=== PATIENT | male | born 1960 | race Caucasian/White ===

== ENCOUNTER 2016-04-23 20:02 | Emergency (ER) | payer OTHER, MEDICAID ==
--- NOTE | 2016-04-23 20:04 | EDPHY ---
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, abd surg w/ "lots of colon removed", difficulty walking - Social History Smoking Status: Current every day smoker Constitutional: Initial Vital Signs Temperature (C) 37.2 C 04/23/16 20:14 Heart Rate 106 H 04/23/16 20:14 Respiratory Rate 22 H 04/23/16 20:14 Blood Pressure 150/103 H 04/23/16 20:14 O2 Sat (%) 92 04/23/16 20:14 O2 Delivery Mode Non-Rebreather Mask O2 (L/minute) 92 Allergies/Adverse Reactions: Penicillins Allergy (Verified 12/27/15 16:15) Home Medications: Medication Instructions Recorded Albuterol [Proventil Neb] 3 ml IH Q4 03/27/15 Fluticasone/Salmeter 250/50Mcg 1 puffs IH BID 03/27/15 [Advair 250/50 (*)] Furosemide [Lasix 20 MG (*)] 20 mg PO DAILY 03/27/15 Ibuprofen [Motrin (*)] 800 mg PO BID 03/27/15 Omeprazole 20 mg PO DAILY 03/27/15 Potassium Cl [Klor-Con 20 meq (*)] 20 meq PO DAILY 03/27/15 Sodium Cl Nasal Gel [[place] Saline 1 brittany NS Q2 PRN 03/27/15 Nasal Gel] Sodium Cl Nasal [[place] (*)] 1 spray NS Q2 PRN 03/27/15 Tiotropium Inhaler [Spiriva 18 mcg IH DAILY 03/27/15 Handihaler] guaiFENesin [Robitussin Oral 200 mg PO Q4 PRN 03/27/15 Liquid (*)] Albuterol [Proventil Neb] 3 ml IH Q6 PRN 11/21/15 Cholecalciferol Vit D3 [Vitamin D3 6,000 units PO DAILY 10/13/16 2000 units tab (OTC)] Ibuprofen [Motrin (*)] 800 mg PO Q6 PRN 11/21/15 Polyethylene Glycol 3350 [Miralax 17 gm PO BID PRN 11/21/15 17 gm (*)] Polyethylene Glycol 3350 [Miralax 17 gm PO DAILY 11/21/15 17 gm (*)] predniSONE 10 mg PO DAILY 11/21/15 Cefdinir [Omnicef (*)] 300 mg PO BID #10 cap 11/24/15 predniSONE 40 mg PO DAILY #0 tablet 11/24/15 Medical Decision Making ED Course/Re-evaluation: CHIEF COMPLAINT: Dyspnea, hemoptysis HISTORY OF PRESENT ILLNESS: The patient is a 56 y/o male arriving via EMS from [facility] with reported hemoptysis and dyspnea. He complains of lower abdominal pain and has a history of colon cancer with colostomy. He is otherwise noncontributory and minimally cooperative with assessment. Staff reports that he was drinking alcohol today. He has additional history of COPD with chronic respiratory failure, is wheelchair bound, and has cirrhosis. His last admission for pneumonia and hypoxemia was in November 2015. REVIEW OF SYSTEMS: A 10 point review of systems was performed and is negative with the exception of the elements mentioned in the history of present illness. PHYSICAL EXAM: HR, BP, O2 Sat, RR. Temp noted General Appearance: Alert, well hydrated, follows commands but minimally conversant, and non-toxic appearing. Smells of EtOH Head: Atraumatic without scalp tenderness or obvious injury Eyes: Pupils equal, round, reactive to light and accommodation, EOMI, no trauma , no injection. Ears: Clear bilaterally, no perforation, normal landmarks Nose: Atraumatic, no rhinorrhea, clear. Throat: There is no erythema or exudates, no lesions, normal tonsils, mucus membranes moist. Neck: Supple, nontender, no lymphadenopathy. Respiratory: No retractions, no distress, no wheezes, and no accessory muscle use. Lungs have rhonchi bilaterally. Cardiovascular: Regular rate and rhythm, no murmurs, rubs, or gallops. Good capillary refill all extremities. Gastrointestinal: Abdomen is soft, diffuse tenderness, non-distended, umbilical hernia is reducible, no rebound, no guarding, no peritoneal signs. Ostomy present with poor output. Musculoskeletal: Normal active ROM of all extremities, atraumatic. No pedal edema. Neurological: Alert, oriented x2, and minimally interactive. Exam consistent with alcohol intoxication. Skin: No rashes, good turgor, no nodules on palpation. Past medical history: COPD, colon cancer, osteoarthritis, alcoholic, wheelchair bound, chronic respiratory failure, cirrhosis Past surgical history: colostomy, craniotomy age 7 Family history: noncontributory Social history: alcohol abuse, heavy smoker, hx IV drug abuse Prior medical records reviewed including admission DIAGNOSTICS/PROCEDURES/CRITICAL CARE TIME: Study: CT of the Chest Indication: dyspnea Results: CT scan of the chest was obtained. The results of the study are two new spiculate lesions that were not present in 2016, bibasilar mucous plugging and atelectasis. The study was read by the radiologist, Dr. López. I viewed the images myself on the PACS system. Study: CT of the Abdomen Indication: pain Results: CT scan of the abdomen was obtained. The results of the study are nothing acute The study was read by the radiologist, Dr. López. I viewed the images myself on the PACS system. DIFFERENTIAL DIAGNOSIS: The differential diagnosis for the patient's shortness of breath included but was not limited to bronchitis, COPD exacerbation, pneumonia, myocardial infarction, acute mountain sickness, high altitude pulmonary edema, congestive heart failure, and pulmonary embolus. MEDICAL DECISION MAKING: This is a chronically-ill appearing 56 y/o male who presents with dyspnea and abdominal pain. He has bilateral rhonchi throughout, smells of EtOH, and has diffuse abdominal tenderness. His ostomy output is minimal. He smells of EtOH. Plan for IV, labs, EtOH serum level, and chest and abdomen CTs. EtOH serum is 348. CTs show new lung lesions but an unremarkable abdomen. He will be discharged on azithromycin for bronchitis with recommendation to have repeat PET scan with his PCP next week. He will be discharged back to his facility. - Data Points Laboratory Results: Laboratory Results 04/23/16 20:30 04/23/16 20:30 04/23/16 04/23/16 04/23/16 20:30 20:30 20:30 WBC 12.06 10^3/uL H 10^3/uL (3.80-9.50) RBC 4.30 10^6/uL L 10^6/uL (4.40-6.38) Hgb 13.0 g/dL L g/dL (13.7-17.5) Hct 39.4 % L % (40.0-51.0) MCV 91.6 fL fL (81.5-99.8) MCH 30.2 pg pg (27.9-34.1) MCHC 33.0 g/dL g/dL (32.4-36.7) RDW 12.9 % % (11.5-15.2) Plt Count 228 10^3/uL 10^3/uL (150-400) MPV 9.3 fL fL (8.7-11.7) Neut % (Auto) 80.9 % H % (39.3-74.2) Lymph % (Auto) 11.1 % L % (15.0-45.0) [place] % (Auto) 7.0 % % (4.5-13.0) Eos % (Auto) 0.4 % L % (0.6-7.6) Baso % (Auto) 0.2 % L % (0.3-1.7) Nucleat RBC Rel Count 0.0 % % (0.0-0.2) Absolute Neuts (auto) 9.75 10^3/uL H 10^3/uL (1.70-6.50) Absolute Lymphs (auto) 1.34 10^3/uL 10^3/uL (1.00-3.00) Absolute Monos (auto) 0.84 10^3/uL H 10^3/uL (0.30-0.80) Absolute Eos (auto) 0.05 10^3/uL 10^3/uL (0.03-0.40) Absolute Basos (auto) 0.03 10^3/uL 10^3/uL (0.02-0.10) Absolute Nucleated RBC 0.00 10^3/uL 10^3/uL (0-0.01) Immature Gran % 0.4 % % (0.0-1.1) Immature Gran # 0.05 10^3/uL 10^3/uL (0.00-0.10) Sodium 140 mEq/L mEq/L (134-144) Potassium 4.1 mEq/L mEq/L (3.5-5.2) Chloride 87 mEq/L L mEq/L (97-110) Carbon Dioxide 34 mEq/l H mEq/l (22-31) Anion Gap 19 mEq/L H mEq/L (8-16) BUN 14 mg/dL mg/dL (7-23) Creatinine 0.5 mg/dL L mg/dL (0.7-1.3) Estimated GFR > 60 Glucose 103 mg/dL H mg/dL (70-100) Calcium 9.3 mg/dL mg/dL (8.5-10.4) Total Bilirubin 1.1 mg/dL mg/dL (0.1-1.4) Conjugated Bilirubin 0.6 mg/dL H mg/dL (0.0-0.5) Unconjugated Bilirubin 0.5 mg/dL mg/dL (0.0-1.1) AST 39 IU/L IU/L (17-59) ALT 53 IU/L IU/L (21-72) Alkaline Phosphatase 58 IU/L IU/L (38-126) Troponin I 0.013 ng/mL ng/mL (0-0.034) NT-Pro-B Natriuret Pep 72 pg/mL pg/mL (0-125) Total Protein 8.5 g/dL H g/dL (6.3-8.2) Albumin 4.6 g/dL g/dL (3.5-5.0) Ethyl Alcohol 348 mg/dL H mg/dL (0-10) Medications Given: Discontinued Medications Albuterol/Ipratropium (Duoneb) 3 ml IH EDNOW ONE Stop: 04/23/16 20:33 Last Admin: 04/23/16 20:47 Dose: 3 ml Sodium Chloride (Ns) 500 mls @ 0 mls/hr IV ONCE ONE PRN Reason: As Directed Stop: 04/23/16 20:33 Last Admin: 04/23/16 20:47 Dose: 500 mls Departure - Departure Disposition: Home, Routine, Self-Care Clinical Impression: Bronchitis, Lesion of lung Alcohol intoxication Qualifiers: Complication of substance-induced condition: uncomplicated Qualified Code(s): F10.120 - Alcohol abuse with intoxication, uncomplicated Condition: Fair Instructions: Alcohol Intoxication (ED), Acute Bronchitis (ED) Additional Instructions: 1. Take azithromycin as prescribed. Be sure to complete the entire prescription. 2. Follow up with your primary care provider on Wednesday to evaluate new abnormal findings of your lungs on your chest CT. The radiologist recommends getting a PET scan for further evaluation. Referrals: Win Wade MD [Medical Doctor] - As per Instructions Report Scribed for: Beau Aguillon Report Scribed by: Radha Malin Date of Report: 04/23/16 Time of Report: 21:48
[2016-04-23 20:18] VITALS: O2SAT 92
[2016-04-23] MEDS ORDERED: IPRATROPIUM/ALBUTEROL 3 ML DEYVIAL IH ONE (20:32)
[2016-04-23] MEDS ORDERED: NS 500 ML IV ONE (20:32)
[2016-04-23] MEDS ORDERED: IOPAMIDOL (ISOVUE 370) 100 ML BTL IV ONE (20:35)
[2016-04-23 20:36] LABS: % IMMATURE GRANULYOCYTES 0.4 % (0.0-1.1); ABSOLUTE IMMATURE GRANULOCYTES 0.05 10^3/uL (0.00-0.10); ADD DIFF? NO; ADD MORPH? NO; ADD SCAN? NO; ATYPICAL LYMPHOCYTE FLAG 10 (0-99); FRAGMENT RBC FLAG 0 (0-99); HEMATOCRIT 39.4 % (40.0-51.0); LEFT SHIFT FLG 0 (0-99); LIPEMIA HEMOLYSIS FLAG 80 (0-99); MEAN CELL HEMOGLOBIN 30.2 pg (27.9-34.1); MEAN CELL VOLUME 91.6 fL (81.5-99.8); MEAN PLATELET VOLUME 9.3 fL (8.7-11.7); PLATELET CLUMPS FLAG 0 (0-99); PLATELET COUNT 228 10^3/uL (150-400); RED CELL DISTRIBUTION WIDTH 12.9 % (11.5-15.2)
[2016-04-23 20:59] LABS: ALBUMIN 4.6 g/dL (3.5-5.0); BILIRUBIN,TOTAL 1.1 mg/dL (0.1-1.4); BILIRUBIN-CONJUGATED 0.6 mg/dL (0.0-0.5); BILIRUBIN-UNCONJUGATED 0.5 mg/dL (0.0-1.1); TOTAL PROTEIN 8.5 g/dL (6.3-8.2)
[2016-04-23 21:00] LABS: ANION GAP 19 mEq/L (8-16); CALCIUM 9.3 mg/dL (8.5-10.4); CARBON DIOXIDE 34 mEq/l (22-31); CHLORIDE 87 mEq/L (97-110); CREATININE 0.5 mg/dL (0.7-1.3); GLOMERULAR FILTRATION RATE > 60; GLUCOSE 103 mg/dL (70-100); POTASSIUM 4.1 mEq/L (3.5-5.2); SODIUM 140 mEq/L (134-144)
[2016-04-23 21:11] LABS: TROPONIN I 0.013 ng/mL (0-0.034)
[2016-04-23 21:19] LABS: ETHANOL SERUM 348 mg/dL (0-10)
[2016-04-23] MEDS ORDERED: AZITHROMYCIN 250 MG TAB PO ONE (21:44)
[2016-04-23 22:22] VITALS: BP 127/63; PULSE 98; RESP 20; TEMP 98.6
== END 2016-04-23 22:21 | disposition home or self-care (01) ==
LOC: EDUNIT#
DX: R91.1 Solitary pulmonary nodule (principal); J40 Bronchitis, not specified as acute or chronic; F10.120 Alcohol abuse with intoxication, uncomplicated; J44.9 Chronic obstructive pulmonary disease, unspecified; F17.200 Nicotine dependence, unspecified, uncomplicated; Z85.038 Personal history of other malignant neoplasm of large intestine
CPT/HCPCS: 71275; 74177; 99285; Q9967; G0480

== ENCOUNTER 2016-10-10 16:56 | Emergency (ER) | payer OTHER, MEDICAID ==
--- NOTE | 2016-10-10 16:57 | EDPHY ---
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, abd surg w/ "lots of colon removed", difficulty walking - Social History Smoking Status: Current every day smoker Constitutional: Initial Vital Signs Temperature (C) 36.7 C 10/10/16 16:56 Heart Rate 106 H 10/10/16 16:56 Respiratory Rate 20 10/10/16 16:56 Blood Pressure 147/90 H 10/10/16 16:56 O2 Sat (%) 94 10/10/16 16:56 O2 Delivery Mode Nasal Cannula O2 (L/minute) 6 Allergies/Adverse Reactions: Penicillins Allergy (Verified 10/10/16 17:01) Home Medications: Medication Instructions Recorded Albuterol [Proventil Neb] 3 ml IH Q4 03/27/15 Fluticasone/Salmeter 250/50Mcg 1 puffs IH BID 03/27/15 [Advair 250/50 (*)] Furosemide [Lasix 20 MG (*)] 20 mg PO DAILY 03/27/15 Ibuprofen [Motrin (*)] 800 mg PO BID 03/27/15 Omeprazole 20 mg PO DAILY 03/27/15 Potassium Cl [Klor-Con 20 meq (*)] 20 meq PO DAILY 03/27/15 Sodium Cl Nasal Gel [[place] Saline 1 brittany NS Q2 PRN 03/27/15 Nasal Gel] Sodium Cl Nasal [[place] (*)] 1 spray NS Q2 PRN 03/27/15 Tiotropium Inhaler [Spiriva 18 mcg IH DAILY 03/27/15 Handihaler] guaiFENesin [Robitussin Oral 200 mg PO Q4 PRN 03/27/15 Liquid (*)] Albuterol [Proventil Neb] 3 ml IH Q6 PRN 11/21/15 Cholecalciferol Vit D3 [Vitamin D3 6,000 units PO DAILY 11/21/15 2000 units tab (OTC)] Ibuprofen [Motrin (*)] 800 mg PO Q6 PRN 11/21/15 Polyethylene Glycol 3350 [Miralax 17 gm PO BID PRN 11/21/15 17 gm (*)] Polyethylene Glycol 3350 [Miralax 17 gm PO DAILY 11/21/15 17 gm (*)] predniSONE 10 mg PO DAILY 11/21/15 Cefdinir [Omnicef (*)] 300 mg PO BID #10 cap 11/24/15 predniSONE 40 mg PO DAILY #0 tablet 11/24/15 AZITHROMYCIN [Z-PACK] 250 mg PO DAILY #1 packet 04/23/16 Medical Decision Making - Diagnostics Imaging Results: Imaging Impressions Abdomen CT 10/10/16 17:08 Impression: 1. Moderate stool in the proximal colon, with no acute findings. 2. Stable appearance of Harjit's pouch. 3. Cholelithiasis, without evidence of cholecystitis. 4. Stable minimal nodular thickening of the gallbladder fundus, of doubtful clinical significance given the interval stability. 5. Additional findings, as above. Findings discussed with Beau Aguillon M.D., on October 10, 2016 at 1832. Imaging: Discussed imaging studies w/ brake drum molder Radiologist, I viewed and interpreted images myself ED Course/Re-evaluation: CHIEF COMPLAINT: Stoma complications HISTORY OF PRESENT ILLNESS: The patient is a 56 y/o male who presents with abdominal pain secondary to stoma complications. He had pancreatic cancer, which led to a Whipple. Ten years ago he had a blockage of his stoma. He has had no output from is stoma for 1.5 days. Denies chest pain, fever, chills, or other systemic illness. REVIEW OF SYSTEMS: A 10 point review of systems was performed and is negative with the exception of the elements mentioned in the history of present illness. PHYSICAL EXAM: HR, BP, O2 Sat, RR. Temp noted General Appearance: Alert, well hydrated, appropriate, and non-toxic appearing. Head: Atraumatic without scalp tenderness or obvious injury Eyes: Pupils equal, round, reactive to light and accommodation, EOMI, no trauma , no injection. Ears: Clear bilaterally, no perforation, normal landmarks Nose: Atraumatic, no rhinorrhea, clear. Throat: There is no erythema or exudates, no lesions, normal tonsils, mucus membranes moist. Neck: Supple, 2+ carotid upstroke, nontender, no lymphadenopathy. Respiratory: No retractions, no distress, no wheezes, and no accessory muscle use. Lungs are clear to auscultation bilaterally. Cardiovascular: Regular rate and rhythm, no murmurs, rubs, or gallops. Bilateral carotid, radial, dorsalis pedis, and posterior tibial pulses intact. Good capillary refill all extremities. Gastrointestinal: No obstruction of stoma, without parastomal hernia. Abdomen is soft, nontender, non-distended, no masses, no rebound, no guarding, no peritoneal signs. Musculoskeletal: Normal active ROM of all extremities, atraumatic. Neurological: Alert, appropriate, and interactive. The patient has normal DTRs and non-focal cranial nerves, motor, sensory, and cerebellar exam. Skin: No rashes, good turgor, no nodules on palpation. Past medical history: Pancreatic cancer, Past surgical history: Whipple, ostomy Family history: Noncontributory Social history: Resides in [place], originally from [place], DIAGNOSTICS/PROCEDURES/CRITICAL CARE TIME: Study: CT of the abdomen and pelvis with IV contrast Indication: rule out obstruction Results: CT scan of the abdomen and pelvis was obtained. The results of the study are constipation but no evidence of obstruction or other cause for abdominal distention. The study was read by the radiologist, Dr. Bubba Clifford. I viewed the images myself on the PACS system. DIFFERENTIAL DIAGNOSIS: The differential diagnosis for the patient's abdominal pain included but was not limited to appendicitis, cholecystitis, hernias, testicular torsion, gastritis, and urinary tract infection. MEDICAL DECISION MAKING: The patient is 56 y/o male who presents with abdominal pain . He is worried that he has an obstruction he has had 1 about 10 years ago. On exam there is no parastomal hernia, but the patient is at risk for bowel obstruction due to his extensive abdominal surgeries related to his pancreatic cancer and ostomy. 1742: Lab results show an slightly elevated white count. CT is unremarkable except for constipation. We will discharge this patient home taking some MiraLax. - Data Points Laboratory Results: Laboratory Results 10/10/16 16:55 10/10/16 16:55 10/10/16 10/10/16 16:55 16:55 WBC 12.74 10^3/uL H 10^3/uL (3.80-9.50) RBC 4.68 10^6/uL 10^6/uL (4.40-6.38) Hgb 13.8 g/dL g/dL (13.7-17.5) Hct 43.2 % % (40.0-51.0) MCV 92.3 fL fL (81.5-99.8) MCH 29.5 pg pg (27.9-34.1) MCHC 31.9 g/dL L g/dL (32.4-36.7) RDW 13.2 % % (11.5-15.2) Plt Count 239 10^3/uL 10^3/uL (150-400) MPV 9.8 fL fL (8.7-11.7) Neut % (Auto) 84.7 % H % (39.3-74.2) Lymph % (Auto) 8.9 % L % (15.0-45.0) [place] % (Auto) 4.9 % % (4.5-13.0) Eos % (Auto) 0.6 % % (0.6-7.6) Baso % (Auto) 0.4 % % (0.3-1.7) Nucleat RBC Rel Count 0.0 % % (0.0-0.2) Absolute Neuts (auto) 10.80 10^3/uL H 10^3/uL (1.70-6.50) Absolute Lymphs (auto) 1.13 10^3/uL 10^3/uL (1.00-3.00) Absolute Monos (auto) 0.62 10^3/uL 10^3/uL (0.30-0.80) Absolute Eos (auto) 0.08 10^3/uL 10^3/uL (0.03-0.40) Absolute Basos (auto) 0.05 10^3/uL 10^3/uL (0.02-0.10) Absolute Nucleated RBC 0.00 10^3/uL 10^3/uL (0-0.01) Immature Gran % 0.5 % % (0.0-1.1) Immature Gran # 0.06 10^3/uL 10^3/uL (0.00-0.10) Sodium 139 mEq/L mEq/L (134-144) Potassium 3.8 mEq/L mEq/L (3.5-5.2) Chloride 92 mEq/L L mEq/L (97-110) Carbon Dioxide 29 mEq/l mEq/l (22-31) Anion Gap 18 mEq/L H mEq/L (8-16) BUN 14 mg/dL mg/dL (7-23) Creatinine 0.6 mg/dL L mg/dL (0.7-1.3) Estimated GFR > 60 Glucose 162 mg/dL H mg/dL (70-100) Calcium 10.1 mg/dL mg/dL (8.5-10.4) Total Bilirubin 0.8 mg/dL mg/dL (0.1-1.4) Conjugated Bilirubin 0.3 mg/dL mg/dL (0.0-0.5) Unconjugated Bilirubin 0.5 mg/dL mg/dL (0.0-1.1) AST 26 IU/L IU/L (17-59) ALT 35 IU/L IU/L (21-72) Alkaline Phosphatase 51 IU/L IU/L (38-126) Total Protein 8.4 g/dL H g/dL (6.3-8.2) Albumin 4.6 g/dL g/dL (3.5-5.0) Lipase 56 IU/L IU/L (23-300) Departure - Departure Disposition: Home, Routine, Self-Care Clinical Impression: Constipation Qualifiers: Constipation type: chronic idiopathic constipation Qualified Code(s): K59.04 - Chronic idiopathic constipation Condition: Good Instructions: Constipation (ED), High Fiber Diet (ED) Additional Instructions: 1. Take Miralax as prescribed on the bottle. 2. Take 1 pint of magnesium citrate in addition to Miralax. 3. Follow up with your primary care provider for unimproved symptoms. Dr. Braden Alicia is the event specialist food demonstrator physician if you do not have a primary care physician. 4. Return to the ED if you experience, fever, worsening abdominal pain, nausea, vomiting, or other severe worsening of your symptoms. Referrals: Patient,NotPresent [Primary Care Provider] - As per Instructions Report Scribed for: Beau Aguillon Report Scribed by: Andie Whitlock Date of Report: 10/10/16 Time of Report: 18:51
[2016-10-10 17:13] LABS: % IMMATURE GRANULYOCYTES 0.5 % (0.0-1.1); ABSOLUTE IMMATURE GRANULOCYTES 0.06 10^3/uL (0.00-0.10); ADD DIFF? NO; ADD MORPH? NO; ADD SCAN? NO; ATYPICAL LYMPHOCYTE FLAG 0 (0-99); FRAGMENT RBC FLAG 0 (0-99); HEMATOCRIT 43.2 % (40.0-51.0); HEMOGLOBIN 13.8 g/dL (13.7-17.5); LEFT SHIFT FLG 0 (0-99); LIPEMIA HEMOLYSIS FLAG 80 (0-99); MEAN CELL HEMOGLOBIN 29.5 pg (27.9-34.1); MEAN CELL HEMOGLOBIN CONCENTR. 31.9 g/dL (32.4-36.7); MEAN CELL VOLUME 92.3 fL (81.5-99.8); MEAN PLATELET VOLUME 9.8 fL (8.7-11.7); PLATELET CLUMPS FLAG 0 (0-99); PLATELET COUNT 239 10^3/uL (150-400); RED BLOOD CELL COUNT 4.68 10^6/uL (4.40-6.38); RED CELL DISTRIBUTION WIDTH 13.2 % (11.5-15.2)
[2016-10-10 17:29] LABS: ALANINE AMINOTRANSFERASE 35 IU/L (21-72); ALBUMIN 4.6 g/dL (3.5-5.0); ALKALINE PHOSPHATASE 51 IU/L (38-126); ANION GAP 18 mEq/L (8-16); ASPARTATE AMINOTRANSFERASE 26 IU/L (17-59); BILIRUBIN,TOTAL 0.8 mg/dL (0.1-1.4); BILIRUBIN-CONJUGATED 0.3 mg/dL (0.0-0.5); BILIRUBIN-UNCONJUGATED 0.5 mg/dL (0.0-1.1); CALCIUM 10.1 mg/dL (8.5-10.4); CARBON DIOXIDE 29 mEq/l (22-31); CHLORIDE 92 mEq/L (97-110); CREATININE 0.6 mg/dL (0.7-1.3); GLOMERULAR FILTRATION RATE > 60; GLUCOSE 162 mg/dL (70-100); POTASSIUM 3.8 mEq/L (3.5-5.2); SODIUM 139 mEq/L (134-144); TOTAL PROTEIN 8.4 g/dL (6.3-8.2)
[2016-10-10] MEDS ORDERED: IOPAMIDOL (ISOVUE-300) 100 ML BTL ONE (17:36)
[2016-10-10 18:55] VITALS: PULSE 92; TEMP 98.2
[2016-10-10 19:23] VITALS: BP 116/83; RESP 16; O2SAT 97
== END 2016-10-10 19:56 | disposition home or self-care (01) ==
LOC: EDUNIT#
DX: K59.04 Chronic idiopathic constipation (principal); F17.200 Nicotine dependence, unspecified, uncomplicated; J44.9 Chronic obstructive pulmonary disease, unspecified; Z85.038 Personal history of other malignant neoplasm of large intestine
CPT/HCPCS: 74177; 99285; Q9967

== ENCOUNTER 2017-01-02 07:37 | Inpatient (IN) | payer OTHER, MEDICAID ==
--- NOTE | 2017-01-02 07:37 | EDPHY ---
HPI/HX/ROS/PE/MDM Narrative: CHIEF COMPLAINT: Shortness of breath HPI: The patient is a 56 y/o male arriving emergently via EMS from [place] complaining of severe shortness of breath that began last night, although staff reported it began acutely at shift change this morning. The patient has a history that includes COPD and is chronically on 6L and a daily cigarette smoker. He initially was barely able to speak and EMS found him with an initial HR of 170 and RR of 40. EMS administered a duo neb en route as patient was unable to tolerate CPAP. After morphine administration in the ED, he is able to tell me he's had chest pain and a fever for a few days. He was admitted last year with similar symptoms and diagnosed with pneumonia. Did get a flu vaccination this year. REVIEW OF SYSTEMS: Aside from elements discussed in the HPI, a comprehensive 10-point review of systems was reviewed and is negative. PMH: 1. COPD, chronic bronchitis 2. Anemia 3. Depression 4. GERD with esophagitis 5. Hepatitis C 6. Colon cancer 7. History of alcohol abuse 8. TBI at age 14 requiring surgery 9. Wheelchair-bound PSH: 1. Appendectomy 2. Colon resection with colostomy SOCIAL HISTORY: Lives at [place]. DNR transferred with patient PHYSICAL EXAM: General:Patient is alert, in respiratory distress, tachypneic, grunting, diaphoretic. Febrile 38.6C. ENT:Eyes are normal to inspection. ENT inspection normal. Neck: Normal inspection. Full range of motion. Respiratory: Acute respiratory distress. Pursed lip breathing. Expiratory grunting. Breath sounds diminished bilaterally. Tachypneic. Cardiovascular: Rapid regular rate and rhythm. Strong peripheral pulses. Normal cap refill. Abdomen:The abdomen is nontender to palpation. There are no peritoneal signs. Ostomy. Back: Normal to inspection. No tenderness to palpation. Skin: Normal color. No rash. Warm and diaphoretic. Extremities: Legs have atrophied appearance. Normal passive range of motion. Neuro: Oriented x3. Normal motor function. Normal sensory function. ED Course: 735: Met EMS upon arrival and took report. This is a 56 y/o male with COPD and several comorbidities who presents with a several hour history of respiratory distress. He was unable to tolerate CPAP en route. EMS administered a duo neb and high flow O2 for symptoms. He is diaphoretic, tachypneic, tachycardic, febrile, and has pursed lip breathing on exam. He is currently unable to tolerate BiPAP here. His SpO2 is wavering between 88-90% with 15LPM O2 after the duo neb. Plan for IV, labs, chest x-ray, EKG, and respiratory management in conjunction with RT. The patient has a DNR and though he could be a candidate for intubation, we will focus on non-invasive respiratory care in line with his wishes. 0744: 4mg IV morphine administered for chest pain. 0747: Patient is currently on 15LPM via Oxy mask, and 5LPM via NC, which is maintaining his SpO2 around 91-92%. I have been unable to convince him to try BiPap though I believe this will help his symptoms significantly. The 12 lead EKG was interpreted by myself. Narrow complex, sinus tachycardia rate 168. See hard copy and/or "tracemaster" electronic copy for interpretation. Chest x-ray shows LLL pneumonia. 750mg IV Levaquin ordered. Patient meets criteria for sepsis. Sepsis labs drawn. Patient will still not tolerate BiPap. 1mg IV Ativan and 4mg IV morphine administered for pain and anxiety. Patient meets severe sepsis with WBC 29, fever, tachycardia, and source of infection. 2L IV NS ordered. 0816: Spoke with Dr. Martinez, hospitalist. He accepts admission for pneumonia and respiratory failure. RT has attempted 6 times to get an ABG and has not been successful. Critical care time spent by me, Dr. Zavala, exclusively with this patient was 45 minutes, exclusive of PA time and exclusive of procedures. The organ system at risk was respiratory and I urgently treated for respiratory failure, severe sepsis, and pneumonia to prevent worsening of the patient's condition. MDM: This patient presents with acute severe respiratory failure, and would certainly be a case for immediate intubation, but patient arrives with a signed MOST form indicating he is DNR/DNI and he agrees verbally with this as well. We attempted BiPAP but the patient would not tolerate it. I also considered central venous access, but patient indicates he does not want aggressive measures performed. He clearly is very ill with pneumonia among other medical issues. He requires admission to the ICU. - Data Points Imaging Results: Imaging Impressions Chest X-Ray 01/02/17 07:39 Impression: New left perihilar airspace consolidation. Pneumonia versus aspiration, versus less likely, mass with central obstruction (no associated volume loss). Imaging: I viewed and interpreted images myself Laboratory Results: Laboratory Results 01/02/17 07:45 01/02/17 07:45 01/02/17 01/02/17 01/02/17 08:08 08:05 07:45 WBC RBC Hgb POC Hgb Hct POC Hct MCV MCH MCHC RDW Plt Count MPV Neut % (Auto) Lymph % (Auto) [place] % (Auto) Eos % (Auto) Baso % (Auto) Nucleat RBC Rel Count Absolute Neuts (auto) Absolute Lymphs (auto) Absolute Monos (auto) Absolute Eos (auto) Absolute Basos (auto) Absolute Nucleated RBC Immature Gran % Seg Neutrophils % Band Neutrophils % Lymphocytes % Monocytes % Immature Gran # Absolute Seg Neuts Absolute Band Neuts Absolute Lymphocytes Absolute Monocytes RBC/WBC/PLT Morphology Platelet Estimate Smear Review By PT 14.9 SEC SEC (12.0-15.0) INR 1.17 H (0.83-1.16) APTT 28.5 SEC SEC (23.0-38.0) VBG Lactic Acid 2.1 mmol/L mmol/L (0.7-2.1) POC Sodium Sodium POC Potassium Potassium POC Chloride Chloride Carbon Dioxide Anion Gap POC BUN BUN Creatinine POC Creatinine Estimated GFR Glucose POC Glucose Calcium Magnesium Pending Troponin I Procalcitonin Pending 01/02/17 01/02/17 01/02/17 07:45 07:45 07:38 WBC 29.06 10^3/uL H 10^3/uL (3.80-9.50) RBC 4.06 10^6/uL L 10^6/uL (4.40-6.38) Hgb 12.5 g/dL L g/dL (13.7-17.5) POC Hgb 14.6 gm/dL gm/dL (13.7-17.5) Hct 37.9 % L % (40.0-51.0) POC Hct 43 % % (40-51) MCV 93.3 fL fL (81.5-99.8) MCH 30.8 pg pg (27.9-34.1) MCHC 33.0 g/dL g/dL (32.4-36.7) RDW 13.2 % % (11.5-15.2) Plt Count 300 10^3/uL 10^3/uL (150-400) MPV 9.3 fL fL (8.7-11.7) Neut % (Auto) Not Reported Lymph % (Auto) Not Reported [place] % (Auto) Not Reported Eos % (Auto) Not Reported Baso % (Auto) Not Reported Nucleat RBC Rel Count 0.0 % % (0.0-0.2) Absolute Neuts (auto) Not Reported Absolute Lymphs (auto) Not Reported Absolute Monos (auto) Not Reported Absolute Eos (auto) Not Reported Absolute Basos (auto) Not Reported Absolute Nucleated RBC 0.00 10^3/uL 10^3/uL (0-0.01) Immature Gran % Not Reported Seg Neutrophils % 65 % % Band Neutrophils % 15 % % Lymphocytes % 9 % % Monocytes % 11 % % Immature Gran # Not Reported Absolute Seg Neuts 18.89 10^/uL H 10^/uL (1.70-6.50) Absolute Band Neuts 4.36 10^3/uL H 10^3/uL (0.00-0.70) Absolute Lymphocytes 2.62 10^3/uL 10^3/uL (1.00-3.00) Absolute Monocytes 3.20 10^3/uL H 10^3/uL (0.30-0.80) RBC/WBC/PLT Morphology NORMAL (NORMAL) Platelet Estimate ADEQUATE (ADEQ) Smear Review By Pending PT INR APTT VBG Lactic Acid POC Sodium 138 mEq/L mEq/L (134-144) Sodium 140 mEq/L mEq/L (134-144) POC Potassium 3.7 mEq/L mEq/L (3.3-5.0) Potassium 3.9 mEq/L mEq/L (3.5-5.2) POC Chloride 91 mEq/L L mEq/L (97-110) Chloride 89 mEq/L L mEq/L (97-110) Carbon Dioxide 34 mEq/l H mEq/l (22-31) Anion Gap 17 mEq/L H mEq/L (8-16) POC BUN 16 mg/dL mg/dL (7-23) BUN 16 mg/dL mg/dL (7-23) Creatinine 0.8 mg/dL mg/dL (0.7-1.3) POC Creatinine 0.9 mg/dL mg/dL (0.7-1.3) Estimated GFR > 60 Glucose 166 mg/dL H mg/dL (70-100) POC Glucose 172 mg/dL H mg/dL (70-100) Calcium 9.4 mg/dL mg/dL (8.5-10.4) Magnesium Troponin I 0.115 ng/mL H ng/mL (0.000-0.034) Procalcitonin Medications Given: Levofloxacin/Dextrose (Levaquin 750 Mg (Premix)) 150 mls @ 100 mls/hr IV EDNOW ONE PRN Reason: Protocol Stop: 01/02/17 09:27 Last Admin: 01/02/17 08:08 Dose: 150 mls Discontinued Medications Sodium Chloride (Ns) 2,200 mls @ 4,400 mls/hr 30 ml/kg infuse over 30 min ( 2200 ml) IV EDNOW ONE PRN Reason: Protocol Stop: 01/02/17 08:54 Last Admin: 01/02/17 07:40 Dose: 2,200 mls Lorazepam (Ativan Injection) 1 mg IVP EDNOW ONE Stop: 01/02/17 08:09 Last Admin: 01/02/17 08:11 Dose: 1 mg Morphine Sulfate (Morphine) 4 mg IVP EDNOW ONE Stop: 01/02/17 08:04 Last Admin: 01/02/17 08:09 Dose: 4 mg Morphine Sulfate (Morphine) 4 mg IVP EDNOW ONE Stop: 01/02/17 08:15 Last Admin: 01/02/17 08:20 Dose: 4 mg Point of Care Test Results: 01/02/17 07:38 POC Sodium 138 POC Potassium 3.7 POC Chloride 91 L POC BUN 16 POC Creatinine 0.9 POC Glucose 172 H General Initial Vital Signs: Initial Vital Signs Temperature (C) 38.6 C H 01/02/17 07:36 Heart Rate 168 H 01/02/17 07:36 Respiratory Rate 44 H 01/02/17 07:36 Blood Pressure 163/108 H 01/02/17 07:36 O2 Sat (%) 92 01/02/17 07:36 O2 Delivery Mode Nasal Cannula O2 (L/minute) 15 Allergies/Adverse Reactions: Penicillins Allergy (Verified 10/10/16 17:01) Home Medications: Medication Instructions Recorded Fluticasone/Salmeter 250/50Mcg 1 puffs IH BID 03/27/15 [Advair 250/50 (*)] Furosemide [Lasix 20 MG (*)] 20 mg PO DAILY 03/27/15 Omeprazole 20 mg PO DAILY 03/27/15 Potassium Cl [Klor-Con 20 meq (*)] 20 meq PO DAILY 03/27/15 Sodium Cl Nasal [[place] (*)] 1 spray NS Q2 PRN 03/27/15 Tiotropium Inhaler [Spiriva 18 mcg IH DAILY 03/27/15 Handihaler] Albuterol [Proventil Neb] 3 ml IH Q4 PRN 11/21/15 Cholecalciferol Vit D3 [Vitamin D3 6,000 units PO DAILY 11/21/15 2000 units tab (OTC)] Polyethylene Glycol 3350 [Miralax 17 gm PO HS 11/21/15 17 gm (*)] Ibuprofen [Motrin (*)] 600 mg PO BID 01/02/17 Departure - Departure Disposition: [facility] Inpatient Acute Clinical Impression: Severe sepsis Pneumonia Qualifiers: Pneumonia type: due to unspecified organism Laterality: left Lung location: lower lobe of lung Qualified Code(s): J18.1 - Lobar pneumonia, unspecified organism Respiratory failure Qualifiers: Chronicity: acute Respiratory failure complication: hypoxia Qualified Code(s): J96.01 - Acute respiratory failure with hypoxia Condition: Fair Report Scribed for: Immanuel Zavala Report Scribed by: Radha Malin Date of Report: 01/02/17 Time of Report: 07:30 Physician Review and Approval Statement: Portions of this note were transcribed by an ED scribe. I personally performed the history, physical exam, and medical decision making; and confirm the accuracy of the information in the transcribed note.
[2017-01-02] MEDS: NS 2,200 ML IV ONE ×2 (07:40→09:15)
--- NOTE | 2017-01-02 07:50 | CPEKG ---
Heart Rate: 168 RR Interval: 357 P-R Interval: 110 QRSD Interval: 244 QT Interval: 376 QTC Interval: 629 P Arthur: -60 QRS Arthur: 41 T Wave Arthur: -79 EKG Severity - ABNORMAL ECG - EKG Impression: Sinus tachycardia vs SVT, cannot differentiate due to artifact Electronically Signed By: Ant Rosales 04-Jan-2017 11:04:08
[2017-01-02 07:55] LABS: ADD DIFF? YES; ADD MORPH? NO; ATYPICAL LYMPHOCYTE FLAG 0 (0-99); FRAGMENT RBC FLAG 0 (0-99); HEMATOCRIT 37.9 % (40.0-51.0); HEMOGLOBIN 12.5 g/dL (13.7-17.5); LEFT SHIFT FLG 130 (0-99); LIPEMIA HEMOLYSIS FLAG 80 (0-99); MEAN CELL HEMOGLOBIN 30.8 pg (27.9-34.1); MEAN CELL VOLUME 93.3 fL (81.5-99.8); MEAN PLATELET VOLUME 9.3 fL (8.7-11.7); PLATELET CLUMPS FLAG 0 (0-99); PLATELET COUNT 300 10^3/uL (150-400); RED BLOOD CELL COUNT 4.06 10^6/uL (4.40-6.38); RED CELL DISTRIBUTION WIDTH 13.2 % (11.5-15.2)
[2017-01-02 07:56] LABS: ADD SCAN? NO
[2017-01-02 08:05] LABS: ANION GAP 17 mEq/L (8-16); CALCIUM 9.4 mg/dL (8.5-10.4); CARBON DIOXIDE 34 mEq/l (22-31); CHLORIDE 89 mEq/L (97-110); CREATININE 0.8 mg/dL (0.7-1.3); GLOMERULAR FILTRATION RATE > 60; GLUCOSE 166 mg/dL (70-100); POTASSIUM 3.9 mEq/L (3.5-5.2); SODIUM 140 mEq/L (134-144)
[2017-01-02] MEDS ORDERED: LORazepam 2 MG/ML INJ IVP ONE (08:08)
[2017-01-02 08:12] LABS: INR 1.17 (0.83-1.16); PROTIME(PATIENT) 14.9 SEC (12.0-15.0)
[2017-01-02 08:13] LABS: APTT 28.5 SEC (23.0-38.0)
[2017-01-02 08:14] LABS: PLATELET ESTIMATE ADEQUATE (ADEQ)
[2017-01-02 08:17] LABS: TROPONIN I 0.115 ng/mL (0.000-0.034)
[2017-01-02] MEDS ORDERED: methylPREDNISolone SOD SUCC 125 MG/2 ML VIAL ONE (08:55)
[2017-01-02] MEDS: methylPREDNISolone SOD SUCC 125 MG/2 ML VIAL IVP ONE ×2 (09:00)
[2017-01-02 09:05] LABS: PROCALCITONIN 0.43 ng/mL (0.02-0.10)
[2017-01-02 09:08] LABS: LACGHOST ORDER
[2017-01-02] MEDS ORDERED: ONDANSETRON DISINTEGRATING 4 MG TAB PO PRN (09:08)
[2017-01-02] MEDS ORDERED: ALBUTEROL 3 ML DEYVIAL IH PRN (09:08)
[2017-01-02] MEDS ORDERED: oxyCODONE IR 5 MG TAB PO PRN (09:08)
[2017-01-02] MEDS ORDERED: ACETAMINOPHEN 325 MG TAB PO PRN (09:08)
[2017-01-02] MEDS ORDERED: LORazepam 2 MG/ML INJ IVP PRN (09:08)
[2017-01-02 09:12] LABS: MAGNESIUM 1.3 mg/dL (1.6-2.3)
[2017-01-02] MEDS ORDERED: SODIUM CL NASAL 45 ML BTL NS PRN (09:19)
--- NOTE | 2017-01-02 09:27 | PDGENHP ---
History and Physical - Chief Complaint SOB - History of Present Illness 56 yo senior care patient with hx of COPD and chronic resp failure p/w acute on chronic resp failure x 2 days. He is typically on 6 L O2. Now requiring 15 L , increased WOB. Has not tolerated BiPAP in the ED CXR shows left sided pneumonia. He has been started on Levaquin. Sepsis alert was triggered and he has been started on high amounts of IVF. He has pedal edema and is on Lasix at home. His main complain is SOB and cant breath. He reports that he is a full code including intubation which is different than his MOST form Studies: -CXR personally reviewed: Left perihilar consolidation, no overt fluid overload -WBC: 29 -EKG: narrow complex tachycardia Denies fever, worsened pedal edema, palpitations, focal weakness, N/V/D. PMHx: COPD, Chronic resp failure 6L 24/7, Tobacco abuse disorder, Anemia, Depression, GERD, Hep C, Colon Ca, Hx of ETOH abuse (none currently), TBI, wheelchair bound PSHx: Colon resection, craniectomy at age 7 FmHx: cirrhosis Soc: lives in SNF, +daily cigarette use, prior ETOH History Information - Allergies/Home Medication List Allergies/Adverse Reactions: Penicillins Allergy (Verified 10/10/16 17:01) Home Medications: Fluticasone/Salmeter 250/50Mcg [Advair 250/50 (*)] 1 puffs IH BID 03/27/15 [ Last Taken 01/01/17] Furosemide [Lasix 20 MG (*)] 20 mg PO DAILY 03/27/15 [Last Taken 01/01/17] Omeprazole 20 mg PO DAILY 03/27/15 [Last Taken 01/01/17] Potassium Cl [Klor-Con 20 meq (*)] 20 meq PO DAILY 03/27/15 [Last Taken 01/01/17 ] Sodium Cl Nasal [[place] (*)] 1 spray NS Q2 PRN 03/27/15 [Last Taken Unknown ] Tiotropium Inhaler [Spiriva Handihaler] 18 mcg IH DAILY 03/27/15 [Last Taken ] Albuterol [Proventil Neb] 3 ml IH Q4 PRN 11/21/15 [Last Taken Unknown] Cholecalciferol Vit D3 [Vitamin D3 2000 units tab (OTC)] 6,000 units PO DAILY [Last Taken 01/01/17] Polyethylene Glycol 3350 [Miralax 17 gm (*)] 17 gm PO HS 11/21/15 [Last Taken ] Ibuprofen [Motrin (*)] 600 mg PO BID 01/02/17 [Last Taken 01/01/17] I have personally reviewed and updated: family history, medical history, social history, surgical history - Social History Smoking Status: Light smoker Review of Systems Review of Systems: ROS: 10pt was reviewed & negative except for what was stated in HPI & below Physical Exam Physical Exam: Temp Pulse Resp BP Pulse Ox 38.6 C H 132 H 28 H 111/77 92 01/02/17 07:36 01/02/17 09:09 01/02/17 09:09 01/02/17 09:09 01/02/17 09:09 O2 (L/minute) 92 Constitutional: uncomfortable Eyes: PERRL, EOMI Ears, Nose, Mouth, Throat: moist mucous membranes, hearing normal Cardiovascular: tachycardia, edema (trace LE), No irregularly irregular, No JVD Respiratory: reduced air movement, expiratory wheeze, other (increase work of breathing), No no respiratory distress Gastrointestinal: normoactive bowel sounds, soft, non-tender abdomen Skin: warm Neurologic: AAOx3 Psychiatric: interacting appropriately, not anxious, not encephalopathic Lab Data & Imaging Review 01/02/17 07:45 01/02/17 07:45 WBC 29.06 10^3/uL (3.80-9.50) H 01/02/17 07:45 RBC 4.06 10^6/uL (4.40-6.38) L 01/02/17 07:45 Hgb 12.5 g/dL (13.7-17.5) L 01/02/17 07:45 POC Hgb 14.6 gm/dL (13.7-17.5) 01/02/17 07:38 Hct 37.9 % (40.0-51.0) L 01/02/17 07:45 POC Hct 43 % (40-51) 01/02/17 07:38 MCV 93.3 fL (81.5-99.8) 01/02/17 07:45 MCH 30.8 pg (27.9-34.1) 01/02/17 07:45 MCHC 33.0 g/dL (32.4-36.7) 01/02/17 07:45 RDW 13.2 % (11.5-15.2) 01/02/17 07:45 Plt Count 300 10^3/uL (150-400) 01/02/17 07:45 MPV 9.3 fL (8.7-11.7) 01/02/17 07:45 Neut % (Auto) Not Reported 01/02/17 07:45 Lymph % (Auto) Not Reported 01/02/17 07:45 [place] % (Auto) Not Reported 01/02/17 07:45 Eos % (Auto) Not Reported 01/02/17 07:45 Baso % (Auto) Not Reported 01/02/17 07:45 Nucleat RBC Rel Count 0.0 % (0.0-0.2) 01/02/17 07:45 Absolute Neuts (auto) Not Reported 01/02/17 07:45 Absolute Lymphs (auto) Not Reported 01/02/17 07:45 Absolute Monos (auto) Not Reported 01/02/17 07:45 Absolute Eos (auto) Not Reported 01/02/17 07:45 Absolute Basos (auto) Not Reported 01/02/17 07:45 Absolute Nucleated RBC 0.00 10^3/uL (0-0.01) 01/02/17 07:45 Immature Gran % Not Reported 01/02/17 07:45 Seg Neutrophils % 65 % 01/02/17 07:45 Band Neutrophils % 15 % 01/02/17 07:45 Lymphocytes % 9 % 01/02/17 07:45 Monocytes % 11 % 01/02/17 07:45 Immature Gran # Not Reported 01/02/17 07:45 Absolute Seg Neuts 18.89 10^/uL (1.70-6.50) H 01/02/17 07:45 Absolute Band Neuts 4.36 10^3/uL (0.00-0.70) H 01/02/17 07:45 Absolute Lymphocytes 2.62 10^3/uL (1.00-3.00) 01/02/17 07:45 Absolute Monocytes 3.20 10^3/uL (0.30-0.80) H 01/02/17 07:45 RBC/WBC/PLT Morphology NORMAL (NORMAL) 01/02/17 07:45 Platelet Estimate ADEQUATE (ADEQ) 01/02/17 07:45 PT 14.9 SEC (12.0-15.0) 01/02/17 07:45 INR 1.17 (0.83-1.16) H 01/02/17 07:45 APTT 28.5 SEC (23.0-38.0) 01/02/17 07:45 VBG Lactic Acid 2.1 mmol/L (0.7-2.1) 01/02/17 08:08 POC Sodium 138 mEq/L (134-144) 01/02/17 07:38 Sodium 140 mEq/L (134-144) 01/02/17 07:45 POC Potassium 3.7 mEq/L (3.3-5.0) 01/02/17 07:38 Potassium 3.9 mEq/L (3.5-5.2) 01/02/17 07:45 POC Chloride 91 mEq/L (97-110) L 01/02/17 07:38 Chloride 89 mEq/L (97-110) L 01/02/17 07:45 Carbon Dioxide 34 mEq/l (22-31) H 01/02/17 07:45 Anion Gap 17 mEq/L (8-16) H 01/02/17 07:45 POC BUN 16 mg/dL (7-23) 01/02/17 07:38 BUN 16 mg/dL (7-23) 01/02/17 07:45 Creatinine 0.8 mg/dL (0.7-1.3) 01/02/17 07:45 POC Creatinine 0.9 mg/dL (0.7-1.3) 01/02/17 07:38 Estimated GFR > 60 01/02/17 07:45 Glucose 166 mg/dL (70-100) H 01/02/17 07:45 POC Glucose 172 mg/dL (70-100) H 01/02/17 07:38 Calcium 9.4 mg/dL (8.5-10.4) 01/02/17 07:45 Magnesium 1.3 mg/dL (1.6-2.3) L 01/02/17 08:05 Troponin I 0.115 ng/mL (0.000-0.034) H 01/02/17 07:45 Procalcitonin 0.43 ng/mL (0.02-0.10) H 01/02/17 08:05 Assessment & Plan Assessment: 56 yo male with hx of COPD and chronic resp failure on 6 L daily at baseline admitted for acute on chronic respiratory failure #Acute on chronic Respiratory failure #COPD exacerbation #Left sided pneumonia #?Sepsis by protocol, appropriate BP, afebrile #Indeterminate troponin, possibly demand ischemia #Tachycardia #Tobacco Abuse disorder Plan: -Admit to Step Down unit, may need ICU if worsens -BiPAP if he can tolerate, have d/w team -Stat Solumedrol -scheduled nebs -Cont Levaquin -Await cultures, BCx, viral Cx's -check sputum culture -Slow down IVF, he has signs of overload, BP is ok. He is tachy due to lung etiology -TTE, serial trops, repeat EKG, telemetry -He is a full code. If needed he wants intubation. -Lovenox for DVT proph total critical care time spent on care of this patient is 80 minutes
[2017-01-02] MEDS ORDERED: PROTOCOL MAGNESIUM 1 DOSE IV PRN (09:35)
[2017-01-02] MEDS ORDERED: MAGNESIUM SULF 2 GM/WATER 50 ML IV ONE (09:35)
[2017-01-02] MEDS ORDERED: PROTOCOL POTASSIUM 1 DOSE MISC PRN ×2 (09:35)
--- NOTE | 2017-01-02 09:54 | PDMN ---
Medical Necessity Medical necessity: C/M review: est. > 2 MN for eval and TX of acute on chronic respiratory failure, COPD exacerbation, left sided pneumonia, questionable sepsis, indeterminate troponin, tachycardia requiring planned echocardiogram, ongoing IV Levaquin, IV steroids, IV fluids, cardiac monitoring, pulse oximetry , increased O2 requirement to 15L/min, Duonebs, acute inpt PT in SDU, comorbid tobacco use disorder, COPD, chronic respiratory failure with O2 6L/min at baseline, anemia, depression, patient is wheelchair bound, hx colon cancer, hepatitis C, traumatic brain injury, hx alcohol abuse (none currently) per H/P.
[2017-01-02] MEDS: IPRATROPIUM/ALBUTEROL 3 ML DEYVIAL IH SCH ×3 (11:45→20:13)
[2017-01-02] MEDS: methylPREDNISolone SOD SUCC 125 MG/2 ML VIAL IVP SCH ×2 (11:55→17:41)
[2017-01-02] MEDS: NICOTINE 14 MG/24 HR PATCH TD SCH (11:56)
[2017-01-02 12:31] LABS: CALCULATED OXYGEN SATURATION 94 % (92-95); O2 CONCENTRATIION 60 % (0-100)
--- NOTE | 2017-01-02 12:40 | ASMTCMCOM ---
CM Note CM Note Notes: Pt is a resident of [place], per RN he is "up and about in wheelchair" , "can take care of self" History of etoh dependence, get 6oz alcohol 2 times a day. DC needs unclear, LUISA w/f Date Signed: 01/02/2017 12:40 PM Electronically Signed By:Laura Colon RN
--- NOTE | 2017-01-02 12:42 | ECHO ---
[email or web address] [address] [address] Main: [phone] Fax: Transthoracic Echocardiogram Name: PAULETTE HERRON MR#: [id number] Study Date: 01/02/2017 Study Time: 11:06 AM Date of : 1960 Age: 56 year(s) Height: 172.7 cm (68 in.) Weight: 73.03 kg (161 lb.) BSA: 1.86 m2 Gender: Male Examination: Echo Indication: hx of CHF Image Quality: Technically Difficult Contrast: Requested by: Henrik Martinez BP: 95 mmHg/73 mmHg Heart Rate: Rhythm: Tachycardia Indication: hx of CHF Procedure Staff Freight Manager: Marlin Lorenzo Reading Physician: Jeison Larson Requesting Provider: Conclusions: Concentric LV hypertrophy. Grossly normal LV size with mild to moderately reduced systolic function. Abnormal septal motion etiology unclear, could be underlying CAD or due to RV pressure overload. LVEF 35-40%. Moderately dilated right ventricle. Moderately reduced RV function. Mild mitral valve regurgitation is present. Trivial tricuspid valve regurgitation. Pulmonary artery pressure is not obtained due to inadequate TR jet. No pericardial effusion. Measurements: Chambers Valvular Assessment AV/MV Valvular Assessment TV/PV Normal Normal Normal Name Value Range Name Value Range Name Value Range Ao Jayshree (MM): 3.9 cm (2.2 cm-3.7 PV Vmax: 0.54 m/s (0.6 m/s-0.9 cm) m/s) IVSd (2D): 1.2 cm (0.6 cm-1.1 PV PGmax: 1 mmHg ( - ) cm) LVDd (2D): 4.5 cm (4.2 cm-5.9 cm) LVDs (2D): 3.6 cm (2.1 cm-4 cm) LVPWd (2D): 1.1 cm (0.6 cm-1 cm) LVEF (2D): 39 (>=54 %) RVDd(2D): 4.8 cm (1.9 cm-3.8 cmmm) Continued Measurements: Patient: PAULETTE HERRON Study Date: 01/02/2017 Page 1 of 2 11:06 AM Findings: Left Ventricle: Concentric LV hypertrophy. Grossly normal LV size with mild to moderately reduced systolic function. Abnormal septal motion etiology unclear, could be underlying CAD or due to RV pressure overload. Right Ventricle: Moderately dilated right ventricle. Moderately reduced RV function. Left Atrium: Grossly normal LA size. Right Atrium: Grossly normal RA size. Mitral Valve: Mitral valve not well visualized. Mild mitral valve regurgitation is present. Aortic Valve: The aortic valve is normal in appearance. There is no aortic valve regurgitation. Tricuspid Valve: The tricuspid valve appears normal. Trivial tricuspid valve regurgitation. Pulmonary artery pressure is not obtained due to inadequate TR jet. Pulmonic Valve: Pulmonary valve not well visualized. Aorta: Normal size aortic root measuring 3.9 cm. IVC: The IVC is normal sized. Pericardium: No pericardial effusion. There is pericardial fat. (No Signature Object) Patient: PAULETTE HERRON Study Date: 01/02/2017 Page 2 of 2 11:06 AM [id number]
[2017-01-02 14:23] LABS: GLUCOSE 185 mg/dL (70-100)
[2017-01-02 18:19] LABS: MAGNESIUM 2.4 mg/dL (1.6-2.3)
[2017-01-02 18:20] LABS: GLUCOSE 178 mg/dL (70-100)
[2017-01-02 18:31] LABS: TROPONIN I 0.184 ng/mL (0.000-0.034)
--- NOTE | 2017-01-02 19:33 | GCON ---
[f rep st] CONSULTATION PULMONARY/CRITICAL CARE CONSULTATION DATE OF CONSULTATION: 01/02/2017 REASON FOR CONSULTATION: Pneumonia, COPD. HISTORY: The patient is a 56-year-old resident of [place]. He has severe chronic obstructive pul monary disease requiring 6 L of oxygen. Prior to this admission, he was do not intubate, do not resu scitate, per his previous wishes. He presented to the emergency department with increasing shortness of breath for 2 days. He was found to be hypoxemic and placed on BiPAP in the emergency department. Chest x-ray showed a relatively extensive left-sided pneumonia. He was started on Levaquin, given bronchodilator treatment, and started on Solu-Medrol. He was admitted to the intensive care unit on BiPAP. PAST MEDICAL HISTORY: Remarkable for COPD as outlined above. He continues to smoke at least a quart er pack of cigarettes per day. He is on 6 L of oxygen chronically. There is a history of colon canc er and previous colostomy, alcohol abuse with pancreatitis, esophagitis with esophageal stricture. Onesimo dash has fluid retention presumably secondary to right heart failure and is on 20 mg of Lasix per day. There is a history of gastroesophageal reflux, for which he takes omeprazole. Inhaled therapies include albuterol, Advair 250/50, and Spiriva. SOCIAL HISTORY: He has no family. He lives at [place]. Alcohol and tobacco are as outlined abocarlos alberto hardy. He continues to smoke, and I believe does get alcohol at [place]. 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 FAMILY HISTORY: Noncontributory. REVIEW OF SYSTEMS: A 10-point review of systems is negative except as mentioned above. PHYSICAL EXAMINATION: GENERAL: Reveals a gentleman who appears relatively comfortable, on BiPAP, in the intensive care unit. He is alert, answers questions appropriately. VITAL SIGNS: Blood pressur e is 110/80, heart rate 110 was sinus tachycardia on the monitor. Respiratory rate is 24. BiPAP is in place at 40% with saturations in the mid 90s. He is afebrile. HEENT: Unremarkable for lymphaden opathy or thyromegaly. NECK: Jugular venous pressure does appear to be elevated, however, somewhat difficult to assess. CHEST: Reveals decreased breath sounds bilaterally with a prolonged expiratory phase and some scattered wheezes. Rales are present on the left with some bronchial changes. With cough, there is some central congestion/rhonchi. HEART: Tachycardic. Systolic murmur is present. ABDOMEN: Soft and nontender, mildly distended. A colostomy is in place. He has no Cruz catheter. EXTREMITIES: Remarkable for 1+ edema. NEUROLOGIC: Grossly nonfocal. Sensation is intact. Cognit ion appears to be intact. DATABASE: Chest x-ray shows relatively extensive left perihilar infiltrate. LABORATORY DATA: White blood cell count is 29,000, hematocrit 37.9. PT and PTT on admission were no rmal. Arterial blood gas on BiPAP showed a pH of 7.29, pCO2 of 75, and pO2 of 90. Venous lactate wa s 7.1. Sodium is 140, potassium 3.9, CO2 of 34 with an anion gap of 17. BUN is 16 with a creatinine 0.8, glucose 166. Troponin is 0.11, magnesium 1.3. ASSESSMENT: 1. Left-sided pneumonia. This is relatively extensive in a perihilar distribution. He denies swall owing difficulties or known aspiration. Aspiration pneumonia seems, thus, less likely. 2. Severe underlying chronic obstructive pulmonary disease with associated hypoxemia. 3. Acute respiratory failure secondary to #1 and #2. He is requiring BiPAP support. Hopefully, thi s will be adequate to prevent further respiratory compromise and the need for intubation/mechanical v entilation. 4. Congestive heart failure. He likely does have pulmonary hypertension. Echo shows a dilated righ t ventricle and decreased right ventricular function; however, right ventricular systolic pressures c ould not be estimated. There is evidence of a left ventricular cardiomyopathy, as well, with estimat ed ejection fraction of 40%. S. 5. Severe sepsis. Lactate is normal; however, blood pressures are borderline. 6. History of carcinoma of the colon, colostomy. 7. History of alcohol and tobacco abuse. PLAN AND RECOMMENDATIONS: The patient will be kept in the intensive care unit. BiPAP will be used a s needed. Levaquin will be continued, along with bronchodilator therapy and steroids. X-ray and lab oratory will be followed. Pantoprazole and enoxaparin will be given. Further plans and recommendations will be made based on his progress over the next 12-24 hours. /[id number]/MODL
[2017-01-02] MEDS: VODKA 50 ML BOTTLE PO SCH (20:25)
[2017-01-02] MEDS: POLYETHYLENE GLYCOL 3350 17 GM PKT PO SCH (22:50)
[2017-01-03] MEDS: methylPREDNISolone SOD SUCC 125 MG/2 ML VIAL IVP SCH ×5 (00:39→23:13)
[2017-01-03] MEDS: IPRATROPIUM/ALBUTEROL 3 ML DEYVIAL IH SCH ×4 (05:46→22:06)
--- NOTE | 2017-01-03 05:52 | CPEKG ---
Heart Rate: 83 RR Interval: 723 P-R Interval: 156 QRSD Interval: 88 QT Interval: 420 QTC Interval: 494 P [place]: 18 QRS [place]: -29 T Wave [place]: 59 EKG Severity - BORDERLINE ECG - EKG Impression: SINUS RHYTHM EKG Impression: BORDERLINE LEFT AXIS DEVIATION EKG Impression: LOW VOLTAGE IN FRONTAL LEADS EKG Impression: BORDERLINE PROLONGED QT INTERVAL EKG Impression: HEART RATES HAVE SLOWED Electronically Signed By: Tristian Cornejo 03-Jan-2017 08:36:15
[2017-01-03 06:29] LABS: % IMMATURE GRANULYOCYTES 0.9 % (0.0-1.1); ABSOLUTE IMMATURE GRANULOCYTES 0.08 10^3/uL (0.00-0.10); ADD DIFF? NO; ADD MORPH? NO; ADD SCAN? YES; ATYPICAL LYMPHOCYTE FLAG 10 (0-99); FRAGMENT RBC FLAG 0 (0-99); HEMOGLOBIN 15.2 g/dL (13.7-17.5); LIPEMIA HEMOLYSIS FLAG 80 (0-99); MEAN CELL HEMOGLOBIN 30.5 pg (27.9-34.1); MEAN CELL VOLUME 92.2 fL (81.5-99.8); MEAN PLATELET VOLUME 9.3 fL (8.7-11.7); PLATELET CLUMPS FLAG 0 (0-99); PLATELET COUNT 145 10^3/uL (150-400); RED BLOOD CELL COUNT 4.99 10^6/uL (4.40-6.38); RED CELL DISTRIBUTION WIDTH 13.3 % (11.5-15.2)
[2017-01-03 06:31] LABS: LEFT SHIFT FLG 110 (0-99)
[2017-01-03 06:44] LABS: CALCULATED OXYGEN SATURATION 96 % (92-95); O2 CONCENTRATIION 40 % (0-100)
[2017-01-03 07:00] LABS: SCAN NEGATIVE
[2017-01-03 07:09] LABS: ANION GAP 9 mEq/L (8-16); CALCIUM 8.5 mg/dL (8.5-10.4); CARBON DIOXIDE 35 mEq/l (22-31); CHLORIDE 91 mEq/L (97-110); CREATININE 0.5 mg/dL (0.7-1.3); GLOMERULAR FILTRATION RATE > 60; GLUCOSE 186 mg/dL (70-100); MAGNESIUM 2.3 mg/dL (1.6-2.3); POTASSIUM 3.7 mEq/L (3.5-5.2); SODIUM 135 mEq/L (134-144)
[2017-01-03 07:21] LABS: TROPONIN I 0.094 ng/mL (0.000-0.034)
[2017-01-03] MEDS ORDERED: NON-FORMULARY NEW DRUG (Omeprazole [Omeprazole] 20 MG) PO SCH (09:00)
--- NOTE | 2017-01-03 09:20 | HOSPPROG ---
Hospitalist Progress Note Assessment/Plan: 56 yo male with hx of COPD and chronic resp failure on 6 L daily at baseline admitted for acute on chronic respiratory failure, sepsis, and left sided pneumonia resp status improving BP improving He has a hx of significant daily ETOH and is in WD Viral Cx negative #Acute on chronic Respiratory failure #COPD exacerbation #Left sided pneumonia #Sepsis #Indeterminate troponin, possibly demand ischemia, trending down #Tachycardia, resolving #Tobacco Abuse disorder #Acute ETOH WD Plan: -Appreciate Pulmonology reccs -cont Steroids, taper per pulm -cont Levaquin -BiPAP PRN -scheduled nebs -Await cultures, BCx -Await sputum culture -BP better, cont NS at 75 ml /hr but pending clinical progress today may be able to stop given hx of of CHF -Scheduled Vodka. He remains symptomatic. Will schedule Librium, can adjust as needed. PRN Ativan -He is a full code. This was confirmed on admission and is a change from his previous documented wishes -Lovenox for DVT proph total critical care time spent on care of this patient is 40 minutes Subjective: Feels better from a resp standpoint. He is tremulous. Says the Vodka isnt enough. Objective: Vital Signs Temp Pulse Resp BP Pulse Ox 36.6 C 98 20 121/74 H 93 01/03/17 07:45 01/03/17 07:45 01/03/17 07:45 01/03/17 07:45 01/03/17 07:45 Microbiology 01/02/17 14:20 Respiratory Panel (PCR) - Final Nasal, Sinus - Swab No Organism Detected Laboratory Results 01/03/17 06:00 01/03/17 06:00 01/02/17 01/03/17 01/04/17 05:59 05:59 05:59 Intake Total 2870 Output Total 860 Balance 2009 PT 14.9 SEC (12.0-15.0) 01/02/17 07:45 INR 1.17 (0.83-1.16) H 01/02/17 07:45 - Physical Exam Constitutional: no apparent distress Eyes: PERRL, EOMI Ears, Nose, Mouth, Throat: moist mucous membranes, hearing normal Cardiovascular: regular rate and rhythym Respiratory: reduced air movement, expiratory wheeze Gastrointestinal: normoactive bowel sounds, soft, non-tender abdomen Skin: warm Neurologic: AAOx3 Psychiatric: interacting appropriately, not encephalopathic, anxious ICD10 Worksheet Patient Problems: Problems Problem Status Onset Pneumonia Acute Respiratory failure Acute Severe sepsis Acute COPD (chronic obstructive pulmonary disease) Acute COPD exacerbation Acute Chest pain Acute Chronic Diseaes Mgmt/Transitional Care Acute Dyspnea Acute Hypoxemia Acute
[2017-01-03] MEDS: CHOLECALCIFEROL VIT D3 2,000 UNITS TAB/CAP PO SCH (10:40)
[2017-01-03] MEDS: ENOXAPARIN 40 MG/0.4 ML SYR SC SCH (10:40)
[2017-01-03] MEDS: PANTOPRAZOLE SODIUM 40 MG TAB PO SCH (10:41)
[2017-01-03] MEDS: POTASSIUM CL 20 MEQ TAB PO SCH (10:41)
[2017-01-03] MEDS: NICOTINE 14 MG/24 HR PATCH TD SCH (10:41)
[2017-01-03] MEDS: chlordiazePOXIDE 25 MG CAP PO SCH ×2 (13:12→20:25)
--- NOTE | 2017-01-03 14:02 | PDINTPN ---
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 He required BiPAP support initially. He was do not intubate, do not resuscitate per advanced directive signed in 2014. In the emergency department on this admission he rescinded those advanced directives. He has no family by his report, unclear re: Medical POA. Severe underlying COPD associated with hypoxemia. On chronic oxygen at 6 L. Continues to smoke. Community-acquired pneumonia. Chest x-ray slightly worse today but clinically stable. Sputum culture pending. Respiratory panel negative. Blood cultures negative at 24 hours. On Levaquin. Afebrile now, over 38 on admission. Metabolic: No issues identified. On potassium replacement protocol. CO2 chronically elevated. DVT prophylaxis: Enoxaparin. GI prophylaxis: Pantoprazole Plan: Continue care on step-down. With continue Levaquin, IV Solu-Medrol, bronchodilator therapies. Continue oxygen as needed to maintain saturations approximately 90%. Can be back on BiPAP if needed. Follow laboratory and x- ray. Continue present medications otherwise. 30 minutes of critical care time spent directly with the patient. Discussed with respiratory therapy, nursing, and the ICU multi disciplinary team. Subjective: Doing okay, feeling somewhat better. Remains short of breath compared to his baseline. Off BiPAP. Denies pain. Continues to want to be full cor Objective: Vital Signs Temp Pulse Resp BP Pulse Ox 36.5 C 101 H 24 H 118/78 94 01/03/17 12:00 01/03/17 12:00 01/03/17 12:00 01/03/17 12:00 01/03/17 12:00 Microbiology 01/02/17 14:20 Respiratory Panel (PCR) - Final Nasal, Sinus - Swab No Organism Detected Laboratory Results 01/03/17 06:00 01/02/17 01/03/17 01/04/17 05:59 05:59 05:59 Intake Total 2870 Output Total 860 200 Balance 2009 - PT 14.9 SEC (12.0-15.0) 01/02/17 07:45 INR 1.17 (0.83-1.16) H 01/02/17 07:45 Laboratory Tests 01/03/17 01/03/17 06:00 06:29 POC pH 7.44 POC pCO2 51 H POC pO2 84 H POC O2 Sat (Calc) 96 H POC FiO2 40 Calcium 8.5 Magnesium 2.3 Troponin I 0.094 H TSH 0.432 L CXR: Increased markings in the left lower lobe below his area of perihilar consolidation. Physical Exam - Physical Exam General Appearance: alert, no apparent distress, obese, other (OxyMask in place) EENT: PERRL/EOMI, other (OxyMask) Neck: normal inspection (No obvious jugular venous distension), No lymphadenopathy (R), No lymphadenopathy (L) Respiratory: decreased breath sounds (Bilaterally), rales (At lateral left base) , wheezing (Few scattered wheezes), prolonged expiration, No rhonchi Cardiac/Chest: regular rate, rhythm, tachycardia (At times, sinus, low 100s), other (Distant heart tones) Abdomen: distended, other (Colostomy, with only a small amount of stool in the bag), No normal bowel sounds (Decreased, present), No non-tender (Mild tenderness present), No soft Male Genitalia: other (No Cruz catheter, using urinal at times. Is and Os difficult to assess) Skin: normal color, warm/dry Extremities: pedal edema (Trace) Neuro/Psych: no motor/sensory deficits (Moves all extremities weakly and equally. Wheelchair-bound at [place]), No cognition abnormalities (Answers questions appropriately. Wants to remain full cor) ICD10 Worksheet Patient Problems: Problems Problem Status Onset Pneumonia Acute Respiratory failure Acute Severe sepsis Acute COPD (chronic obstructive pulmonary disease) Acute COPD exacerbation Acute Chest pain Acute Chronic Diseaes Mgmt/Transitional Care Acute Dyspnea Acute Hypoxemia Acute
[2017-01-03 14:09] LABS: POTASSIUM 3.7 mEq/L (3.5-5.2)
[2017-01-03] MEDS: VODKA 50 ML BOTTLE PO SCH ×2 (16:53→20:25)
[2017-01-03] MEDS: ONDANSETRON 4 MG/2 ML VIAL IVP PRN ×2 (17:34→20:28)
[2017-01-03] MEDS ORDERED: ALTEPLASE 2 MG VIAL IVP PRN (17:41)
[2017-01-03] MEDS ORDERED: POTASSIUM Cl (KCl) 50 ML IV ONE (17:54)
[2017-01-03 18:59] LABS: POTASSIUM 3.9 mEq/L (3.5-5.2)
[2017-01-03] MEDS: POLYETHYLENE GLYCOL 3350 17 GM PKT PO SCH (20:25)
[2017-01-03] MEDS: LORazepam 2 MG/ML INJ IV PRN (23:14)
[2017-01-04 04:19] LABS: ADD MORPH? NO; ATYPICAL LYMPHOCYTE FLAG 0 (0-99); FRAGMENT RBC FLAG 0 (0-99); HEMATOCRIT 32.7 % (40.0-51.0); HEMOGLOBIN 10.6 g/dL (13.7-17.5); LIPEMIA HEMOLYSIS FLAG 80 (0-99); MEAN CELL HEMOGLOBIN 30.3 pg (27.9-34.1); MEAN CELL HEMOGLOBIN CONCENTR. 32.4 g/dL (32.4-36.7); MEAN CELL VOLUME 93.4 fL (81.5-99.8); MEAN PLATELET VOLUME 9.5 fL (8.7-11.7); PLATELET CLUMPS FLAG 0 (0-99); PLATELET COUNT 217 10^3/uL (150-400); RED CELL DISTRIBUTION WIDTH 13.6 % (11.5-15.2)
[2017-01-04 04:22] LABS: LEFT SHIFT FLG 100 (0-99)
[2017-01-04 04:23] LABS: ADD DIFF? YES; ADD SCAN? NO
[2017-01-04 04:41] LABS: ANION GAP 9 mEq/L (8-16); CALCIUM 8.8 mg/dL (8.5-10.4); CARBON DIOXIDE 39 mEq/l (22-31); CHLORIDE 91 mEq/L (97-110); CREATININE 0.6 mg/dL (0.7-1.3); GLOMERULAR FILTRATION RATE > 60; GLUCOSE 229 mg/dL (70-100); MAGNESIUM 2.4 mg/dL (1.6-2.3); POTASSIUM 4.2 mEq/L (3.5-5.2); SODIUM 139 mEq/L (134-144)
[2017-01-04 04:42] LABS: PLATELET ESTIMATE ADEQUATE (ADEQ); STOMATOCYTES 1+
[2017-01-04] MEDS: IPRATROPIUM/ALBUTEROL 3 ML DEYVIAL IH SCH ×2 (04:51→11:48)
[2017-01-04] MEDS: methylPREDNISolone SOD SUCC 125 MG/2 ML VIAL IVP SCH ×4 (05:12→23:22)
--- NOTE | 2017-01-04 06:25 | HOSPPROG ---
Hospitalist Progress Note Assessment/Plan: Cross-cover: Called by RN about patient having rising O2 req from 8L to 15L. Upon evaluation patient using accessory muscles and breathing through pursed lips with audible obstruction on expiration but no clear wheezing. Will give neb and get CXR, ABG, and place patient on BIPAP. Objective: Vital Signs Temp Pulse Resp BP Pulse Ox 36.4 C 117 H 25 H 145/80 H 93 01/04/17 03:47 01/04/17 05:15 01/04/17 05:15 01/04/17 03:47 01/04/17 05:15 Microbiology 01/02/17 Unknown - Final Unspecified Laboratory Results 01/04/17 04:05 01/04/17 04:05 01/03/17 01/04/17 01/05/17 05:59 05:59 05:59 Intake Total 2870 3223 Output Total 860 1545 Balance 20098 PT 14.9 SEC (12.0-15.0) 01/02/17 07:45 INR 1.17 (0.83-1.16) H 01/02/17 07:45 ICD10 Worksheet Patient Problems: Problems Problem Status Onset Pneumonia Acute Respiratory failure Acute Severe sepsis Acute COPD (chronic obstructive pulmonary disease) Acute COPD exacerbation Acute Chest pain Acute Chronic Diseaes Mgmt/Transitional Care Acute Dyspnea Acute Hypoxemia Acute
[2017-01-04] MEDS: LORazepam 2 MG/ML INJ IV PRN ×2 (06:37→11:24)
[2017-01-04] MEDS ORDERED: LORazepam 2 MG/ML INJ IVP ONE (06:45)
[2017-01-04] MEDS ORDERED: LABETALOL HCL 5 MG/ML 20 ML MDV IVP ONE (06:45)
[2017-01-04] MEDS ORDERED: LABETALOL HCL 5 MG/ML 20 ML MDV ONE (06:47)
[2017-01-04] MEDS ORDERED: FUROSEMIDE 20 MG/2 ML VIAL IVP ONE (07:27)
[2017-01-04] MEDS ORDERED: MIDAZOLAM 2 MG/2 ML VIAL ONE (07:37)
[2017-01-04] MEDS ORDERED: PROPOFOL/EMULSION 1,000 MG/100 ML BOTTLE IV ONE ×2 (07:45→19:11)
[2017-01-04] MEDS ORDERED: PROPOFOL/EMULSION 100 ML IV SCH (08:00)
[2017-01-04] MEDS ORDERED: ETOMIDATE 40 MG/20 ML INJ ONE (08:10)
[2017-01-04] MEDS ORDERED: MIDAZOLAM 2 MG/2 ML VIAL IVP ONE (08:30)
[2017-01-04] MEDS ORDERED: ETOMIDATE 40 MG/20 ML INJ IV ONE (08:30)
--- NOTE | 2017-01-04 09:14 | HOSPPROG ---
Hospitalist Progress Note Assessment/Plan: #Acute on chronic hypercarbic and hypoxemic respiratory failure in setting of COPD exac and PNA - urgently intubated this am, CXR worsening, wbc's up -cont nebs, steroids -wean vent as able -abg now post-intubation -atbx as below #Sepsis secondary to PNA - Afebrile, wbc's 29 --> 16. BCx's NGTD. Sputum Cx neg. -cont levaquin, clindamycin added for anaerobic coverage, ?aspiration -send pneumococcal and legionella Ags #Abdominal distention - Unclear if he has underlying alcohol induced liver disease. -check LFT's -check portable KUB - ileus vs partial SBO. -NG tube in place, NPO #Indeterminate troponin, possibly demand ischemia, trending down #Tachycardia - sinus, ?w/d, improved with intubation #Hyperglycemia - bg >220 this am. -send a1c -q6h bg while NPO and low dose SSI #Acute ETOH WD - Had been receiving po vodka, now intubated. -change to Precedex with scheduled Ativan #Low TSH - send free T3, T4. #Full code #Dispo - cont inpt/ICU Subjective: Pt intubated, sedated. Urgently intubated this am. No fevers. Was getting vodka to prevent w/d, now NPO. Objective: Vital Signs Temp Pulse Resp BP Pulse Ox 36.4 C 125 H 31 H 165/79 H 95 01/04/17 03:47 01/04/17 07:50 01/04/17 06:52 01/04/17 06:58 01/04/17 07:50 Microbiology 01/02/17 Unknown - Final Unspecified Laboratory Results 01/04/17 04:05 01/04/17 04:05 01/03/17 01/04/17 01/05/17 05:59 05:59 05:59 Intake Total 2870 3223 Output Total 860 1545 2009 1678 PT 14.9 SEC (12.0-15.0) 01/02/17 07:45 INR 1.17 (0.83-1.16) H 01/02/17 07:45 - Physical Exam Constitutional: no apparent distress Eyes: PERRL Ears, Nose, Mouth, Throat: moist mucous membranes Cardiovascular: regular rate and rhythym Respiratory: reduced air movement, inspiratory crackles Gastrointestinal: normoactive bowel sounds, distension Skin: warm Psychiatric: other (sedated) ICD10 Worksheet Patient Problems: Problems Problem Status Onset Pneumonia Acute Respiratory failure Acute Severe sepsis Acute COPD (chronic obstructive pulmonary disease) Acute COPD exacerbation Acute Chest pain Acute Chronic Diseaes Mgmt/Transitional Care Acute Dyspnea Acute Hypoxemia Acute
[2017-01-04] MEDS: FAMOTIDINE 20 MG/NACL 50 ML IV SCH ×2 (10:21→20:55)
[2017-01-04] MEDS: NICOTINE 14 MG/24 HR PATCH TD SCH (10:22)
[2017-01-04] MEDS: ENOXAPARIN 40 MG/0.4 ML SYR SC SCH (10:22)
[2017-01-04] MEDS: CLINDAMYCIN 600 MG/DEXTROSE 50 ML IV SCH ×3 (10:27→21:40)
[2017-01-04] MEDS: PANTOPRAZOLE SODIUM 40 MG TAB PO SCH (11:26)
[2017-01-04] MEDS: POTASSIUM CL 20 MEQ TAB PO SCH (11:26)
[2017-01-04] MEDS: CHOLECALCIFEROL VIT D3 2,000 UNITS TAB/CAP PO SCH (11:27)
[2017-01-04] MEDS: chlordiazePOXIDE 25 MG CAP PO SCH (11:27)
[2017-01-04] MEDS ORDERED: DEXMEDETOMIDINE HCL 400 MCG in NS 100 ML IV SCH (11:30)
[2017-01-04 11:32] LABS: BICARBONATE 36 mEq/L (22-26)
[2017-01-04 11:43] LABS: BASE EXCESS 5.9 mEq/L (-2.5-2.5); MEASURED OXYGEN SATURATION 98 % (92-95); PO2 149 mmHg (65-75); TCO2 38 mEq/L (23-27)
[2017-01-04 11:50] LABS: ASSIST CONTROL YES; O2 CONCENTRATIION 100 % (0-100); P/F RATIO 149 RATIO
[2017-01-04 11:55] LABS: PCO2 87 mmHg (34-38)
[2017-01-04] MEDS ORDERED: DEXMEDETOMIDINE IN 0.9 % NACL 100 ML IV SCH (12:00)
[2017-01-04] MEDS: LORazepam 2 MG/ML INJ IVP SCH ×2 (12:40→19:14)
--- NOTE | 2017-01-04 13:26 | PDINTPN ---
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 He was initially listed as DNR but changed his mind during this admission. Initial therapy included levaquin, but his o2 requirement was growing and he was eventually treated with bipap the night of 01/03. However, at my initial eval he was markedly tachypnic and unable to answer questions, necessitating emergent intubation. His history also includes significant ETOH, for which he was getting scheduled Vodka and Librium. He is on chronic O2 at 6 lpm, but admission labs suggests chronic hypoxemia (elevated hct); and has CHF with an EF of only 35-40% on 01/02/17. His CXR this AM prior to ETT looked similar in distribution but more consolidated. * Acute respiratory failure with hypoxemia and hypercapnia- 2/2 PNA with elevated procalcitonin. Although the wbc dropped dramatically, I agree with coverage for anaerobes so changed to clinda this am after discussion with hospitalist. Send urinary antigens as well; respiratory viral panel negative. ABG post intubation shows severe ly elevated CO2 and adjusted appropriately- repeat ABG pending. Continue deep sedation and vent support. Titrate FiO2 as tolerated. Intubation dictated separately, but easy and no complications. * ETOH- with wd? will assume so for now. Change sedation from propofol to precedex and prn Ativan * COPD by history- use albuterol/atrovent QID while on vent. On solumedrol 60 q6 - will likely taper tomorrow. * CHF- he looked volume overloaded on paper so initially agreed to lasix, but drop in BP post ETT precludes diuresis at this time. BNP was 742, so not too high. Observe critical care time 75 minutes excluding procedures for patient with severe illness and MOF. PE reflects time of eval (pre-ETT) 01/04/17 13:26 Subjective: patient in severe respiratory distress at time of my evaluation at 0800 Objective: Vital Signs Temp Pulse Resp BP Pulse Ox 38.1 C 114 H 25 H 108/75 88 L 01/04/17 12:00 01/04/17 12:00 01/04/17 12:00 01/04/17 12:00 01/04/17 12:00 Microbiology 01/02/17 Unknown - Final Unspecified Laboratory Results 01/04/17 04:05 01/03/17 01/04/17 01/05/17 05:59 05:59 05:59 Intake Total 2870 3223 Output Total 860 1545 Balance 2009 1677 PT 14.9 SEC (12.0-15.0) 01/02/17 07:45 INR 1.17 (0.83-1.16) H 01/02/17 07:45 Physical Exam - Physical Exam General Appearance: obtunded, severe distress, obese EENT: PERRL/EOMI Neck: supple Respiratory: respiratory distress, accessory muscle use, decreased breath sounds , wheezing Cardiac/Chest: regular rate, rhythm, No edema Abdomen: non-tender, distended, No organomegaly, No rigid Skin: normal color, No warm/dry, No cyanosis Lymphatic: no adenopathy Extremities: No pedal edema Neuro/Psych: cognition abnormalities, No abnormal nurses' registry director II-XII ICD10 Worksheet Patient Problems: Problems Problem Status Onset Pneumonia Acute Respiratory failure Acute Severe sepsis Acute COPD (chronic obstructive pulmonary disease) Acute COPD exacerbation Acute Chest pain Acute Chronic Diseaes Mgmt/Transitional Care Acute Dyspnea Acute Hypoxemia Acute
[2017-01-04 13:41] LABS: ALANINE AMINOTRANSFERASE 43 IU/L (21-72); ALBUMIN 2.6 g/dL (3.5-5.0); ALKALINE PHOSPHATASE 66 IU/L (38-126); ASPARTATE AMINOTRANSFERASE 31 IU/L (17-59); BILIRUBIN,TOTAL 0.5 mg/dL (0.1-1.4); BILIRUBIN-CONJUGATED 0.4 mg/dL (0.0-0.5); BILIRUBIN-UNCONJUGATED 0.1 mg/dL (0.0-1.1); POTASSIUM 4.3 mEq/L (3.5-5.2); TOTAL PROTEIN 5.1 g/dL (6.3-8.2)
[2017-01-04] MEDS: CHLORHEXIDINE GLUCONATE 15 ML UDL PO SCH ×2 (15:27→20:56)
[2017-01-04 15:34] LABS: CALCULATED OXYGEN SATURATION 83 % (92-95); O2 CONCENTRATIION 70 % (0-100)
--- NOTE | 2017-01-04 16:01 | ASMTCMCOM ---
CM Note CM Note Notes: Lala Hester contacted to locate possible family members. Lala hester reports that he is his own decision maker and that no family members were listed in his record. Patient's MOST form states that he wanted "limited interventions" when asked he wanted to be intubated he reported that he did, so patient now on the vent. Date Signed: 01/04/2017 04:01 PM Electronically Signed By:Gerri Graham LCSW
[2017-01-04] MEDS: ALBUTEROL 200 PUFFS/18 GM MDI IH SCH ×3 (16:30→23:57)
[2017-01-04] MEDS ORDERED: D50W 25 GM/50 ML SYR IVP PRN (17:16)
[2017-01-04] MEDS ORDERED: ALBUMIN 25% 100 ML SOLN IV ONE (18:47)
[2017-01-04] MEDS ORDERED: NOREPINEPHRINE/NS 4 MG/500 ML BAG IV ONE (18:48)
[2017-01-04] MEDS ORDERED: ALBUMIN 25% 100 ML IV ONE (19:00)
[2017-01-04] MEDS ORDERED: NOREPINEPHRINE/NS 500 ML IV SCH (19:00)
[2017-01-04] MEDS: INSULIN LISPRO 100 UNIT/ML SC SCH (19:03)
[2017-01-04] MEDS ORDERED: fentanYL/NACL/100 ML BAG IV ONE (19:15)
[2017-01-04] MEDS: PROPOFOL/EMULSION 100 ML IV SCH (19:33)
[2017-01-04 19:39] LABS: HEMOGLOBIN A1C 5.9 % (4.0-6.0)
[2017-01-04 19:46] LABS: BASE EXCESS 3.5 mEq/L (-2.5-2.5); BICARBONATE 30 mEq/L (22-26); MEASURED OXYGEN SATURATION 94 % (92-95); PCO2 66 mmHg (34-38); PO2 89 mmHg (65-75); TCO2 32 mEq/L (23-27)
[2017-01-04 19:49] LABS: ASSIST CONTROL YES; END TIDAL CO2 25; O2 CONCENTRATIION 80 % (0-100); P/F RATIO 111 RATIO; TOTAL RATE 25
[2017-01-04 20:27] LABS: COLOR AMBER; LEUKOCYTE ESTERASE,URINE NEGATIVE (NEGATIVE); NITRITE,URINE NEGATIVE (NEGATIVE)
[2017-01-04 20:34] LABS: BACTERIA 1+ /hpf (NONE SEEN); HYALINE CASTS 25-50 /lpf (0-1); MUCUS 2+ /lpf (NONE-1+); RBC,URINE 50-182 /hpf (0-3)
[2017-01-04 20:37] LABS: MIXED VENOUS O2 SATURATION 84 % (65-75)
[2017-01-04 20:45] LABS: ABSOLUTE NRBC COUNT 0.03 10^3/uL (0-0.01); ADD DIFF? YES; ADD MORPH? NO; ADD SCAN? YES; ATYPICAL LYMPHOCYTE FLAG 0 (0-99); FRAGMENT RBC FLAG 30 (0-99); HEMATOCRIT 31.9 % (40.0-51.0); HEMOGLOBIN 10.3 g/dL (13.7-17.5); LIPEMIA HEMOLYSIS FLAG 80 (0-99); MEAN CELL HEMOGLOBIN 31.3 pg (27.9-34.1); MEAN CELL HEMOGLOBIN CONCENTR. 32.3 g/dL (32.4-36.7); MEAN PLATELET VOLUME 9.6 fL (8.7-11.7); NRBC-AUTO% 0.1 % (0.0-0.2); PLATELET CLUMPS FLAG 10 (0-99); PLATELET COUNT 220 10^3/uL (150-400); RED BLOOD CELL COUNT 3.29 10^6/uL (4.40-6.38); RED CELL DISTRIBUTION WIDTH 14.2 % (11.5-15.2)
[2017-01-04 20:46] LABS: LEFT SHIFT FLG 300 (0-99)
[2017-01-04 20:49] LABS: APTT 31.8 SEC (23.0-38.0); INR 1.29 (0.83-1.16); PROTIME(PATIENT) 16.1 SEC (12.0-15.0)
[2017-01-04] MEDS: POLYETHYLENE GLYCOL 3350 17 GM PKT PO SCH (20:56)
[2017-01-04 21:04] LABS: SCAN POSITIVE
[2017-01-04 21:14] LABS: MACROCYTES 1+; POLYCHROMASIA 1+
[2017-01-04 21:15] LABS: PLATELET ESTIMATE ADEQUATE (ADEQ)
[2017-01-04 21:17] LABS: ANION GAP 9 mEq/L (8-16); BILIRUBIN,TOTAL 0.9 mg/dL (0.1-1.4); CALCIUM 8.1 mg/dL (8.5-10.4); CARBON DIOXIDE 34 mEq/l (22-31); CHLORIDE 93 mEq/L (97-110); CREATININE 1.7 mg/dL (0.7-1.3); GLOMERULAR FILTRATION RATE 42; GLUCOSE 211 mg/dL (70-100); POTASSIUM 4.5 mEq/L (3.5-5.2); SODIUM 136 mEq/L (134-144)
[2017-01-04 21:32] LABS: LACGHOST ORDER
[2017-01-04] MEDS: fentaNYL/NACL 100 ML IV SCH (21:39)
[2017-01-04] MEDS ORDERED: NS 1,000 ML IV ONE (22:43)
[2017-01-04] MEDS: NOREPINEPHRINE/NS 500 ML IV SCH (22:52)
--- NOTE | 2017-01-04 22:56 | GPN ---
[f rep st] PROCEDURE NOTE DATE OF PROCEDURE: 01/04/2017 PROCEDURE: Emergent intubation. INDICATIONS: Respiratory failure. CONSENT: Consent was waived due to the emergent nature of the procedure. DESCRIPTION OF PROCEDURE: Conscious sedation was achieved using a total of 1 mg IV Versed and 40 mg IV etomidate. He tolerated these well without complications. After pre-oxygenating with a bag mask valve to oxygen saturation of about 94%, the patient was intuba anu on the first attempt using an 8.0 endotracheal tube via direct laryngoscopy with good visualizati on. After the tube was placed, the patient did have some emesis of bilious looking clear liquid. Th e tube placement was confirmed by capnography, which had appropriate color change, and equal breath s ounds as well as the lack of breath sounds in the midepigastric region. A chest x-ray showed the tub e to be in adequate position. A 2nd look with a bronchoscopy also confirmed the tube's placement. T here was no excess secretion in the airways to suggest a large volume aspiration. Overall, the patie nt tolerated this well without complications. /[id number]/MODL
[2017-01-05] MEDS: INSULIN LISPRO 100 UNIT/ML SC SCH ×4 (00:01→18:16)
[2017-01-05 01:10] LABS: ANION GAP 11 mEq/L (8-16); CALCIUM 6.1 mg/dL (8.5-10.4); CARBON DIOXIDE 25 mEq/l (22-31); CHLORIDE 106 mEq/L (97-110); GLOMERULAR FILTRATION RATE > 60; GLUCOSE 183 mg/dL (70-100); POTASSIUM 3.5 mEq/L (3.5-5.2); SODIUM 142 mEq/L (134-144)
[2017-01-05] MEDS: POTASSIUM Cl (KCl) 50 ML IV SCH ×3 (01:23→02:45)
[2017-01-05] MEDS: LORazepam 2 MG/ML INJ IVP SCH ×2 (03:45→12:09)
[2017-01-05] MEDS: ALBUTEROL 200 PUFFS/18 GM MDI IH SCH ×5 (03:53→20:28)
[2017-01-05] MEDS: PROPOFOL/EMULSION 100 ML IV SCH ×2 (04:26→19:15)
[2017-01-05 04:43] LABS: ABSOLUTE NRBC COUNT 0.03 10^3/uL (0-0.01); ADD DIFF? YES; ADD MORPH? NO; ATYPICAL LYMPHOCYTE FLAG 0 (0-99); FRAGMENT RBC FLAG 0 (0-99); HEMATOCRIT 30.5 % (40.0-51.0); HEMOGLOBIN 9.7 g/dL (13.7-17.5); LIPEMIA HEMOLYSIS FLAG 80 (0-99); MEAN CELL HEMOGLOBIN 30.1 pg (27.9-34.1); MEAN CELL HEMOGLOBIN CONCENTR. 31.8 g/dL (32.4-36.7); MEAN CELL VOLUME 94.7 fL (81.5-99.8); MEAN PLATELET VOLUME 9.5 fL (8.7-11.7); NRBC-AUTO% 0.1 % (0.0-0.2); PLATELET CLUMPS FLAG 10 (0-99); PLATELET COUNT 131 10^3/uL (150-400); RED BLOOD CELL COUNT 3.22 10^6/uL (4.40-6.38); RED CELL DISTRIBUTION WIDTH 14.2 % (11.5-15.2)
[2017-01-05 04:52] LABS: ADD SCAN? NO; LEFT SHIFT FLG 300 (0-99)
[2017-01-05] MEDS: methylPREDNISolone SOD SUCC 125 MG/2 ML VIAL IVP SCH ×2 (05:19→12:01)
[2017-01-05] MEDS: CLINDAMYCIN 600 MG/DEXTROSE 50 ML IV SCH ×3 (05:20→22:01)
[2017-01-05 05:27] LABS: ALANINE AMINOTRANSFERASE 72 IU/L (21-72); ALBUMIN 2.6 g/dL (3.5-5.0); ALKALINE PHOSPHATASE 54 IU/L (38-126); ANION GAP 11 mEq/L (8-16); ASPARTATE AMINOTRANSFERASE 75 IU/L (17-59); BILIRUBIN,TOTAL 0.8 mg/dL (0.1-1.4); CALCIUM 7.7 mg/dL (8.5-10.4); CARBON DIOXIDE 31 mEq/l (22-31); CHLORIDE 99 mEq/L (97-110); CREATININE 1.1 mg/dL (0.7-1.3); GLOMERULAR FILTRATION RATE > 60; GLUCOSE 228 mg/dL (70-100); MAGNESIUM 2.1 mg/dL (1.6-2.3); POTASSIUM 4.9 mEq/L (3.5-5.2); SODIUM 141 mEq/L (134-144)
[2017-01-05 05:49] LABS: BASE EXCESS 3.6 mEq/L (-2.5-2.5); BICARBONATE 29 mEq/L (22-26); MEASURED OXYGEN SATURATION 90 % (92-95); PCO2 57 mmHg (34-38); PO2 69 mmHg (65-75); TCO2 31 mEq/L (23-27)
[2017-01-05 05:59] LABS: ASSIST CONTROL YES; END TIDAL CO2 21; O2 CONCENTRATIION 70 % (0-100); P/F RATIO 99 RATIO; TOTAL RATE 28
[2017-01-05] MEDS: NS 1,000 ML IV SCH ×2 (06:08→15:53)
[2017-01-05 06:34] LABS: HYPOCHROMIA 1+; PLATELET ESTIMATE DECREASED (ADEQ)
--- NOTE | 2017-01-05 08:19 | HOSPPROG ---
Hospitalist Progress Note Assessment/Plan: #Acute on chronic resp failure: due to COPD exacerbation in setting of PNA #PNA: PN-allergy. On LQ. Vanc added today with Staph on culture. On Levaquin #COPD: Ventolin #Sepsis: due to PNA. Legionella and Strep pending. Resp, blood and urine cultures penidng #Suspected aspiration PNA: #Leukocytosis: infection +/- steroids. Trending down a bit #DAVID: 1.7--> 1.1 #h/o Etoh: no signs w/d now. Propofol #tobacco use: nicotine patch DVT ppx: Lovenox #Disp: cont inpt admission with sepsis, requires intubation, IV abx Subjective: intubated yesterday Objective: Vital Signs Temp Pulse Resp BP Pulse Ox 38.0 C 84 28 H 114/76 96 01/05/17 07:00 01/05/17 07:00 01/05/17 07:00 01/05/17 07:00 01/05/17 07:00 Microbiology 01/02/17 Unknown - Final Unspecified Laboratory Results 01/05/17 04:30 01/05/17 04:30 01/04/17 01/05/17 01/06/17 05:59 05:59 05:59 Intake Total 3223 3467.2 Output Total 1545 1110 Balance 1678 2357.2 PT 16.1 SEC (12.0-15.0) H 01/04/17 20:15 INR 1.29 (0.83-1.16) H 01/04/17 20:15 - Physical Exam Eyes: PERRL Ears, Nose, Mouth, Throat: other (ET tube in place) Cardiovascular: regular rate and rhythym Respiratory: rhonchi Gastrointestinal: normoactive bowel sounds Genitourinary: jacobs in urethra Skin: warm Neurologic: other (sedated) Psychiatric: other (sedated) ICD10 Worksheet Patient Problems: Problems Problem Status Onset Methicillin resistant Staphylococcus aureus infection Acute ~01/04/17 Pneumonia Acute Respiratory failure Acute Severe sepsis Acute COPD (chronic obstructive pulmonary disease) Acute COPD exacerbation Acute Chest pain Acute Chronic Diseaes Mgmt/Transitional Care Acute Dyspnea Acute Hypoxemia Acute
[2017-01-05] MEDS: NOREPINEPHRINE/NS 500 ML IV SCH ×2 (08:43→22:03)
[2017-01-05] MEDS: FAMOTIDINE 20 MG/NACL 50 ML IV SCH ×2 (08:46→21:17)
[2017-01-05] MEDS: ENOXAPARIN 40 MG/0.4 ML SYR SC SCH (08:46)
[2017-01-05] MEDS: NICOTINE 14 MG/24 HR PATCH TD SCH (08:46)
[2017-01-05] MEDS: CHLORHEXIDINE GLUCONATE 15 ML UDL PO SCH ×2 (08:47→22:01)
--- NOTE | 2017-01-05 09:23 | CPEKG ---
Heart Rate: 90 RR Interval: 667 P-R Interval: 132 QRSD Interval: 86 QT Interval: 372 QTC Interval: 455 P [place]: 70 QRS [place]: -31 T Wave [place]: 68 EKG Severity - BORDERLINE ECG - EKG Impression: SINUS RHYTHM EKG Impression: LEFT AXIS DEVIATION EKG Impression: LOW VOLTAGE THROUGHOUT EKG Impression: BORDERLINE T ABNORMALITIES, ANT-LAT LEADS Electronically Signed By: Markel Sylvester 05-Jan-2017 15:36:15
[2017-01-05] MEDS: POTASSIUM CL 20 MEQ TAB PO SCH (09:29)
[2017-01-05] MEDS: CHOLECALCIFEROL VIT D3 2,000 UNITS TAB/CAP PO SCH (09:29)
[2017-01-05] MEDS: ACETAMINOPHEN 650 MG SUPP PR PRN (11:53)
[2017-01-05 12:12] LABS: GLUCOSE 211 mg/dL (70-100)
[2017-01-05 13:11] LABS: POTASSIUM 4.1 mEq/L (3.5-5.2)
--- NOTE | 2017-01-05 14:03 | PDINTPN ---
Quality Control Lead Progress Note Assessment/Plan: Assessment/plan: 56 M who resides in [place] admitted 01/02/17 with hypoxia and pneumonia. He was initially listed as DNR but changed his mind during this admission. Initial therapy included levaquin, but his o2 requirement was growing and he was eventually treated with bipap the night of 01/03. However, at my initial eval early 01/04, he was markedly tachypneic and unable to answer questions, necessitating emergent intubation. His history also includes significant ETOH, for which he was getting scheduled Vodka and Librium. He is on chronic O2 at 6 lpm, but admission labs suggests chronic hypoxemia (elevated hct); and has CHF with an EF of only 35-40% on 01/02/17. His CXR prior to ETT looked similar in distribution but more consolidated. * Acute respiratory failure with hypoxemia and hypercapnia- 2/2 PNA with elevated procalcitonin. Although the wbc dropped dramatically, I agree with coverage for anaerobes so added clinda 01/04 after discussion with hospitalist. He has a reported PCN allergy, but the details are unknown at this time. Will ask for help from ID re: [email or web address]? His WBC peaked at 30 and is now lower at 25. PCO2 of 57 is likely his baseline since he has had an elevated HCO3 for a long time and pH is normal. Recheck abg in am and continue to titrate FiO2 to sat 90-94%. Better sedated on propofol vs precedex. * Hypotension- occurred last pm around 1830 possibly related to inadequate sedation, inc RR, and auto-peep since this has been resolving with improved sedation. Not likely precedex>propofol, and not temporally related to intubation. Too rapid improvement for septic shock and no evidence of ACS ( stable EKG and very mild trop). * ETOH- with wd? Not showing signs of wd at the moment and well sedated on propofol. * COPD by history- use albuterol/atrovent QID while on vent. On solumedrol 60 q6 - . * CHF- he looked volume overloaded on paper so initially agreed to lasix, but drop in BP post ETT precludes diuresis at this time. BNP was 742, so not too high. Observe critical care time 45 minutes excluding procedures for patient with severe illness and MOF. PE reflects time of eval (pre-ETT) 01/04/17 13:26 01/05/17 14:03 Objective: Vital Signs Temp Pulse Resp BP Pulse Ox 37.8 C 78 28 H 95/65 L 94 01/05/17 13:30 01/05/17 13:35 01/05/17 13:30 01/05/17 13:35 01/05/17 13:30 Microbiology 01/02/17 Unknown - Final Unspecified Sputum Culture - Final 01/04/17 20:57 - Final Sputum, Induced/Suctioned Laboratory Results 01/05/17 04:30 01/05/17 11:40 01/04/17 01/05/17 01/06/17 05:59 05:59 05:59 Intake Total 3223 3467.2 Output Total 1545 1110 525 Balance 1678 2357.2 -525 PT 16.1 SEC (12.0-15.0) H 01/04/17 20:15 INR 1.29 (0.83-1.16) H 01/04/17 20:15 Physical Exam - Physical Exam General Appearance: no apparent distress, other (sedated on vent) EENT: PERRL/EOMI Neck: supple Respiratory: crackles, No respiratory distress, No accessory muscle use Cardiac/Chest: regular rate, rhythm, edema Abdomen: non-tender, soft, distended, other (prolapsed stoma) Skin: normal color, warm/dry, No cyanosis Extremities: No pedal edema Neuro/Psych: cognition abnormalities, No abnormal pulp operator II-XII ICD10 Worksheet Patient Problems: Problems Problem Status Onset Pneumonia Acute Respiratory failure Acute Severe sepsis Acute COPD (chronic obstructive pulmonary disease) Acute COPD exacerbation Acute Chest pain Acute Chronic Diseaes Mgmt/Transitional Care Acute Dyspnea Acute Hypoxemia Acute
[2017-01-05] MEDS ORDERED: NS BOLUS 500 ML (Wide open) IV ONE (15:30)
[2017-01-05] MEDS: VANCOMYCIN HCL/NORMAL SALINE 250 ML IV SCH (15:53)
[2017-01-05 17:48] LABS: GLUCOSE 141 mg/dL (70-100); POTASSIUM 2.9 mEq/L (3.5-5.2)
[2017-01-05 19:00] LABS: POTASSIUM 3.7 mEq/L (3.5-5.2)
[2017-01-05] MEDS: POLYETHYLENE GLYCOL 3350 17 GM PKT PO SCH (21:20)
[2017-01-05] MEDS ORDERED: POTASSIUM Cl (KCl) 50 ML IV ONE (21:28)
[2017-01-05] MEDS: fentaNYL/NACL 100 ML IV SCH (22:02)
[2017-01-06] MEDS: ALBUTEROL 200 PUFFS/18 GM MDI IH SCH ×6 (00:06→20:38)
[2017-01-06] MEDS: INSULIN LISPRO 100 UNIT/ML SC SCH ×4 (00:28→17:54)
[2017-01-06 00:42] LABS: GLUCOSE 219 mg/dL (70-100); POTASSIUM 4.9 mEq/L (3.5-5.2)
[2017-01-06] MEDS: PROPOFOL/EMULSION 100 ML IV SCH ×3 (01:38→17:55)
--- NOTE | 2017-01-06 02:22 | GCON ---
[f rep st] CONSULTATION INFECTIOUS DISEASES CONSULTATION DATE OF CONSULTATION: 01/05/2017 REFERRING PHYSICIAN: Parker Santana MD REASON FOR CONSULTATION: Severe sepsis with pneumonia and underlying penicillin allergy. HISTORY OF PRESENT ILLNESS: The patient is a 56-year-old male with a past medical history of COPD an d alcohol abuse whom I am asked to see in consultation for severe sepsis with pneumonia and underlyin g penicillin allergy. The patient is currently intubated and sedated and unable to provide any histo ry; therefore, the history is obtained from the current medical and prior medical records. The patie nt was admitted on 01/02/17 with respiratory failure requiring increased oxygen needs and notable inc reased work of breathing. Chest x-ray at the time of presentation showed left-sided pneumonia. He w as started on levofloxacin. Admitting white blood cell count was noted to be 29.1. Blood cultures w ere obtained and have shown no growth. A respiratory panel by PCR was also negative. The patient's initial sputum sample on 01/02 showed 1+ white blood cells, 1+ epithelial cells, with 4+ gram-positiv e rods, 1+ gram-positive cocci, and culture yielded mixed oral itz. Yesterday, the patient's respi ratory failure progressed, and he required intubation for respiratory support. During the course of his hospital stay, he has been febrile with peak temperature yesterday of 38.7. His blood pressure h as dropped intermittently, requiring Levophed for blood pressure support currently. Given concerns a bout possible superimposed aspiration, clindamycin was added to his levofloxacin yesterday. Urine fo r legionella antigen and Streptococcus pneumoniae antigen are currently pending. Chest x-ray has solitario wn worsening left-sided consolidation. The patient has a history of penicillin allergy, which has be en difficult to further characterize in his medical record. Nursing staff did call [facility] where he resides, with their notation being that his allergy is "severe." The patient did receive ceftriax one during a hospitalization at [facility] last November without difficulty. A repeat sputum was performed y esterday, which shows 1+ white blood cells, with 3+ GPCs in clusters and 3+ gram-positive pleomorphic rods. I have spoken with the microbiology lab, with preliminary growth of Staphylococcus aureus not ed. Given the above findings, I am now asked to assist in his ongoing management. PAST MEDICAL HISTORY: Alcohol abuse, COPD with chronic respiratory failure on 6 L of oxygen chronica lly, anemia, depression, gastroesophageal reflux, hepatitis C status post treatment by Dr. 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 PAST SURGICAL HISTORY: Resection of carcinoid tumor, prior history of craniectomy. CURRENT MEDICATIONS: Levofloxacin 750 mg IV daily, clindamycin 600 mg IV q.8 hours, albuterol 4 puff s q.4 hours, chlorhexidine oral rinse b.i.d., vitamin D 6000 units p.o. daily, Lovenox 40 mg subcu da diamond, Pepcid 20 mg IV q.12 hours, fentanyl drip, propofol drip, Ativan as needed, NicoDerm CQ 14 mg pa tch applied daily, Levophed drip at 4 mcg, potassium chloride 20 mEq p.o. daily, status post methylpr ednisolone from 01/02 through 01/05/17. ALLERGIES: Penicillin listed with details unavailable; notable that the patient tolerated ceftriaxon e in November of 2015. SOCIAL HISTORY: The patient is noted to smoke cigarettes on a daily basis, history of alcohol abuse, lives at [place]. FAMILY HISTORY: Recorded as cirrhosis. REVIEW OF SYSTEMS: Currently, a 10-system review cannot be performed or is negative outside that not ed in [facility] when reviewed with nursing staff. PHYSICAL EXAMINATION: VITAL SIGNS: Temperature maximum 38.7, temperature current 37.7, heart rate 7 6, respiratory rate 28, blood pressure 88/61, oxygen saturation 94% on 60% FiO2. GENERAL: The patie nt is intubated and sedated. HEENT: There is no scleral icterus, conjunctival injection, or conjunc tival petechiae. The patient has an endotracheal tube in place. NECK: Supple without palpable lymp hadenopathy or thyromegaly. CHEST: There are bronchial breath sounds on the left lateral and upper lung ledbetter. Respiratory effort is increased. There is a squeaky element to his inspiration on the right. CARDIOVASCULAR: Regular rate and rhythm without murmurs, gallops, or rubs; heart tones are d istant. ABDOMEN: Soft, moderately distended, nontender. Colostomy shows pink stoma, which is somew hat protuberant. Soft stool is present in his ostomy bag. Bowel sounds are hypoactive. MUSCULOSKEL ETAL: There is no cyanosis, clubbing, or edema. SKIN: There is slight mottling along the lower ext remities bilaterally. There are no stigmata of endocarditis. The skin is warm and dry to touch exce pt for cool over the right knee. NEUROLOGICAL: The patient is intubated and sedated. Nursing staff notes that he moves all extremities when sedation is lightened. LYMPHATICS: No cervical, supraclav icular, or inguinal nodes palpable. LABORATORY DATA: White blood cell count 24.9, hematocrit 30.5, platelets 131; neutrophils 76%, bands 15%. Serum creatinine is 1.1, AST 75, ALT 72, alkaline phosphatase 54, bilirubin 0.8, albumin 2.6, procalcitonin 21. Urine legionella and Streptococcus pneumoniae antigens are pending. ABG shows pH of 7.3, PCO2 of 57, PO2 of 69. INR is 1.3. Blood cultures x2 from 01/02/17 are no growth. Respirat ory pathogen panel by PCR is negative. Sputum on 01/02/17 with mixed oral itz. Blood cultures and urine culture from 01/04/17 pending. Sputum from 01/04/17 as outlined in History of Present Illness with preliminary growth of Staphylococcus aureus. HIV antibody negative in 2016. Chest x-ray is outlined above, which was reviewed and interpreted by me today. IMPRESSION: 1. Severe sepsis due to left-sided pneumonia, with underlying history of tobacco and alcohol use as well as chronic lung disease: Most likely, this is due to community-acquired pneumonia with consider ations to include Streptococcus pneumoniae and other pathogens such as Haemophilus influenzae. Sputu m in the laboratory currently now is also suggesting preliminary growth of Staphylococcus aureus. As piration is in the differential diagnosis based on his presentation and clinical course as well. [place] pect pseudomonas will be less likely, although this is more remote consideration. Atypical pathogens such as legionella or, less likely, mycoplasma also of consideration. 2. Hepatitis C: Status post treatment with Harvoni, with clinical cure as documented with negative hepatitis C viral load post treatment. RECOMMENDATIONS: 1. Agree with continued levofloxacin and clindamycin. 2. Add vancomycin given preliminary growth of Staphylococcus aureus. 3. Await further sputum and blood cultures as well as serologic studies. 4. Continued ICU supportive care for respiratory failure and sepsis. 5. Follow creatinine over time given recent hypotension and use of vancomycin. Thank you for this consultation. We will continue to follow the patient with you. /[id number]/MODL
[2017-01-06] MEDS: VANCOMYCIN HCL/NORMAL SALINE 250 ML IV SCH ×2 (03:25→15:12)
[2017-01-06 05:38] LABS: BASE EXCESS 4.2 mEq/L (-2.5-2.5); BICARBONATE 30 mEq/L (22-26); MEASURED OXYGEN SATURATION 96 % (92-95); PCO2 52 mmHg (34-38); PO2 94 mmHg (65-75); TCO2 31 mEq/L (23-27)
[2017-01-06 05:42] LABS: ASSIST CONTROL YES; END TIDAL CO2 24; O2 CONCENTRATIION 55 % (0-100); P/F RATIO 171 RATIO; TOTAL RATE 28
[2017-01-06 05:54] LABS: ANION GAP 10 mEq/L (8-16); CALCIUM 7.7 mg/dL (8.5-10.4); CARBON DIOXIDE 31 mEq/l (22-31); CHLORIDE 106 mEq/L (97-110); CREATININE 0.6 mg/dL (0.7-1.3); GLOMERULAR FILTRATION RATE > 60; GLUCOSE 207 mg/dL (70-100); MAGNESIUM 2.8 mg/dL (1.6-2.3); POTASSIUM 4.7 mEq/L (3.5-5.2); SODIUM 147 mEq/L (134-144)
[2017-01-06] MEDS: CLINDAMYCIN 600 MG/DEXTROSE 50 ML IV SCH ×3 (06:07→22:35)
[2017-01-06] MEDS: POTASSIUM CL 20 MEQ TAB PO SCH (09:00)
[2017-01-06] MEDS: CHOLECALCIFEROL VIT D3 2,000 UNITS TAB/CAP PO SCH (09:01)
[2017-01-06] MEDS: FAMOTIDINE 20 MG/NACL 50 ML IV SCH ×2 (09:21→20:52)
[2017-01-06] MEDS: methylPREDNISolone SOD SUCC 40 MG/ML VIAL IVP SCH (09:22)
[2017-01-06] MEDS: ENOXAPARIN 40 MG/0.4 ML SYR SC SCH (09:24)
[2017-01-06] MEDS: CHLORHEXIDINE GLUCONATE 15 ML UDL PO SCH ×2 (09:25→20:51)
[2017-01-06] MEDS: NICOTINE 14 MG/24 HR PATCH TD SCH (09:25)
--- NOTE | 2017-01-06 09:28 | PDINTPN ---
Spot Sprayer Progress Note Assessment/Plan: Assessment/plan: 56 M who resides in [place] admitted 01/02/17 with hypoxia and pneumonia. He was initially listed as DNR but changed his mind during this admission. Initial therapy included levaquin, but his O2 requirement was growing and he was eventually treated with bipap the night of 01/03. However, at my initial eval early 01/04, he was markedly tachypneic and unable to answer questions, necessitating emergent intubation. His history also includes significant ETOH, for which he was getting scheduled Vodka and Librium. He is on chronic O2 at 6 lpm, but admission labs suggests chronic hypoxemia (elevated hct); and has CHF with an EF of only 35-40% on 01/02/17. His CXR prior to ETT looked similar in distribution but more consolidated. * Acute respiratory failure with hypoxemia and hypercapnia- 2/2 PNA with elevated procalcitonin. Clinically improved with reduced FiO2 and PaO2 of 94. WBC pending for today, but appreciate ID assistance. Remains on Clinda/levaquin with vanco added 01/05 2/2 Scx with S. Aureus. PCO2 of 55-60 is likely his baseline since he has had an elevated HCO3 for a long time and pH is normal. RR decreased * Hypotension- possible volume issue, but levophed titrating down. Continue to hold diuretics. PEEP decreased from 10-8 today. * ETOH- with wd? Not showing signs of wd at the moment and well sedated on propofol. * COPD by history- use albuterol/atrovent QID while on vent. Reduced solumedrol to 40/day. * CHF- he looked volume overloaded on paper so initially agreed to lasix, but drop in BP post ETT precluded diuresis. BNP was 742, so not too high. Observe critical care time 40 minutes excluding procedures for patient with severe illness and MOF. 01/04/17 13:26 01/05/17 14:03 01/06/17 09:24 Subjective: improved FiO2 since yesterday. still on low dose levophed Objective: Vital Signs Temp Pulse Resp BP Pulse Ox 37.4 C 64 28 H 121/79 H 95 01/06/17 08:00 01/06/17 08:01 01/06/17 08:01 01/06/17 08:00 01/06/17 08:01 Microbiology 01/04/17 20:57 - Final Sputum, Induced/Suctioned 01/02/17 Unknown - Final Unspecified Sputum Culture - Final Laboratory Results 01/05/17 04:30 01/06/17 05:10 01/05/17 01/06/17 01/07/17 05:59 05:59 05:59 Intake Total 3467.2 3958.1 Output Total 1110 1755 225 Balance 2357.2 2203.1 -225 PT 16.1 SEC (12.0-15.0) H 01/04/17 20:15 INR 1.29 (0.83-1.16) H 01/04/17 20:15 Physical Exam - Physical Exam General Appearance: no apparent distress, obtunded, other (sedated on vent) EENT: PERRL/EOMI Neck: supple Respiratory: lungs clear, normal breath sounds, decreased breath sounds, No respiratory distress Cardiac/Chest: regular rate, rhythm, No edema Abdomen: non-tender, soft, other (stoma prolapse), No distended Skin: normal color, warm/dry Lymphatic: no adenopathy Extremities: No pedal edema Neuro/Psych: cognition abnormalities, No abnormal scholarship counselor II-XII ICD10 Worksheet Patient Problems: Problems Problem Status Onset Pneumonia Acute Respiratory failure Acute Severe sepsis Acute COPD (chronic obstructive pulmonary disease) Acute COPD exacerbation Acute Chest pain Acute Chronic Diseaes Mgmt/Transitional Care Acute Dyspnea Acute Hypoxemia Acute
[2017-01-06] MEDS: NS 1,000 ML IV SCH (09:35)
[2017-01-06] MEDS ORDERED: ACETAMINOPHEN 325 MG TAB PO PRN (10:27)
[2017-01-06 11:36] LABS: POTASSIUM 4.2 mEq/L (3.5-5.2)
--- NOTE | 2017-01-06 12:01 | HOSPPROG ---
Hospitalist Progress Note Assessment/Plan: #Acute on chronic resp failure: due to COPD exacerbation in setting of PNA. Fio2 now 50% #Strep PNA: PCN-allergy. Staph also on culture. On Vanc/Levaquin/Clinda. ID following #COPD: Ventolin #Septic shock: weaning down Levophed. Due to PNA. urine strep positive. Resp, blood and urine cultures pending #Leukocytosis: infection +/- steroids. Trending down a bit #DAVID: 1.7--> 1.1 #h/o Etoh: no signs w/d now. Propofol #tobacco use: nicotine patch DVT ppx: Lovenox #Disp: cont inpt admission with sepsis, requires intubation, IV abx Subjective: no acute events overnight Objective: Vital Signs Temp Pulse Resp BP Pulse Ox 37.4 C 75 24 H 144/87 H 89 L 01/06/17 11:00 01/06/17 11:29 01/06/17 11:29 01/06/17 11:00 01/06/17 11:29 Microbiology 01/04/17 20:57 - Final Sputum, Induced/Suctioned 01/02/17 Unknown - Final Unspecified Sputum Culture - Final Laboratory Results 01/05/17 04:30 01/06/17 11:20 01/05/17 01/06/17 01/07/17 05:59 05:59 05:59 Intake Total 3467.2 3958.1 Output Total 1110 1755 475 Balance 2357.2 2203.1 -475 PT 16.1 SEC (12.0-15.0) H 01/04/17 20:15 INR 1.29 (0.83-1.16) H 01/04/17 20:15 - Physical Exam Constitutional: other (sedated) Eyes: PERRL Ears, Nose, Mouth, Throat: moist mucous membranes, other (ETT in place) Cardiovascular: regular rate and rhythym Respiratory: rhonchi Gastrointestinal: normoactive bowel sounds Genitourinary: jacobs in urethra Skin: warm Psychiatric: other (sedated) ICD10 Worksheet Patient Problems: Problems Problem Status Onset Pneumonia Acute Respiratory failure Acute Severe sepsis Acute COPD (chronic obstructive pulmonary disease) Acute COPD exacerbation Acute Chest pain Acute Chronic Diseaes Mgmt/Transitional Care Acute Dyspnea Acute Hypoxemia Acute
[2017-01-06] MEDS: fentaNYL/NACL 100 ML IV SCH (12:27)
--- NOTE | 2017-01-06 14:37 | PCMIDPN ---
Assessment/Plan: Assessment: Pneumonia with respiratory failure. Patient has Staph aureus as well as corynebacterium growing from sputum culture. Urinary strep pneumo antigen is positive. Patient is being treated with vancomycin, Levaquin and clindamycin. Aspiration as an etiology is being entertained. At this point the patient is stable and remains ventilated. Will continue the current regimen until culture specimens are further delineated. Underlying chronic lung disease is complicating his treatment. Plan: 1. Continue vancomycin, Levaquin and clindamycin. 2. follow up on sensitivities of the Staph aureus. 3. Follow respiratory status. 01/06/17 14:35 Subjective: Patient remains intubated and sedated. No significant clinical changes. Temp curve is relatively flat. Objective: Vancomycin # 1 Levaquin # 4 Clindamycin # 3 Vital Signs Temp Pulse Resp BP Pulse Ox 37.4 C 77 24 H 95/58 L 95 01/06/17 14:00 01/06/17 14:00 01/06/17 14:00 01/06/17 14:00 01/06/17 14:00 Microbiology 01/04/17 20:57 - Final Sputum, Induced/Suctioned 01/02/17 Unknown - Final Unspecified Sputum Culture - Final Laboratory Results 01/05/17 04:30 01/06/17 11:20 01/05/17 01/06/17 01/07/17 05:59 05:59 05:59 Intake Total 3467.2 3958.1 Output Total 1110 1755 670 Balance 2357.2 2203.1 -670 - Physical Exam General Appearance: WD/WN, no apparent distress, other (Intubated and sedated) Respiratory: coarse breath sounds, No lungs clear, No crackles, No stridor Cardiac/Chest: regular rate, rhythm, No bradycardia, No tachycardia Skin: normal color, warm/dry, No rash ICD10 Worksheet Patient Problems: Problems Problem Status Onset Pneumonia Acute Respiratory failure Acute Severe sepsis Acute COPD (chronic obstructive pulmonary disease) Acute COPD exacerbation Acute Chest pain Acute Chronic Diseaes Mgmt/Transitional Care Acute Dyspnea Acute Hypoxemia Acute
[2017-01-06 17:54] LABS: POTASSIUM 4.2 mEq/L (3.5-5.2)
[2017-01-06] MEDS: POLYETHYLENE GLYCOL 3350 17 GM PKT PO SCH (21:14)
[2017-01-06] MEDS ORDERED: LORazepam 2 MG/ML INJ IVP ONE (21:15)
[2017-01-06] MEDS: LORazepam 2 MG/ML INJ IVP PRN (23:19)
[2017-01-07] MEDS: INSULIN LISPRO 100 UNIT/ML SC SCH ×5 (00:23→23:41)
[2017-01-07] MEDS: ALBUTEROL 200 PUFFS/18 GM MDI IH SCH ×7 (00:26→23:49)
[2017-01-07] MEDS: LORazepam 2 MG/ML INJ IVP PRN ×4 (00:48→09:26)
[2017-01-07 00:51] LABS: POTASSIUM 4.6 mEq/L (3.5-5.2)
[2017-01-07] MEDS: PROPOFOL/EMULSION 100 ML IV SCH ×2 (01:22→09:20)
[2017-01-07] MEDS: NS 1,000 ML IV SCH (01:23)
[2017-01-07] MEDS: fentaNYL/NACL 100 ML IV SCH ×2 (01:35→23:21)
[2017-01-07] MEDS: VANCOMYCIN HCL/NORMAL SALINE 250 ML IV SCH ×2 (03:13→15:29)
[2017-01-07 05:21] LABS: HEMOGLOBIN 9.2 g/dL (13.7-17.5); MEAN CELL HEMOGLOBIN 30.5 pg (27.9-34.1); MEAN CELL HEMOGLOBIN CONCENTR. 31.7 g/dL (32.4-36.7); RED BLOOD CELL COUNT 3.02 10^6/uL (4.40-6.38); RED CELL DISTRIBUTION WIDTH 15.1 % (11.5-15.2)
[2017-01-07 05:42] LABS: ANION GAP 8 mEq/L (8-16); CALCIUM 7.7 mg/dL (8.5-10.4); CARBON DIOXIDE 32 mEq/l (22-31); CHLORIDE 108 mEq/L (97-110); CREATININE 0.6 mg/dL (0.7-1.3); GLOMERULAR FILTRATION RATE > 60; GLUCOSE 142 mg/dL (70-100); MAGNESIUM 2.8 mg/dL (1.6-2.3); POTASSIUM 4.5 mEq/L (3.5-5.2); SODIUM 148 mEq/L (134-144)
[2017-01-07] MEDS: CLINDAMYCIN 600 MG/DEXTROSE 50 ML IV SCH (05:57)
[2017-01-07] MEDS: CHOLECALCIFEROL VIT D3 2,000 UNITS TAB/CAP PO SCH (08:36)
[2017-01-07] MEDS: ENOXAPARIN 40 MG/0.4 ML SYR SC SCH (08:36)
[2017-01-07] MEDS: FAMOTIDINE 20 MG/NACL 50 ML IV SCH ×2 (08:36→20:14)
[2017-01-07] MEDS: CHLORHEXIDINE GLUCONATE 15 ML UDL PO SCH ×2 (08:36→20:00)
[2017-01-07] MEDS: methylPREDNISolone SOD SUCC 40 MG/ML VIAL IVP SCH (08:37)
[2017-01-07] MEDS: POTASSIUM CL 20 MEQ TAB PO SCH (08:37)
[2017-01-07] MEDS: NICOTINE 14 MG/24 HR PATCH TD SCH (08:37)
[2017-01-07] MEDS ORDERED: ALBUMIN 25% 100 ML IV ONE (08:42)
[2017-01-07] MEDS ORDERED: FUROSEMIDE 40 MG/4 ML VIAL IVP ONE (08:43)
--- NOTE | 2017-01-07 08:51 | PDINTPN ---
Speech Therapy Director Progress Note Assessment/Plan: Assessment/plan: 56 M who resides in [place] admitted 01/02/17 with hypoxia and pneumonia. He was initially listed as DNR but changed his mind during this admission. Initial therapy included levaquin, but his O2 requirement was growing and he was eventually treated with bipap the night of 01/03. However, at my initial eval early 01/04, he was markedly tachypneic and unable to answer questions, necessitating emergent intubation. His history also includes significant ETOH, for which he was getting scheduled Vodka and Librium. He is on chronic O2 at 6 lpm, but admission labs suggests chronic hypoxemia (elevated hct); and has CHF with an EF of only 35-40% on 01/02/17. His CXR prior to ETT looked similar in distribution but more consolidated. * Acute respiratory failure with hypoxemia and hypercapnia- 2/2 PNA with elevated procalcitonin. Remains on Clinda/levaquin with vanco added 01/05, 2/ 2 Scx with MRSA. PCO2 of 55-60 is likely his baseline since he has had an elevated HCO3 for a long time and pH is normal. RR decreased. Attempted to reduce FiO2 but sats dropped. CXR shows progressive consolidation, so not likely mass but wouldn't oppose chest CT for further eval (eg r/o necrosis, abscess). * Hypotension- possible volume issue, and resolved. Will try albumin/lasix * ETOH- since he was getting Vodka daily prior to intubation, timing would be appropriate for this now. Will resume precedex drip in effort to reduce ativan requirement * COPD by history- use albuterol/atrovent QID while on vent. Reduced solumedrol to 40/day on 01/06/17 * CHF- he looked volume overloaded on paper so initially agreed to lasix, but drop in BP post ETT precluded diuresis. BNP was 742, so not too high. see above diuresis plans in effort to reduce FiO2 * Dispo: On 01/04/17 he was unable to communicate 2/2 respiratory distress. I was told that he had discussed his MOST form and agreed to aggressive treatment , including intubation which was required at that time. I believe his situation is completely recoverable and would favor ongoing treatment. He may eventually need help identifying a decision maker. critical care time 45 minutes excluding procedures for patient with severe illness and MOF. Subjective: Increasing agitation overnight with meed for q2 hr ativan per staff consultant. Objective: Vital Signs Temp Pulse Resp BP Pulse Ox 37.3 C 68 24 H 92/62 L 94 01/07/17 07:00 01/07/17 07:00 01/07/17 07:00 01/07/17 07:00 01/07/17 07:00 Microbiology 01/04/17 20:57 - Final Sputum, Induced/Suctioned 01/04/17 20:10 Urine Culture - Final Urine,Catheterized Laboratory Results 01/07/17 05:10 01/07/17 05:10 01/06/17 01/07/17 01/08/17 05:59 05:59 05:59 Intake Total 3958.1 3221.5 Output Total 1755 1710 Balance 2203.1 1511.5 PT 16.1 SEC (12.0-15.0) H 01/04/17 20:15 INR 1.29 (0.83-1.16) H 01/04/17 20:15 Physical Exam - Physical Exam General Appearance: no apparent distress, obtunded, other (sedated on vent) EENT: PERRL/EOMI Neck: supple Respiratory: crackles, No respiratory distress, No accessory muscle use, No wheezing Cardiac/Chest: regular rate, rhythm, edema Abdomen: non-tender, soft, other (prolpased stoma), No distended Skin: normal color, warm/dry, No cyanosis Lymphatic: no adenopathy Extremities: pedal edema Neuro/Psych: No abnormal assistant softball coach II-XII ICD10 Worksheet Patient Problems: Problems Problem Status Onset Methicillin resistant Staphylococcus aureus infection Acute ~01/04/17 Pneumonia Acute Respiratory failure Acute Severe sepsis Acute COPD (chronic obstructive pulmonary disease) Acute COPD exacerbation Acute Chest pain Acute Chronic Diseaes Mgmt/Transitional Care Acute Dyspnea Acute Hypoxemia Acute
--- NOTE | 2017-01-07 08:55 | PCMIDPN ---
Assessment/Plan: # S aureus L sided PNA, dense consolidation, during hospitalization developed progressive resp failure now on vent. Resp failure likely multifactorial with underlying EtOH withdrawal. WBC improving --dc clindamycin and levofloxacin --continue vancomycin and check trough today # Unclear PCN allergy: tolerated cephalosporins in past meds levoflox clindamycin vancomycin micro 01/04 blood cx (2) NGTD 01/04 sputum : SA, corynebacterium Subjective: no specific events intubated 01/04 Objective: Vital Signs Temp Pulse Resp BP Pulse Ox 37.3 C 82 26 H 99/64 L 93 01/07/17 08:00 01/07/17 08:00 01/07/17 08:00 01/07/17 08:00 01/07/17 08:00 Microbiology 01/04/17 20:57 - Final Sputum, Induced/Suctioned 01/04/17 20:10 Urine Culture - Final Urine,Catheterized Laboratory Results 01/07/17 05:10 01/07/17 05:10 01/06/17 01/07/17 01/08/17 05:59 05:59 05:59 Intake Total 3958.1 3221.5 Output Total 1755 1710 Balance 2203.1 1511.5 - Physical Exam General Appearance: other (sedated on vent) EENT: ET Tube Respiratory: coarse breath sounds Neck: supple Cardiac/Chest: regular rate, rhythm Extremities: pedal edema, other (anasarca) Abdomen: non-tender, soft Male Genitalia: jacobs Skin: No rash ICD10 Worksheet Patient Problems: Problems Problem Status Onset Methicillin resistant Staphylococcus aureus infection Acute ~01/04/17 Pneumonia Acute Respiratory failure Acute Severe sepsis Acute COPD (chronic obstructive pulmonary disease) Acute COPD exacerbation Acute Chest pain Acute Chronic Diseaes Mgmt/Transitional Care Acute Dyspnea Acute Hypoxemia Acute
[2017-01-07] MEDS ORDERED: DEXMEDETOMIDINE HCL 400 MCG in NS 100 ML IV SCH (09:00)
[2017-01-07] MEDS: DEXMEDETOMIDINE IN 0.9 % NACL 100 ML IV SCH ×2 (09:19→18:18)
--- NOTE | 2017-01-07 12:09 | ASMTCMCOM ---
CM Note CM Note Notes: Spoke with spiritual care re: the Most form and updating it with patient's current wishes. The current MOST form on file was completed in 2014 and is DNR. Patient is now requesting full code. Spiritual care will f/u with patient to clarify. Still awaiting therapy recommendations to determine d/c needs. CM will follow. Date Signed: 01/07/2017 12:08 PM Electronically Signed By:Ellen Glaser LCSW
--- NOTE | 2017-01-07 13:10 | HOSPPROG ---
Hospitalist Progress Note Assessment/Plan: #Acute on chronic resp failure: due to COPD exacerbation in setting of PNA. Fio2 now 50% #Strep pneumo and Staph PNA: Cont Vanc, stop Clinda/LQ #COPD: Ventolin #Septic shock: off Levophed. Due to PNA. #Leukocytosis: infection +/- steroids. Much improved today; down to 16 #DAVID: 1.7--> 1.1 #h/o Etoh: cont Precedex and Ativan #Hypernatremia: due to insensible losses. Add D5, repeat BMP #tobacco use: nicotine patch DVT ppx: Lovenox #Disp: cont inpt admission with sepsis, requires intubation, IV abx Subjective: off Levophed since yesterday Objective: Vital Signs Temp Pulse Resp BP Pulse Ox 37.8 C 61 24 H 119/71 99 01/07/17 12:00 01/07/17 12:00 01/07/17 12:00 01/07/17 12:00 01/07/17 12:00 Microbiology 01/04/17 20:57 - Final Sputum, Induced/Suctioned 01/04/17 20:10 Urine Culture - Final Urine,Catheterized Laboratory Results 01/07/17 05:10 01/07/17 05:10 01/06/17 01/07/17 01/08/17 05:59 05:59 05:59 Intake Total 3958.1 3221.5 Output Total 1755 1710 Balance 2203.1 1511.5 PT 16.1 SEC (12.0-15.0) H 01/04/17 20:15 INR 1.29 (0.83-1.16) H 01/04/17 20:15 - Physical Exam Constitutional: no apparent distress Eyes: PERRL Ears, Nose, Mouth, Throat: moist mucous membranes, other (ETT in place) Cardiovascular: regular rate and rhythym, no murmur, rub, or gallop Respiratory: rhonchi Gastrointestinal: normoactive bowel sounds Genitourinary: jacobs in urethra Skin: warm Musculoskeletal: other (sedated) ICD10 Worksheet Patient Problems: Problems Problem Status Onset Methicillin resistant Staphylococcus aureus infection Acute ~01/04/17 Pneumonia Acute Respiratory failure Acute Severe sepsis Acute COPD (chronic obstructive pulmonary disease) Acute COPD exacerbation Acute Chest pain Acute Chronic Diseaes [facility]/Transitional Care Acute Dyspnea Acute Hypoxemia Acute
[2017-01-07 14:49] LABS: POTASSIUM 4.5 mEq/L (3.5-5.2)
[2017-01-07 14:52] LABS: ANION GAP 9 mEq/L (8-16); CALCIUM 7.9 mg/dL (8.5-10.4); CARBON DIOXIDE 33 mEq/l (22-31); CHLORIDE 103 mEq/L (97-110); CREATININE 0.6 mg/dL (0.7-1.3); GLOMERULAR FILTRATION RATE > 60; GLUCOSE 224 mg/dL (70-100); POTASSIUM 4.5 mEq/L (3.5-5.2); SODIUM 145 mEq/L (134-144)
[2017-01-07 17:29] LABS: POTASSIUM 4.3 mEq/L (3.5-5.2)
[2017-01-07] MEDS: POLYETHYLENE GLYCOL 3350 17 GM PKT PO SCH (21:30)
[2017-01-08] MEDS: PROPOFOL/EMULSION 100 ML IV SCH ×4 (00:18→20:39)
[2017-01-08] MEDS: D5W 1,000 ML IV SCH ×2 (00:26→15:00)
[2017-01-08] MEDS: LORazepam 2 MG/ML INJ IVP PRN (00:39)
[2017-01-08 00:59] LABS: POTASSIUM 4.1 mEq/L (3.5-5.2)
[2017-01-08] MEDS: VANCOMYCIN HCL/NORMAL SALINE 250 ML IV SCH ×2 (02:49→15:45)
[2017-01-08] MEDS: ALBUTEROL 200 PUFFS/18 GM MDI IH SCH ×5 (04:36→20:06)
[2017-01-08 05:07] LABS: BASE EXCESS 7.3 mEq/L (-2.5-2.5); BICARBONATE 33 mEq/L (22-26); MEASURED OXYGEN SATURATION 95 % (92-95); PCO2 56 mmHg (34-38); PO2 86 mmHg (65-75); TCO2 34 mEq/L (23-27)
[2017-01-08 05:17] LABS: ASSIST CONTROL YES; O2 CONCENTRATIION 60 % (0-100); P/F RATIO 143 RATIO; TOTAL RATE 24
[2017-01-08] MEDS: DEXMEDETOMIDINE IN 0.9 % NACL 100 ML IV SCH ×3 (05:43→20:41)
[2017-01-08] MEDS: INSULIN LISPRO 100 UNIT/ML SC SCH ×3 (05:46→18:26)
[2017-01-08 05:48] LABS: HEMOGLOBIN 9.4 g/dL (13.7-17.5); MEAN CELL HEMOGLOBIN 29.7 pg (27.9-34.1); MEAN CELL HEMOGLOBIN CONCENTR. 31.3 g/dL (32.4-36.7); MEAN CELL VOLUME 94.9 fL (81.5-99.8); RED BLOOD CELL COUNT 3.16 10^6/uL (4.40-6.38)
[2017-01-08 06:14] LABS: ANION GAP 8 mEq/L (8-16); CARBON DIOXIDE 36 mEq/l (22-31); CHLORIDE 101 mEq/L (97-110); CREATININE 0.6 mg/dL (0.7-1.3); GLOMERULAR FILTRATION RATE > 60; GLUCOSE 168 mg/dL (70-100); MAGNESIUM 2.1 mg/dL (1.6-2.3); POTASSIUM 4.2 mEq/L (3.5-5.2); SODIUM 145 mEq/L (134-144)
--- NOTE | 2017-01-08 09:58 | PCMIDPN ---
Assessment/Plan: Assessment/Plan: * Severe sepsis due to left-sided pneumonia with underlying tobacco and alcohol abuse: Clinically has stabilized with no longer requirement for pressor support. Repeat sputum with growth of both MRSA and Corynebacterium striatum. 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 Both organisms will be covered by vancomycin. Will continue with current vancomycin dose as suspect he may begin to accumulate further with additional time on vancomycin. Patient also has positive urine Streptococcus pneumoniae antigen - unclear if initial illness due to Streptococcus pneumoniae or whether this represents false positive result. In event true pathogen, also covered by vancomycin. 01/08/17 09:55 Subjective: Intubated and sedated. No longer requiring pressors for blood pressure support. Objective: Vital Signs Temp Pulse Resp BP Pulse Ox 38.0 C 73 25 H 97/58 L 94 01/08/17 07:00 01/08/17 07:59 01/08/17 07:59 01/08/17 07:00 01/08/17 07:59 Microbiology 01/04/17 20:57 - Final Sputum, Induced/Suctioned Sputum Culture - Final MRSA Corynebacterium Striatum Laboratory Results 01/08/17 05:38 01/08/17 05:38 01/07/17 01/08/17 01/09/17 05:59 05:59 05:59 Intake Total 3221.5 2706.6 Output Total 1710 3075 Balance 1511.5 -368.4 Temperature maximum 38.0 Vancomycin # 3 Sputum with growth of MRSA and Corynebacterium striatum Blood cultures no growth on 01/02 and 01/04/2017 Laboratory Tests 01/07/17 14:21 Vancomycin Trough 9.6 - Physical Exam General Appearance: non-toxic, other (Intubated, sedated) EENT: ET Tube, No scleral icterus, No conjunctival petechiae Respiratory: coarse breath sounds Cardiac/Chest: regular rate, rhythm, No systolic murmur Extremities: No inflammation Abdomen: non-tender, No distended Skin: No embolic lesions ICD10 Worksheet Patient Problems: Problems Problem Status Onset Methicillin resistant Staphylococcus aureus infection Acute ~01/04/17 Pneumonia Acute Respiratory failure Acute Severe sepsis Acute COPD (chronic obstructive pulmonary disease) Acute COPD exacerbation Acute Chest pain Acute Chronic Diseaes Mgmt/Transitional Care Acute Dyspnea Acute Hypoxemia Acute
--- NOTE | 2017-01-08 09:59 | PDINTPN ---
Home Supervisor Progress Note Assessment/Plan: Assessment/plan: 56 M who resides in [place] admitted 01/02/17 with hypoxia and pneumonia. He was initially listed as DNR but changed his mind during this admission. Initial therapy included levaquin, but his O2 requirement was growing and he was eventually treated with bipap the night of 01/03. However, at my initial eval early 01/04, he was markedly tachypneic and unable to answer questions, necessitating emergent intubation. His history also includes significant ETOH, for which he was getting scheduled Vodka and Librium. He is on chronic O2 at 6 lpm, but admission labs suggests chronic hypoxemia (elevated hct); and has CHF with an EF of only 35-40% on 01/02/17. His CXR prior to ETT looked similar in distribution but more consolidated. * Acute respiratory failure with hypoxemia and hypercapnia- 2/2 PNA with elevated procalcitonin. Scx with MRSA- now on vancomycin monotherapy. PCO2 of 55-60 is likely his baseline since he has had an elevated HCO3 for a long time and pH is normal. RR decreased. Attempted to reduce FiO2 but sats dropped. Continue efforts to wean FiO2 as tolerated, targetting sat 90-94%. * Hypotension- possible volume issue, and resolved. * ETOH- since he was getting Vodka daily prior to intubation, timing would be appropriate for this now. Will resume precedex drip in effort to reduce ativan requirement * COPD by history- use albuterol/atrovent QID while on vent. Reduced solumedrol to 40/day on 01/06/17, will continue taper * CHF- he looked volume overloaded on paper so initially agreed to lasix, but drop in BP post ETT precluded diuresis. BNP was 742, so not too high. Albumin/ lasix given 01/07 without significant benefit. Will discuss further efforts with hospitalist later today * Dispo: On 01/04/17 he was unable to communicate 2/2 respiratory distress. I was told that he had discussed his MOST form and agreed to aggressive treatment , including intubation which was required at that time. I believe his situation is completely recoverable and would favor ongoing treatment. He may eventually need help identifying a decision maker. critical care time 35 minutes excluding procedures for patient with severe illness and MOF. 01/08/17 09:57 Subjective: no events overnight Objective: Vital Signs Temp Pulse Resp BP Pulse Ox 38.0 C 73 25 H 97/58 L 94 01/08/17 07:00 01/08/17 07:59 01/08/17 07:59 01/08/17 07:00 01/08/17 07:59 Microbiology 01/04/17 20:57 - Final Sputum, Induced/Suctioned Sputum Culture - Final MRSA Corynebacterium Striatum Laboratory Results 01/08/17 05:38 01/08/17 05:38 01/07/17 01/08/17 01/09/17 05:59 05:59 05:59 Intake Total 3221.5 2706.6 Output Total 1710 3075 Balance 1511.5 -368.4 PT 16.1 SEC (12.0-15.0) H 01/04/17 20:15 INR 1.29 (0.83-1.16) H 01/04/17 20:15 Physical Exam - Physical Exam General Appearance: no apparent distress, obtunded, other (sedated on vent) EENT: PERRL/EOMI Neck: supple Respiratory: lungs clear, normal breath sounds, decreased breath sounds, No respiratory distress Cardiac/Chest: regular rate, rhythm, No edema Abdomen: non-tender, soft, No distended Skin: normal color, warm/dry, No cyanosis Lymphatic: no adenopathy Extremities: No pedal edema Neuro/Psych: cognition abnormalities ICD10 Worksheet Patient Problems: Problems Problem Status Onset Methicillin resistant Staphylococcus aureus infection Acute ~01/04/17 Pneumonia Acute Respiratory failure Acute Severe sepsis Acute COPD (chronic obstructive pulmonary disease) Acute COPD exacerbation Acute Chest pain Acute Chronic Diseaes Mgmt/Transitional Care Acute Dyspnea Acute Hypoxemia Acute
[2017-01-08] MEDS: CHLORHEXIDINE GLUCONATE 15 ML UDL PO SCH ×2 (10:30→20:39)
[2017-01-08] MEDS: FAMOTIDINE 20 MG/NACL 50 ML IV SCH ×2 (10:33→20:38)
[2017-01-08] MEDS: methylPREDNISolone SOD SUCC 40 MG/ML VIAL IVP SCH (10:33)
[2017-01-08] MEDS: NICOTINE 14 MG/24 HR PATCH TD SCH (10:33)
[2017-01-08] MEDS: ENOXAPARIN 40 MG/0.4 ML SYR SC SCH (10:33)
[2017-01-08] MEDS ORDERED: ONDANSETRON DISINTEGRATING 4 MG TAB TUBE PRN (11:00)
[2017-01-08] MEDS: POTASSIUM CL 20 MEQ TAB PO SCH (12:28)
[2017-01-08] MEDS: CHOLECALCIFEROL VIT D3 2,000 UNITS TAB/CAP PO SCH (12:28)
--- NOTE | 2017-01-08 12:48 | HOSPPROG ---
Hospitalist Progress Note Assessment/Plan: 56 yo M with hx of COPD presenting with acute on chronic respiratory failure #Acute on chronic resp failure: due to COPD exacerbation in setting of PNA. Fio2 now 60% #Strep pneumo and Staph PNA: Cont Vanc, stop Clinda/LQ #COPD: Ventolin, steroids #Septic shock: off Levophed. Due to PNA. HD stable though BP remains soft #Leukocytosis: infection +/- steroids. Continues to trend down, now 14 from a max of 30 #DAVID: resolved, creatinine stable at 0.6 #h/o Etoh: cont Precedex and Ativan #Hypernatremia: due to insensible losses.Mild and stable on D5 # hyperglycemia: driven by steroids, stress, d5--continue SSI #tobacco use: nicotine patch DVT ppx: Lovenox FEN: continue TF, at goal. Reviewed cxr personally for concerns of tube placement, lucency overlying right heart noted. #Disp: cont inpt admission with sepsis, requires intubation, IV abx Patient new to my care. Old records reviewed and summarized as aboe. Care plan reviewed with Dr. Santana and multidisciplinary care team on rounds Subjective: no significant overnighte events, patient remains intubated and sedated Objective: Vital Signs Temp Pulse Resp BP Pulse Ox 38.6 C H 82 25 H 100/62 91 L 01/08/17 12:00 01/08/17 12:00 01/08/17 12:00 01/08/17 12:00 01/08/17 12:00 Microbiology 01/04/17 20:57 - Final Sputum, Induced/Suctioned Sputum Culture - Final MRSA Corynebacterium Striatum Laboratory Results 01/08/17 05:38 01/08/17 05:38 01/07/17 01/08/17 01/09/17 05:59 05:59 05:59 Intake Total 3221.5 2706.6 Output Total 1710 3075 Balance 1511.5 -368.4 PT 16.1 SEC (12.0-15.0) H 01/04/17 20:15 INR 1.29 (0.83-1.16) H 01/04/17 20:15 intubated sedated anicteric ett in place rrr no mrg coarse bs throughout soft nt nd no cce warm dry well perfused ICD10 Worksheet Patient Problems: Problems Problem Status Onset Methicillin resistant Staphylococcus aureus infection Acute ~01/04/17 Dyspnea Acute Chest pain Acute Chronic Diseaes Mgmt/Transitional Care Acute COPD exacerbation Acute Pneumonia Acute Hypoxemia Acute COPD (chronic obstructive pulmonary disease) Acute Severe sepsis Acute Respiratory failure Acute
[2017-01-08] MEDS ORDERED: LIDOCAINE 1% 300 MG/30 ML SDV MISC ONE (14:29)
[2017-01-08] MEDS ORDERED: LIDOCAINE 2% JELLY 5 ML TUBE TP ONE (14:29)
--- NOTE | 2017-01-08 17:05 | ASMTCMCOM ---
CM Note CM Note Notes: Spoke with Tanisha, the nurse manager poker for [employer] who was unable to find any other names than what she gave Joselito from our ethics team. She did fax patients "[employer]" information which has been placed in patient's medical record. Tanisha did ask if an employee of [employer] could serve as an MDPOA and her corporate office said no. We do not have any contact information for the children other than [employer] Wyatt thinks they might be in [place]. Patient states he does not know where his children are. Tanisha did talk to patient's therapist as well and he did not know where the children are and he did not know of any names of people who could possibly serve as MDPOA. CM will follow. Date Signed: 01/08/2017 05:05 PM Electronically Signed By:Ellen Glaser LCSW
[2017-01-08] MEDS: fentaNYL/NACL 100 ML IV SCH (18:26)
[2017-01-09] MEDS: ALBUTEROL 200 PUFFS/18 GM MDI IH SCH ×6 (00:15→19:49)
[2017-01-09] MEDS: INSULIN LISPRO 100 UNIT/ML SC SCH ×4 (01:07→18:01)
[2017-01-09] MEDS: VANCOMYCIN HCL/NORMAL SALINE 250 ML IV SCH ×2 (03:27→16:45)
[2017-01-09] MEDS: PROPOFOL/EMULSION 100 ML IV SCH ×2 (03:27→10:11)
[2017-01-09] MEDS: D5W 1,000 ML IV SCH (03:27)
[2017-01-09] MEDS: DEXMEDETOMIDINE IN 0.9 % NACL 100 ML IV SCH ×4 (03:27→20:29)
[2017-01-09 05:23] LABS: ADD DIFF? YES; ADD MORPH? NO; ADD SCAN? NO; ATYPICAL LYMPHOCYTE FLAG 20 (0-99); FRAGMENT RBC FLAG 0 (0-99); HEMATOCRIT 28.7 % (40.0-51.0); HEMOGLOBIN 9.3 g/dL (13.7-17.5); LEFT SHIFT FLG 50 (0-99); LIPEMIA HEMOLYSIS FLAG 80 (0-99); MEAN CELL HEMOGLOBIN 30.4 pg (27.9-34.1); MEAN CELL HEMOGLOBIN CONCENTR. 32.4 g/dL (32.4-36.7); MEAN CELL VOLUME 93.8 fL (81.5-99.8); MEAN PLATELET VOLUME 10.3 fL (8.7-11.7); PLATELET CLUMPS FLAG 0 (0-99); PLATELET COUNT 114 10^3/uL (150-400); RED BLOOD CELL COUNT 3.06 10^6/uL (4.40-6.38); RED CELL DISTRIBUTION WIDTH 14.7 % (11.5-15.2)
[2017-01-09 06:04] LABS: PLATELET ESTIMATE DECREASED (ADEQ); TOXIC GRANULATION PRESENT; TOXIC VACUOLIZATION PRESENT
[2017-01-09 06:18] LABS: ANION GAP 7 mEq/L (8-16); CARBON DIOXIDE 33 mEq/l (22-31); CHLORIDE 98 mEq/L (97-110); CREATININE 0.4 mg/dL (0.7-1.3); GLOMERULAR FILTRATION RATE > 60; GLUCOSE 146 mg/dL (70-100); MAGNESIUM 1.8 mg/dL (1.6-2.3); SODIUM 138 mEq/L (134-144)
[2017-01-09 06:41] LABS: POTASSIUM 4.2 mEq/L (3.5-5.2)
[2017-01-09] MEDS ORDERED: LORazepam 2 MG/ML INJ IV PRN (08:49)
[2017-01-09] MEDS: LORazepam 2 MG/ML INJ IVP PRN (08:57)
[2017-01-09] MEDS: ENOXAPARIN 40 MG/0.4 ML SYR SC SCH (09:08)
[2017-01-09] MEDS: methylPREDNISolone SOD SUCC 40 MG/ML VIAL IVP SCH (09:08)
[2017-01-09] MEDS: POTASSIUM CL 20 MEQ/15 ML UDCUP TUBE SCH (09:08)
[2017-01-09] MEDS: FAMOTIDINE 20 MG/NACL 50 ML IV SCH ×2 (09:08→20:42)
[2017-01-09] MEDS: CHLORHEXIDINE GLUCONATE 15 ML UDL PO SCH ×2 (09:08→19:23)
[2017-01-09] MEDS: NICOTINE 14 MG/24 HR PATCH TD SCH (09:09)
--- NOTE | 2017-01-09 09:14 | PCMIDPN ---
Assessment/Plan: Assessment/Plan: * Severe sepsis due to left-sided pneumonia with underlying tobacco and alcohol abuse: Remains off pressors with persistent fever. Repeat sputum with growth of both MRSA and Corynebacterium striatum. BAL from yesterday with 4+ Gram- positive rods which likely represents Corynebacterium which has been associated with severe pneumonia. Both organisms covered by vancomycin. Continue vancomycin with repeat trough assessment today. Patient also has positive urine Streptococcus pneumoniae antigen - unclear if initial illness due to Streptococcus pneumoniae or whether this represents false positive result. * Fever: Likely due to above although component of withdrawal also consideration. Will repeat blood cultures. 01/09/17 09:11 01/09/17 09:12 Subjective: Intubated and sedated with increasing O2 requirements overnight. Objective: Vital Signs Temp Pulse Resp BP Pulse Ox 37.6 C 87 24 H 98/75 L 94 01/09/17 08:00 01/09/17 08:00 01/09/17 08:00 01/09/17 08:00 01/09/17 08:00 Microbiology 01/08/17 15:45 Gram Stain - Final Lung Left Lower Lobe - Bronchial Washings Laboratory Results 01/09/17 05:00 01/09/17 05:00 01/08/17 01/09/17 01/10/17 05:59 05:59 05:59 Intake Total 2706.6 3849 Output Total 3075 1525 Balance -368.4 2324 Vancomycin # 4 Temperature maximum 38.7 FiO2 70% Chest x-ray with dense left-sided consolidation - Physical Exam General Appearance: other (Intubated, sedated) EENT: ET Tube, No scleral icterus Respiratory: respiratory distress (Increased respiratory effort and rate) Cardiac/Chest: regular rate, rhythm, No systolic murmur Extremities: No inflammation Abdomen: non-tender, other (Protuberant ostomy is pink), No distended Skin: No rash, No embolic lesions - Line/s LUE PICC Lines: No drainage, No erythema ICD10 Worksheet Patient Problems: Problems Problem Status Onset Methicillin resistant Staphylococcus aureus infection Acute ~01/04/17 Pneumonia Acute Respiratory failure Acute Severe sepsis Acute COPD (chronic obstructive pulmonary disease) Acute COPD exacerbation Acute Chest pain Acute Chronic Diseaes Mgmt/Transitional Care Acute Dyspnea Acute Hypoxemia Acute
[2017-01-09] MEDS: CHOLECALCIFEROL VIT D3 2,000 UNITS TAB/CAP PO SCH (09:24)
--- NOTE | 2017-01-09 09:53 | PDINTPN ---
Water Resource Project Manager Progress Note Assessment/Plan: Assessment/plan: 56 M who resides in [place] admitted 01/02/17 with hypoxia and pneumonia. He was initially listed as DNR but changed his mind during this admission. Initial therapy included levaquin, but his O2 requirement was growing and he was eventually treated with bipap the night of 01/03. However, at my initial eval early 01/04, he was markedly tachypneic and unable to answer questions, necessitating emergent intubation. His history also includes significant ETOH, for which he was getting scheduled Vodka and Librium. He is on chronic O2 at 6 lpm, but admission labs suggests chronic hypoxemia (elevated hct); and has CHF with an EF of only 35-40% on 01/02/17. His CXR prior to ETT looked similar in distribution but more consolidated. * Acute respiratory failure with hypoxemia and hypercapnia- 2/2 PNA with elevated procalcitonin. Scx with MRSA- now on vancomycin monotherapy. Bronch wash 01/08/17 with GPR (corynebacterium?). PCO2 of 55-60 is likely his baseline since he has had an elevated HCO3 for a long time and pH is normal. RR decreased. Continue efforts to wean FiO2 as tolerated, targeting sat 90-94%. HD# 7, vent day#5 * Hypotension- possible volume issue, and resolved. * ETOH- since he was getting Vodka daily prior to intubation, timing would be appropriate for this now. Will resume precedex drip in effort to reduce ativan requirement. DC fentanyl to avoid increased delerium. DC propofol and use precedex with prn ativan? * COPD by history- use albuterol/atrovent QID while on vent. Reduced solumedrol to 40/day on 01/06/17, dropped to 20/day 01/09. * CHF- he looked volume overloaded on paper so initially agreed to lasix, but drop in BP post ETT precluded diuresis. BNP was 742, so not too high. Albumin/ lasix given 01/07 without significant benefit. Will discuss further efforts with hospitalist later today * Dispo: On 01/04/17 he was unable to communicate 2/2 respiratory distress. I was told that he had discussed his MOST form and agreed to aggressive treatment , including intubation which was required at that time. I believe his situation is completely recoverable and would favor ongoing treatment. He may eventually need help identifying a decision maker. 01/08/17 09:57 01/09/17 09:50 Subjective: increasing agitation overnight. Objective: Vital Signs Temp Pulse Resp BP Pulse Ox 37.6 C 87 24 H 98/75 L 94 01/09/17 08:00 01/09/17 08:00 01/09/17 08:00 01/09/17 08:00 01/09/17 08:00 Microbiology 01/08/17 15:45 Gram Stain - Final Lung Left Lower Lobe - Bronchial Washings Laboratory Results 01/09/17 05:00 01/09/17 05:00 01/08/17 01/09/17 01/10/17 05:59 05:59 05:59 Intake Total 2706.6 3849 Output Total 3075 1525 Balance -368.4 2324 PT 16.1 SEC (12.0-15.0) H 01/04/17 20:15 INR 1.29 (0.83-1.16) H 01/04/17 20:15 Physical Exam - Physical Exam General Appearance: mild distress, other (inadequately sedated) EENT: PERRL/EOMI Neck: supple Respiratory: normal breath sounds, accessory muscle use, decreased breath sounds , No respiratory distress Cardiac/Chest: normal peripheral pulses, regular rate, rhythm, No edema Abdomen: non-tender, soft, No distended Skin: normal color, warm/dry, No cyanosis Lymphatic: no adenopathy Extremities: No pedal edema Neuro/Psych: cognition abnormalities, No abnormal 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
[2017-01-09] MEDS: fentaNYL/NACL 100 ML IV SCH (10:13)
[2017-01-09] MEDS ORDERED: MAGNESIUM SULF 1 GM/DEXTROSE 100 ML IV ONE (12:14)
[2017-01-09] MEDS: ACETAMINOPHEN 650 MG SUPP PR PRN (12:54)
[2017-01-09] MEDS: VANCOMYCIN 1.5 GM in D5W 250 ML IV SCH (16:59)
[2017-01-09] MEDS ORDERED: LORazepam 2 MG/ML INJ IVP PRN (17:01)
--- NOTE | 2017-01-09 17:05 | HOSPPROG ---
Hospitalist Progress Note Assessment/Plan: 56 yo M with hx of COPD presenting with acute on chronic respiratory failure #Acute on chronic resp failure: due to COPD exacerbation in setting of PNA. Fio2 now up to 70%. Continue current management, repeat cxr in am. #Strep pneumo (by urinary ag), MRSA (sputum culture) and corynebacterium(sputum ) PNA: Cont Vanc for now, ID following, blood cultures with ngtd. Continues to fever intermittently. #COPD: Ventolin/atrovent, steroids #Septic shock: off Levophed. Due to PNA. HD stable though BP remains soft #Leukocytosis: infection +/- steroids. Continues to trend down, now 14 from a max of 30 #DAVID: resolved, creatinine stable at 0.6 #h/o Etoh: cont Precedex and Ativan #Hypernatremia: due to insensible losses.Mild and stable on D5 # hyperglycemia: driven by steroids, stress, d5--continue SSI #tobacco use: nicotine patch DVT ppx: Lovenox FEN: continue TF, at goal. #Disp: cont inpt admission with sepsis, requires intubation, IV abx Care plan reviewed with Dr. Santana and multidisciplinary care team on rounds Subjective: no significant overnight events, patient remains intubated Objective: Vital Signs Temp Pulse Resp BP Pulse Ox 38.3 C 66 24 H 106/73 98 01/09/17 15:00 01/09/17 15:00 01/09/17 15:00 01/09/17 15:00 01/09/17 15:00 Microbiology 01/08/17 15:45 Gram Stain - Final Lung Left Lower Lobe - Bronchial Washings Laboratory Results 01/09/17 05:00 01/09/17 05:00 01/08/17 01/09/17 01/10/17 05:59 05:59 05:59 Intake Total 2706.6 3849 Output Total 3075 1525 Balance -368.4 2324 PT 16.1 SEC (12.0-15.0) H 01/04/17 20:15 INR 1.29 (0.83-1.16) H 01/04/17 20:15 intubated sedated anicteric ett in place rrr no mrg coarse bs throughout soft nt nd no cce warm dry well perfused ICD10 Worksheet Patient Problems: Problems Problem Status Onset Methicillin resistant Staphylococcus aureus infection Acute ~01/04/17 Pneumonia Acute Respiratory failure Acute Severe sepsis Acute COPD (chronic obstructive pulmonary disease) Acute COPD exacerbation Acute Chest pain Acute Chronic Diseaes Mgmt/Transitional Care Acute Dyspnea Acute Hypoxemia Acute
[2017-01-09] MEDS: LORazepam 2 MG/ML INJ IV SCH ×2 (18:01→20:42)
[2017-01-09] MEDS ORDERED: PROTOCOL MAGNESIUM 1 DOSE IV PRN (19:39)
[2017-01-09] MEDS ORDERED: PROTOCOL K PHOSPHATE 1 DOSE IV PRN (19:39)
[2017-01-09] MEDS ORDERED: PROTOCOL POTASSIUM 1 DOSE MISC PRN (19:39)
[2017-01-09] MEDS ORDERED: PROTOCOL CALCIUM 1 DOSE IV PRN (19:39)
[2017-01-09] MEDS: IPRATROPIUM HFA INHALER IH SCH (19:52)
[2017-01-10] MEDS: ALBUTEROL 200 PUFFS/18 GM MDI IH SCH ×7 (00:26→23:19)
[2017-01-10] MEDS: INSULIN LISPRO 100 UNIT/ML SC SCH ×4 (00:39→16:30)
[2017-01-10] MEDS: PROPOFOL/EMULSION 100 ML IV SCH ×4 (00:40→19:04)
[2017-01-10] MEDS: LORazepam 2 MG/ML INJ IV SCH ×6 (00:40→21:48)
[2017-01-10] MEDS: ACETAMINOPHEN 650 MG/20.3 ML UDCUP PO PRN ×3 (02:57→20:12)
[2017-01-10] MEDS: IPRATROPIUM HFA INHALER IH SCH ×4 (03:47→19:09)
[2017-01-10 04:05] LABS: ADD DIFF? YES; ADD MORPH? NO; ADD SCAN? NO; ATYPICAL LYMPHOCYTE FLAG 10 (0-99); FRAGMENT RBC FLAG 0 (0-99); HEMATOCRIT 29.6 % (40.0-51.0); HEMOGLOBIN 9.6 g/dL (13.7-17.5); LEFT SHIFT FLG 40 (0-99); LIPEMIA HEMOLYSIS FLAG 80 (0-99); MEAN CELL HEMOGLOBIN 30.2 pg (27.9-34.1); MEAN CELL HEMOGLOBIN CONCENTR. 32.4 g/dL (32.4-36.7); MEAN CELL VOLUME 93.1 fL (81.5-99.8); MEAN PLATELET VOLUME 10.4 fL (8.7-11.7); PLATELET CLUMPS FLAG 0 (0-99); PLATELET COUNT 162 10^3/uL (150-400); RED BLOOD CELL COUNT 3.18 10^6/uL (4.40-6.38); RED CELL DISTRIBUTION WIDTH 14.6 % (11.5-15.2)
[2017-01-10 04:23] LABS: ANION GAP 5 mEq/L (8-16); CALCIUM 8.8 mg/dL (8.5-10.4); CARBON DIOXIDE 37 mEq/l (22-31); CHLORIDE 96 mEq/L (97-110); CREATININE 0.4 mg/dL (0.7-1.3); GLOMERULAR FILTRATION RATE > 60; GLUCOSE 120 mg/dL (70-100); POTASSIUM 4.1 mEq/L (3.5-5.2); SODIUM 138 mEq/L (134-144)
[2017-01-10] MEDS: VANCOMYCIN 1.5 GM in D5W 250 ML IV SCH ×2 (04:25→16:25)
[2017-01-10] MEDS: fentaNYL/NACL 100 ML IV SCH ×2 (04:25→20:13)
[2017-01-10 04:39] LABS: HYPOCHROMIA 1+; PLATELET ESTIMATE ADEQUATE (ADEQ); STOMATOCYTES 1+
[2017-01-10 05:07] LABS: ASSIST CONTROL YES; BASE EXCESS 7.7 mEq/L (-2.5-2.5); BICARBONATE 32 mEq/L (22-26); MEASURED OXYGEN SATURATION 95 % (92-95); O2 CONCENTRATIION 60 % (0-100); P/F RATIO 137 RATIO; PCO2 49 mmHg (34-38); PO2 82 mmHg (65-75); TCO2 33 mEq/L (23-27)
[2017-01-10 05:08] LABS: TOTAL RATE 28
[2017-01-10] MEDS ORDERED: ACETAMINOPHEN 650 MG/20.3 ML UDCUP TUBE ONE (05:51)
[2017-01-10] MEDS ORDERED: CLINDAMYCIN 900 MG/DEXTROSE 50 ML IV SCH (07:30)
[2017-01-10] MEDS: POTASSIUM CL 20 MEQ/15 ML UDCUP TUBE SCH (08:38)
[2017-01-10] MEDS: NICOTINE 14 MG/24 HR PATCH TD SCH (08:38)
[2017-01-10] MEDS: ENOXAPARIN 40 MG/0.4 ML SYR SC SCH (08:40)
[2017-01-10] MEDS: CHLORHEXIDINE GLUCONATE 15 ML UDL PO SCH ×2 (08:40→20:13)
[2017-01-10] MEDS: CHOLECALCIFEROL VIT D3 2,000 UNITS TAB/CAP PO SCH (08:40)
[2017-01-10] MEDS: FAMOTIDINE 20 MG/NACL 50 ML IV SCH ×2 (08:41→20:13)
[2017-01-10] MEDS: methylPREDNISolone SOD SUCC 40 MG/ML VIAL IVP SCH (08:41)
[2017-01-10 10:26] LABS: ALBUMIN 2.3 g/dL (3.5-5.0); BILIRUBIN,TOTAL 0.9 mg/dL (0.1-1.4); BILIRUBIN-CONJUGATED 0.6 mg/dL (0.0-0.5); BILIRUBIN-UNCONJUGATED 0.3 mg/dL (0.0-1.1); TOTAL PROTEIN 5.7 g/dL (6.3-8.2)
--- NOTE | 2017-01-10 10:58 | PCMIDPN ---
Assessment/Plan: Assessment/Plan: * Severe sepsis due to left-sided pneumonia with underlying tobacco and alcohol abuse: Recurrent high-grade fever and persistent leukocytosis. Repeat CT scan shows dense consolidation on left side. Suspect ongoing fever may be related to poor penetration of antibiotics into densely consolidated lung. Likely both MRSA and Corynebacterium contributing. Vancomycin dose increased yesterday based on trough findings. Plan repeat trough tomorrow. Agree with empiric levofloxacin and clindamycin which was resumed pending additional culture data. * Fever: See above discussion. Repeat blood cultures are pending. Drug fever also consideration related to vancomycin use although relatively early in treatment course. Will check LFTs as these often can be increased with vancomycin hypersensitivity. 01/10/17 10:54 Subjective: Patient with high-grade fever over last 24 hr. No significant diarrhea noted. Objective: Vital Signs Temp Pulse Resp BP Pulse Ox 39.4 C H 117 H 24 H 102/58 L 89 L 01/10/17 09:51 01/10/17 09:51 01/10/17 09:51 01/10/17 09:51 01/10/17 09:51 Microbiology 01/04/17 20:45 Blood Culture - Final Blood 01/04/17 20:15 Blood Culture - Final Blood 01/08/17 15:45 Mycobacterial Smear (KATHLEEN) - Final Lung Left Lower Lobe - Bronchial Washings 01/08/17 15:45 Gram Stain - Final Lung Left Lower Lobe - Bronchial Washings Laboratory Results 01/10/17 03:45 01/10/17 03:45 01/09/17 01/10/17 01/11/17 05:59 05:59 05:59 Intake Total 3849 2401 Output Total 1525 1605 60 Balance 2324 796 -60 Vancomycin # 5 T-max 39.5 degrees BAL 01/07/2017 MRSA with vancomycin KATHLEEN 1, Corynebacterium striatum Blood cultures 01/08/2017 and 01/09/2017 pending - Physical Exam General Appearance: other (Intubated, sedated) EENT: ET Tube, No scleral icterus Respiratory: coarse breath sounds Cardiac/Chest: tachycardia Extremities: No inflammation Abdomen: non-tender, distended (Mild), other (protruberant ostomy which is pink) Skin: No rash ICD10 Worksheet Patient Problems: Problems Problem Status Onset Methicillin resistant Staphylococcus aureus infection Acute ~01/04/17 Pneumonia Acute Respiratory failure Acute Severe sepsis Acute COPD (chronic obstructive pulmonary disease) Acute COPD exacerbation Acute Chest pain Acute Chronic Diseaes Mgmt/Transitional Care Acute Dyspnea Acute Hypoxemia Acute
--- NOTE | 2017-01-10 14:13 | PDINTPN ---
Transportation Aid Progress Note Assessment/Plan: Assessment/plan: 56 M who resides in [place] admitted 01/02/17 with hypoxia and pneumonia. He was initially listed as DNR but changed his mind during this admission. Initial therapy included levaquin, but his O2 requirement was growing and he was eventually treated with bipap the night of 01/03. However, at my initial eval early 01/04, he was markedly tachypneic and unable to answer questions, necessitating emergent intubation. His history also includes significant ETOH, for which he was getting scheduled Vodka and Librium. He is on chronic O2 at 6 lpm, but admission labs suggests chronic hypoxemia (elevated hct); and has CHF with an EF of only 35-40% on 01/02/17. His CXR prior to ETT looked similar in distribution but more consolidated. * Acute respiratory failure with hypoxemia and hypercapnia- 2/2 PNA with elevated procalcitonin. Scx with MRSA- was on clinda, levaquin and vanco, but reduced to vanco monotherapy with subsequent worsening so restarted clinda/ levequin 01/10 and discussed with ID. Bronch wash 01/08/17 with GPR ( corynebacterium). CT chest 01/10 shows dense consolidation of left lung without abscess or necrosis at this point. PCO2 of 55-60 is likely his baseline since he has had an elevated HCO3 for a long time and pH is normal. RR decreased. Continue efforts to wean FiO2 as tolerated, targeting sat 90-94%. HD#8, vent day #6 * Hypotension- possible volume issue, and resolved- though his BP remains "soft " * ETOH- since he was getting Vodka daily prior to intubation, timing would be appropriate for this now. Will resume precedex drip in effort to reduce ativan requirement. DC fentanyl to avoid increased delerium. DC propofol and use precedex with prn ativan? Precedex apparently less helpful than propofol * COPD by history- use albuterol/atrovent QID while on vent. Reduced solumedrol to 40/day on 01/06/17, dropped to 20/day 01/09. * CHF- he looked volume overloaded on paper so initially agreed to lasix, but drop in BP post ETT precluded diuresis. BNP was 742, so not too high. Albumin/ lasix given 01/07 without significant benefit. holding diuretics * Dispo: On 01/04/17 he was unable to communicate 2/2 respiratory distress. I was told that he had discussed his MOST form and agreed to aggressive treatment , including intubation which was required at that time. I believe his situation is completely recoverable and would favor ongoing treatment. He may eventually need help identifying a decision maker, particularly if he ends up requiring a trach. We'll know better after the next 2-3 days. * critical care 45 minutes including bedside assessment, team discussions, in a critically ill patient 01/10/17 14:13 Subjective: Increased FiO2 overnight, high fever and increasing wbc Objective: Vital Signs Temp Pulse Resp BP Pulse Ox 39.3 C H 115 H 24 H 93/75 L 91 L 01/10/17 12:00 01/10/17 12:00 01/10/17 12:00 01/10/17 12:00 01/10/17 12:00 Microbiology 01/08/17 15:45 Gram Stain - Final Lung Left Lower Lobe - Bronchial Washings 01/04/17 20:45 Blood Culture - Final Blood 01/04/17 20:15 Blood Culture - Final Blood 01/08/17 15:45 Mycobacterial Smear (KATHLEEN) - Final Lung Left Lower Lobe - Bronchial Washings Laboratory Results 01/10/17 03:45 01/10/17 03:45 01/09/17 01/10/17 01/11/17 05:59 05:59 05:59 Intake Total 3849 2401 Output Total 1525 1605 160 Balance 2324 796 -160 PT 16.1 SEC (12.0-15.0) H 01/04/17 20:15 INR 1.29 (0.83-1.16) H 01/04/17 20:15 Physical Exam - Physical Exam General Appearance: no apparent distress EENT: PERRL/EOMI, ET tube Neck: supple Respiratory: decreased breath sounds, No respiratory distress, No rhonchi, No wheezing Cardiac/Chest: regular rate, rhythm, No edema Abdomen: non-tender, soft, No distended Skin: normal color, warm/dry, No cyanosis Lymphatic: no adenopathy Extremities: No pedal edema Neuro/Psych: cognition abnormalities, 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
[2017-01-10] MEDS: CLINDAMYCIN 600 MG/DEXTROSE 50 ML IV SCH ×2 (14:29→21:49)
--- NOTE | 2017-01-10 16:25 | HOSPPROG ---
Hospitalist Progress Note Assessment/Plan: 56 yo M with hx of COPD presenting with acute on chronic respiratory failure #Acute on chronic resp failure: due to COPD exacerbation in setting of PNA. Fio2 now up to 70%. Not showing a lot of improvement thus far. Repeat cxr and chest CT personally reviewed with continued dense AUREA consolidation with underlying emphysema and airways disease. #Strep pneumo (by urinary ag), MRSA (sputum culture) and corynebacterium(sputum ) PNA: continued high grade fevers despite Vanc which should be adequate coverage. Per ID, may be due to poor lung penetration given density of consolidation. Clinda and levaquin added given ongoing fever pending culture finalization. #COPD: Ventolin/atrovent, steroid taper--currently on 20 methylpred daily #Septic shock: off Levophed. Due to PNA. HD stable though BP remains soft #Leukocytosis: infection +/- steroids. Has remained elevated for days, increased slightly again today to 18 from 14 (max of 30) #DAVID: resolved, creatinine stable at 0.6 #h/o Etoh: cont Precedex and Ativan #Hypernatremia: due to insensible losses.Mild and stable on D5 # hyperglycemia: driven by steroids, stress, d5--continue SSI #tobacco use: nicotine patch DVT ppx: Lovenox FEN: continue TF, at goal. Dispo: lives in [place] prior to admission, does not have family involved in his care and if continues to fail to improve will need to find proxy decision maker , will ask ethics to consult in am #Disp: cont inpt admission with sepsis, requires intubation, IV abx Care plan reviewed with Dr. Santana and multidisciplinary care team on rounds Subjective: no significant overnight events, patient remains intubated, sedated , continues to fever Objective: Vital Signs Temp Pulse Resp BP Pulse Ox 38.7 C H 114 H 24 H 130/63 H 90 L 01/10/17 14:00 01/10/17 14:00 01/10/17 14:00 01/10/17 14:00 01/10/17 14:00 Microbiology 01/08/17 15:45 Gram Stain - Final Lung Left Lower Lobe - Bronchial Washings 01/04/17 20:45 Blood Culture - Final Blood 01/04/17 20:15 Blood Culture - Final Blood 01/08/17 15:45 Mycobacterial Smear (KATHLEEN) - Final Lung Left Lower Lobe - Bronchial Washings Laboratory Results 01/10/17 03:45 01/10/17 03:45 01/09/17 01/10/17 01/11/17 05:59 05:59 05:59 Intake Total 3849 2401 184 Output Total 1525 1605 160 Balance 2324 796 24 PT 16.1 SEC (12.0-15.0) H 01/04/17 20:15 INR 1.29 (0.83-1.16) H 01/04/17 20:15 intubated sedated anicteric ett in place rrr no mrg coarse bs throughout soft nt nd no cce warm dry well perfused ICD10 Worksheet Patient Problems: Problems Problem Status Onset Methicillin resistant Staphylococcus aureus infection Acute ~01/04/17 Pneumonia Acute Respiratory failure Acute Severe sepsis Acute COPD (chronic obstructive pulmonary disease) Acute COPD exacerbation Acute Chest pain Acute Chronic Diseaes Mgmt/Transitional Care Acute Dyspnea Acute Hypoxemia Acute
--- NOTE | 2017-01-10 17:13 | ASMTCMCOM ---
CM Note CM Note Notes: Ethics contacted an asked to come in Wednesday to determine decision making. Date Signed: 01/10/2017 05:12 PM Electronically Signed By:Gerri Graham LCSW
[2017-01-11] MEDS: INSULIN LISPRO 100 UNIT/ML SC SCH ×4 (00:28→17:31)
[2017-01-11] MEDS: LORazepam 2 MG/ML INJ IV SCH ×6 (02:57→21:39)
[2017-01-11] MEDS: IPRATROPIUM HFA INHALER IH SCH ×4 (03:20→21:11)
[2017-01-11] MEDS: ALBUTEROL 200 PUFFS/18 GM MDI IH SCH ×6 (03:20→23:24)
[2017-01-11 04:41] LABS: ADD DIFF? YES; ADD MORPH? NO; ADD SCAN? NO; ATYPICAL LYMPHOCYTE FLAG 0 (0-99); FRAGMENT RBC FLAG 0 (0-99); LEFT SHIFT FLG 40 (0-99); LIPEMIA HEMOLYSIS FLAG 80 (0-99); MEAN CELL HEMOGLOBIN 29.7 pg (27.9-34.1); MEAN CELL HEMOGLOBIN CONCENTR. 32.1 g/dL (32.4-36.7); MEAN CELL VOLUME 92.4 fL (81.5-99.8); MEAN PLATELET VOLUME 10.4 fL (8.7-11.7); PLATELET CLUMPS FLAG 0 (0-99); PLATELET COUNT 193 10^3/uL (150-400); RED BLOOD CELL COUNT 3.03 10^6/uL (4.40-6.38); RED CELL DISTRIBUTION WIDTH 14.5 % (11.5-15.2)
[2017-01-11] MEDS: VANCOMYCIN 1.5 GM in D5W 250 ML IV SCH ×2 (04:41→16:15)
[2017-01-11 05:07] LABS: ANION GAP 6 mEq/L (8-16); CALCIUM 8.8 mg/dL (8.5-10.4); CARBON DIOXIDE 37 mEq/l (22-31); CHLORIDE 96 mEq/L (97-110); CREATININE 0.5 mg/dL (0.7-1.3); GLOMERULAR FILTRATION RATE > 60; GLUCOSE 119 mg/dL (70-100); POTASSIUM 4.2 mEq/L (3.5-5.2); SODIUM 139 mEq/L (134-144)
[2017-01-11 05:43] LABS: PLATELET ESTIMATE ADEQUATE (ADEQ)
[2017-01-11 05:44] LABS: HYPOCHROMIA 1+; LARGE PLATELETS PRESENT; MICROCYTES 1+; POLYCHROMASIA 1+
[2017-01-11] MEDS: CLINDAMYCIN 600 MG/DEXTROSE 50 ML IV SCH ×3 (06:03→21:38)
[2017-01-11] MEDS: POTASSIUM CL 20 MEQ/15 ML UDCUP TUBE SCH (08:05)
[2017-01-11] MEDS: CHLORHEXIDINE GLUCONATE 15 ML UDL PO SCH ×2 (08:05→20:05)
[2017-01-11] MEDS: methylPREDNISolone SOD SUCC 40 MG/ML VIAL IVP SCH (08:05)
[2017-01-11] MEDS: FAMOTIDINE 20 MG/NACL 50 ML IV SCH (08:06)
[2017-01-11] MEDS: ENOXAPARIN 40 MG/0.4 ML SYR SC SCH (08:06)
[2017-01-11] MEDS: CHOLECALCIFEROL VIT D3 2,000 UNITS TAB/CAP PO SCH (08:08)
[2017-01-11] MEDS: NICOTINE 14 MG/24 HR PATCH TD SCH (08:09)
[2017-01-11] MEDS: FAMOTIDINE 20 MG TAB TUBE SCH ×2 (10:47→20:02)
[2017-01-11] MEDS: ACETAMINOPHEN 650 MG/20.3 ML UDCUP PO PRN ×2 (10:49→20:01)
--- NOTE | 2017-01-11 11:16 | PCMIDPN ---
Assessment/Plan: Assessment: Pneumonia with respiratory failure. Patient continues to be intubated well as having ongoing fevers. [place] that significant consolidation the upper lobe is responsible for the ongoing inflammatory cycles. RSA and rafa bacterium striatum should be covered with current regimen notably vancomycin. Vancomycin dose increased 2 days ago. Will recheck trough level today. Plan: 1. Continue vancomycin, Levaquin and clindamycin. 2. follow up on sensitivities of the Staph aureus. 3. Follow respiratory status. Subjective: Patient remains intubated and sedated. Continued fevers. Continued copious secretions from his ET tube. Objective: Vancomycin # 6 Levaquin # 9 Clindamycin # 8 Vital Signs Temp Pulse Resp BP Pulse Ox 38.8 C H 133 H 24 H 171/70 H 90 L 01/11/17 11:07 01/11/17 11:07 01/11/17 11:07 01/11/17 11:07 01/11/17 11:07 Microbiology 01/08/17 15:45 Gram Stain - Final Lung Left Lower Lobe - Bronchial Washings 01/04/17 20:45 Blood Culture - Final Blood 01/04/17 20:15 Blood Culture - Final Blood Laboratory Results 01/11/17 04:30 01/11/17 04:30 01/10/17 01/11/17 01/12/17 05:59 05:59 05:59 Intake Total 2401 2518 Output Total 1605 2100 Balance 796 418 - Physical Exam General Appearance: WD/WN, apparent distress (Moderate respiratory), toxic, No alert Respiratory: coarse breath sounds, other (ET tube in place. Copious secretions. ), No lungs clear, No wheezing Cardiac/Chest: regular rate, rhythm, tachycardia Extremities: non-tender, normal inspection Skin: normal color, warm/dry, No rash ICD10 Worksheet Patient Problems: Problems Problem Status Onset Methicillin resistant Staphylococcus aureus infection Acute ~01/04/17 Pneumonia Acute Respiratory failure Acute Severe sepsis Acute COPD (chronic obstructive pulmonary disease) Acute COPD exacerbation Acute Chest pain Acute Chronic Diseaes Mgmt/Transitional Care Acute Dyspnea Acute Hypoxemia Acute
--- NOTE | 2017-01-11 11:17 | PDINTPN ---
[employer] Progress Note Assessment/Plan: Assessment: 56 M who resides in [place] admitted 01/02/17 with hypoxia and pneumonia. He was initially listed as DNR but changed his mind during this admission. Initial therapy included levaquin, but his O2 requirement was growing and he was eventually treated with bipap the night of 01/03. However, at my initial eval early 01/04, he was markedly tachypneic and unable to answer questions, necessitating emergent intubation. His history also includes significant ETOH, for which he was getting scheduled Vodka and Librium. He is on chronic O2 at 6 lpm, but admission labs suggests chronic hypoxemia (elevated hct); and has CHF with an EF of only 35-40% on 01/02/17. His CXR prior to ETT looked similar in distribution but more consolidated. * Acute respiratory failure with hypoxemia and hypercapnia- 2/2 Exensive PNA with elevated procalcitonin, as well as significant underlying emphysema. Scx with MRSA- was on clinda, levaquin and vanco, but reduced to vanco monotherapy with subsequent worsening so restarted clinda/levequin 01/10 and discussed with ID. Bronch wash 01/08/17 with GPR (corynebacterium). CT chest 01/10 shows dense consolidation of left lung without abscess or necrosis at this point. PCO2 of 55 -60 is likely his baseline since he has had an elevated HCO3 for a long time and pH is normal. RR decreased. Continue efforts to wean FiO2 as tolerated, targeting sat 90-94%. Vent day#7 * Hypotension- possible volume issue, and resolved- though his BP remains "soft " * ETOH- since he was getting Vodka daily prior to intubation but has been off since, should be past the point of severe withdrawal. On propofol, fentanyl. * COPD by history- use albuterol/atrovent QID while on vent. Reduced solumedrol to 40/day on 01/06/17, dropped to 20/day 01/09. * CHF-Positive fluid balance last few days * Dispo: On 01/04/17 he was unable to communicate 2/2 respiratory distress. He agreed to aggressive treatment, including intubation which was required at that time. I believe his situation is potentially recoverable and would favor ongoing treatment. He may eventually need help identifying a decision maker, particularly if he ends up requiring a trach. Plan: Continue Vancomycin, Levaquin clindamycin. Will continue mechanical ventilation for now. I would consider a bronchoscopy for LLL bronchus occlusion , likely due to mucous, although he's expectorating well. 01/11/17 14:00 Subjective: Intubated, sedated Objective: Vital Signs Temp Pulse Resp BP Pulse Ox 38.8 C H 133 H 24 H 171/70 H 90 L 01/11/17 11:07 01/11/17 11:07 01/11/17 11:07 01/11/17 11:07 01/11/17 11:07 Microbiology 01/08/17 15:45 Gram Stain - Final Lung Left Lower Lobe - Bronchial Washings 01/04/17 20:45 Blood Culture - Final Blood 01/04/17 20:15 Blood Culture - Final Blood Laboratory Results 01/11/17 04:30 01/11/17 04:30 01/10/17 01/11/17 01/12/17 05:59 05:59 05:59 Intake Total 2401 2518 Output Total 1605 2100 Balance 796 418 PT 16.1 SEC (12.0-15.0) H 01/04/17 20:15 INR 1.29 (0.83-1.16) H 01/04/17 20:15 CT Chest 01/10: Moderate-severe emphysema. Extensive AUREA consolidation. LLL bronchus occluded. Small left effusion. Images reviewed by me. Physical Exam - Physical Exam General Appearance: alert, no apparent distress EENT: normal ENT inspection Neck: normal inspection Respiratory: decreased breath sounds, crackles (left base) Cardiac/Chest: regular rate, rhythm, No edema Abdomen: normal bowel sounds, non-tender, soft Skin: normal color, warm/dry Extremities: normal inspection Neuro/Psych: No alert (sedated), No oriented x 3 ICD10 Worksheet Patient Problems: Problems Problem Status Onset Methicillin resistant Staphylococcus aureus infection Acute ~01/04/17 Pneumonia Acute Respiratory failure Acute Severe sepsis Acute COPD (chronic obstructive pulmonary disease) Acute COPD exacerbation Acute Chest pain Acute Chronic Diseaes [facility]/Transitional Care Acute Dyspnea Acute Hypoxemia Acute
[2017-01-11] MEDS: PROPOFOL/EMULSION 100 ML IV SCH ×2 (12:32→20:05)
--- NOTE | 2017-01-11 14:01 | HOSPPROG ---
Hospitalist Progress Note Assessment/Plan: 56 yo M with hx of COPD presenting with acute on chronic respiratory failure #Acute on chronic resp failure: due to lobar pneumonia. Fio2 now up to 70%. Not showing a lot of improvement thus far. Repeat cxr and chest CT personally reviewed with continued dense AUREA consolidation with underlying emphysema and airways disease. * Antibiotics changed yesterday per ID * May just take some time #Strep pneumo (by urinary ag), MRSA (sputum culture) and corynebacterium(sputum ) PNA:. Per ID, may be due to poor lung penetration given density of consolidation. Clinda and levaquin added given ongoing fever pending culture finalization. #COPD: Ventolin/atrovent, steroid taper--currently on 20 methylpred daily #Septic shock: off Levophed. Due to PNA. HD stable though BP remains soft #Leukocytosis: infection +/- steroids. Stable but elevated #DAVID: resolved, creatinine stable at 0.6 #h/o Etoh: cont Precedex and Ativan #Hypernatremia: Resolved * Increase free water if sodium goes up * # hyperglycemia: driven by steroids, stress * Add a little bit of Lantus #tobacco use: nicotine patch DVT ppx: Lovenox FEN: continue TF, at goal. Dispo: lives in [place] prior to admission, does not have family involved in his care and if continues to fail to improve will need to find proxy decision maker * Ethics following #Disp: cont inpt admission with sepsis, requires intubation, IV abx Subjective: Episodes of tachypnea still with fever Objective: Vital Signs Temp Pulse Resp BP Pulse Ox 37.9 C 83 24 H 77/52 L 97 01/11/17 13:19 01/11/17 13:19 01/11/17 13:19 01/11/17 13:19 01/11/17 13:19 Microbiology 01/08/17 15:45 Gram Stain - Final Lung Left Lower Lobe - Bronchial Washings 01/04/17 20:45 Blood Culture - Final Blood 01/04/17 20:15 Blood Culture - Final Blood Laboratory Results 01/11/17 04:30 01/11/17 04:30 01/10/17 01/11/17 01/12/17 05:59 05:59 05:59 Intake Total 2401 2518 Output Total 1605 2100 Balance 796 418 PT 16.1 SEC (12.0-15.0) H 01/04/17 20:15 INR 1.29 (0.83-1.16) H 01/04/17 20:15 Discussed with pulmonary critical care - Physical Exam Constitutional: no apparent distress, appears nourished, not in pain Eyes: anicteric sclera Cardiovascular: regular rate and rhythym, edema (1+ upper extremity) Respiratory: no respiratory distress, No expiratory wheeze, No inspiratory crackles Gastrointestinal: normoactive bowel sounds, soft, non-tender abdomen, no palpable masses Skin: warm Neurologic: other (Sedated) ICD10 Worksheet Patient Problems: Problems Problem Status Onset Methicillin resistant Staphylococcus aureus infection Acute ~01/04/17 Pneumonia Acute Respiratory failure Acute Severe sepsis Acute COPD (chronic obstructive pulmonary disease) Acute COPD exacerbation Acute Chest pain Acute Chronic Diseaes Mgmt/Transitional Care Acute Dyspnea Acute Hypoxemia Acute
[2017-01-11] MEDS: fentaNYL/NACL 100 ML IV SCH (20:01)
[2017-01-11] MEDS: INSULIN GLARGINE 100 UNITS/ML SYRINGE SC SCH (20:02)
[2017-01-12] MEDS: INSULIN LISPRO 100 UNIT/ML SC SCH ×5 (00:02→21:54)
[2017-01-12] MEDS: LORazepam 2 MG/ML INJ IV SCH ×3 (01:23→09:07)
[2017-01-12] MEDS: VANCOMYCIN 1.5 GM in D5W 250 ML IV SCH ×2 (03:50→16:42)
[2017-01-12] MEDS: PROPOFOL/EMULSION 100 ML IV SCH ×2 (03:51→14:17)
[2017-01-12 04:29] LABS: % IMMATURE GRANULYOCYTES 1.5 % (0.0-1.1); ABSOLUTE IMMATURE GRANULOCYTES 0.19 10^3/uL (0.00-0.10); ADD DIFF? NO; ADD MORPH? NO; ADD SCAN? NO; ATYPICAL LYMPHOCYTE FLAG 0 (0-99); FRAGMENT RBC FLAG 0 (0-99); HEMATOCRIT 22.1 % (40.0-51.0); HEMOGLOBIN 7.3 g/dL (13.7-17.5); LEFT SHIFT FLG 10 (0-99); LIPEMIA HEMOLYSIS FLAG 80 (0-99); MEAN CELL HEMOGLOBIN 30.5 pg (27.9-34.1); MEAN CELL VOLUME 92.5 fL (81.5-99.8); MEAN PLATELET VOLUME 10.1 fL (8.7-11.7); PLATELET CLUMPS FLAG 10 (0-99); PLATELET COUNT 206 10^3/uL (150-400); RED BLOOD CELL COUNT 2.39 10^6/uL (4.40-6.38); RED CELL DISTRIBUTION WIDTH 14.8 % (11.5-15.2)
[2017-01-12] MEDS: ALBUTEROL 200 PUFFS/18 GM MDI IH SCH ×6 (04:41→23:40)
[2017-01-12] MEDS: IPRATROPIUM HFA INHALER IH SCH ×4 (04:41→20:16)
[2017-01-12 04:48] LABS: ANION GAP 6 mEq/L (8-16); CALCIUM 8.2 mg/dL (8.5-10.4); CARBON DIOXIDE 33 mEq/l (22-31); CHLORIDE 94 mEq/L (97-110); CREATININE 0.5 mg/dL (0.7-1.3); GLOMERULAR FILTRATION RATE > 60; GLUCOSE 340 mg/dL (70-100); POTASSIUM 3.8 mEq/L (3.5-5.2); SODIUM 133 mEq/L (134-144)
[2017-01-12 04:56] LABS: BASE EXCESS 9.4 mEq/L (-2.5-2.5); BICARBONATE 35 mEq/L (22-26); MEASURED OXYGEN SATURATION 94 % (92-95); PCO2 56 mmHg (34-38); PO2 79 mmHg (65-75); TCO2 36 mEq/L (23-27)
[2017-01-12 04:57] LABS: END TIDAL CO2 30; O2 CONCENTRATIION 70 % (0-100); P/F RATIO 113 RATIO; PATIENT RATE 20; PRESSURE SUPPORT 7; SIMV YES
[2017-01-12] MEDS: CLINDAMYCIN 600 MG/DEXTROSE 50 ML IV SCH ×3 (05:19→21:47)
[2017-01-12] MEDS: ENOXAPARIN 40 MG/0.4 ML SYR SC SCH (09:06)
[2017-01-12] MEDS: methylPREDNISolone SOD SUCC 40 MG/ML VIAL IVP SCH (09:06)
[2017-01-12] MEDS: NICOTINE 14 MG/24 HR PATCH TD SCH (09:07)
[2017-01-12] MEDS: CHOLECALCIFEROL VIT D3 2,000 UNITS TAB/CAP PO SCH (09:09)
[2017-01-12] MEDS: FAMOTIDINE 20 MG TAB TUBE SCH ×2 (09:09→23:17)
[2017-01-12] MEDS: POTASSIUM CL 20 MEQ/15 ML UDCUP TUBE SCH (09:09)
[2017-01-12] MEDS: CHLORHEXIDINE GLUCONATE 15 ML UDL PO SCH ×2 (09:10→21:48)
[2017-01-12] MEDS ORDERED: LIDOCAINE 2% JELLY 5 ML TUBE TP ONE (11:11)
[2017-01-12] MEDS ORDERED: LIDOCAINE 1% 300 MG/30 ML SDV MISC ONE (11:11)
--- NOTE | 2017-01-12 12:36 | HOSPPROG ---
Hospitalist Progress Note Assessment/Plan: 56 yo M with hx of COPD presenting with acute on chronic respiratory failure #Acute on chronic resp failure: due to lobar pneumonia. Fio2 now up to 70%. Not showing a lot of improvement thus far. Repeat cxr and chest CT personally reviewed with continued dense AUREA consolidation with underlying emphysema and airways disease. * Antibiotics changed recently per ID * Will try a little bit of diuresis * May just take some time #Strep pneumo (by urinary ag), MRSA (sputum culture) and corynebacterium(sputum ) PNA:. Per ID, may be due to poor lung penetration given density of consolidation. Clinda and levaquin added given ongoing fever pending culture finalization. # drop in hemoglobin * Will watch #COPD: Ventolin/atrovent, steroid taper--currently on 20 methylpred daily #Septic shock: Resolved #Leukocytosis: infection +/- steroids. Stable but elevated #DAVID: resolved, creatinine stable at 0.6 #h/o Etoh: Resolved #Hypernatremia: Resolved * Increase free water if sodium goes up * # hyperglycemia: driven by steroids, stress * Add a little bit of Lantus #tobacco use: nicotine patch DVT ppx: Lovenox FEN: continue TF, at goal. Dispo: lives in [place] prior to admission, does not have family involved in his care and if continues to fail to improve will need to find proxy decision maker * Ethics following #Disp: cont inpt admission with sepsis, requires intubation, IV abx Subjective: No new events Objective: Vital Signs Temp Pulse Resp BP Pulse Ox 38.3 C 105 H 10 L 126/69 H 95 01/12/17 10:00 01/12/17 10:00 01/12/17 10:00 01/12/17 10:00 01/12/17 10:00 Microbiology 01/08/17 15:45 Mycobacterial Smear (KATHLEEN) - Final Lung Left Lower Lobe - Bronchial Washings 01/08/17 15:45 Gram Stain - Final Lung Left Lower Lobe - Bronchial Washings Bronchial Washings Culture - Final MRSA Corynebacterium Striatum Group Laboratory Results 01/12/17 04:15 01/12/17 04:15 01/11/17 01/12/17 01/13/17 05:59 05:59 05:59 Intake Total 2518 1939 Output Total 2100 2360 Balance 418 -421 PT 16.1 SEC (12.0-15.0) H 01/04/17 20:15 INR 1.29 (0.83-1.16) H 01/04/17 20:15 - Physical Exam Constitutional: no apparent distress, appears nourished, not in pain Eyes: anicteric sclera Cardiovascular: regular rate and rhythym, no murmur, rub, or gallop, edema (1+ upper extremity edema) Respiratory: no respiratory distress, no rales or rhonchi, clear to auscultation Gastrointestinal: normoactive bowel sounds, soft, non-tender abdomen, no palpable masses Skin: warm Neurologic: other (Sedated) ICD10 Worksheet Patient Problems: Problems Problem Status Onset Methicillin resistant Staphylococcus aureus infection Acute ~01/04/17 Pneumonia Acute Respiratory failure Acute Severe sepsis Acute COPD (chronic obstructive pulmonary disease) Acute COPD exacerbation Acute Chest pain Acute Chronic Diseaes Mgmt/Transitional Care Acute Dyspnea Acute Hypoxemia Acute
--- NOTE | 2017-01-12 13:05 | PDINTPN ---
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 He was initially listed as DNR but changed his mind during this admission. Initial therapy included levaquin, but his O2 requirement was growing and he was eventually treated with bipap the night of 01/03. However, at my initial eval early 01/04, he was markedly tachypneic and unable to answer questions, necessitating emergent intubation. His history also includes significant ETOH, for which he was getting scheduled Vodka and Librium. He is on chronic O2 at 6 lpm, but admission labs suggests chronic hypoxemia (elevated hct); and has CHF with an EF of only 35-40% on 01/02/17. His CXR prior to ETT looked similar in distribution but more consolidated. * Acute respiratory failure with hypoxemia and hypercapnia- 2/2 Exensive PNA with elevated procalcitonin, as well as significant underlying emphysema. Scx with MRSA- was on clinda, levaquin and vanco, but reduced to vanco monotherapy with subsequent worsening so restarted clinda/levequin 01/10 and discussed with ID. Bronch wash 01/08/17 with GPR (corynebacterium). CT chest 01/10 shows dense consolidation of left lung without abscess or necrosis at this point. PCO2 of 55 -60 is likely his baseline since he has had an elevated HCO3 for a long time and pH is normal. RR decreased. Continue efforts to wean FiO2 as tolerated, targeting sat 90-94%. * Hypotension- possible volume issue, and resolved- though his BP remains "soft " * ETOH- since he was getting Vodka daily prior to intubation but has been off since, should be past the point of severe withdrawal. On propofol, fentanyl. * COPD by history- Moderate-Severe emphysema on CT. Use albuterol/atrovent QID while on vent. Dropped Solumedrol to 20/day 01/09. * CHF-Positive fluid balance last few days * Dispo: On 01/04/17 he was unable to communicate 2/2 respiratory distress. He agreed to aggressive treatment, including intubation which was required at that time. I believe his situation is potentially recoverable and would favor ongoing treatment. He may eventually need help identifying a decision maker, particularly if he ends up requiring a trach. * Anemia: Hgb down today. HD stable, no signs of active bleeding. Plan: Continue Vancomycin, Levaquin clindamycin. Will continue mechanical ventilation for now. Bronchoscopy today. Recheck H/H. CXR tomorrow. 01/12/17 13:02 01/12/17 13:05 Subjective: Intubated, sedated Objective: Vital Signs Temp Pulse Resp BP Pulse Ox 38.3 C 105 H 10 L 126/69 H 95 01/12/17 10:00 01/12/17 10:00 01/12/17 10:00 01/12/17 10:00 01/12/17 10:00 Microbiology 01/08/17 15:45 Mycobacterial Smear (KATHLEEN) - Final Lung Left Lower Lobe - Bronchial Washings 01/08/17 15:45 Gram Stain - Final Lung Left Lower Lobe - Bronchial Washings Bronchial Washings Culture - Final MRSA Corynebacterium Striatum Group Laboratory Results 01/12/17 04:15 01/12/17 04:15 01/11/17 01/12/17 01/13/17 05:59 05:59 05:59 Intake Total 2518 1939 Output Total 2100 2360 Balance 418 -421 PT 16.1 SEC (12.0-15.0) H 01/04/17 20:15 INR 1.29 (0.83-1.16) H 01/04/17 20:15 Laboratory Tests 01/11/17 01/12/17 04:30 04:15 Nucleat RBC Rel Count 0.0 NT-Pro-B Natriuret Pep 855 H Physical Exam - Physical Exam General Appearance: alert, no apparent distress EENT: normal ENT inspection Neck: normal inspection Respiratory: crackles (left) Cardiac/Chest: regular rate, rhythm, edema (1+) Abdomen: normal bowel sounds, non-tender, soft Skin: normal color, warm/dry Extremities: normal inspection Neuro/Psych: No alert, No normal mood/affect, No oriented x 3 ICD10 Worksheet Patient Problems: Problems Problem Status Onset Methicillin resistant Staphylococcus aureus infection Acute ~01/04/17 Pneumonia Acute Respiratory failure Acute Severe sepsis Acute COPD (chronic obstructive pulmonary disease) Acute COPD exacerbation Acute Chest pain Acute Chronic Diseaes Mgmt/Transitional Care Acute Dyspnea Acute Hypoxemia Acute
--- NOTE | 2017-01-12 14:04 | PCMIDPN ---
Assessment/Plan: Assessment/Plan: 1. Sepsis secondary to UAREA pneumonia: - Mrsa and Corynebacterium in cultures -currently on Vanco, levaquin, clindamycin -Still high o2 requirements - s/p bronch today. new cultures to be sent -wbc trending down -still with intermittent fevers, trend less frequent and lower today so far. -will follow new cultures and make adjustments as needed. - care discussed with Rn and Dr. Lopez 2. HX etoh use: - drinks 6 oz of vodka daily Meds vanco 1.5gm q12- levaquin 750mg daily clinda 600mg q8- solumedrol 20mg daily Subjective: Remains in ICU, intubated, sedated. intermittent fevers. Less predominant today so far. s/p bronch this morning. Objective: Vital Signs Temp Pulse Resp BP Pulse Ox 37.8 C 76 20 78/52 L 94 01/12/17 12:00 01/12/17 12:00 01/12/17 12:00 01/12/17 12:00 01/12/17 12:00 Microbiology 01/08/17 15:45 Mycobacterial Smear (KATHLEEN) - Final Lung Left Lower Lobe - Bronchial Washings 01/08/17 15:45 Gram Stain - Final Lung Left Lower Lobe - Bronchial Washings Bronchial Washings Culture - Final MRSA Corynebacterium Striatum Group Laboratory Results 01/12/17 04:15 01/12/17 04:15 01/11/17 01/12/17 01/13/17 05:59 05:59 05:59 Intake Total 2518 1939 Output Total 2100 2360 Balance 418 -421 - Physical Exam General Appearance: other (intubated , sedated in icu) EENT: ET Tube Respiratory: coarse breath sounds (bilaterally) Cardiac/Chest: regular rate, rhythm Extremities: swelling (extremities) Abdomen: normal bowel sounds, non-tender, soft, No distended Skin: No rash ICD10 Worksheet Patient Problems: Problems Problem Status Onset Methicillin resistant Staphylococcus aureus infection Acute ~01/04/17 Pneumonia Acute Respiratory failure Acute Severe sepsis Acute COPD (chronic obstructive pulmonary disease) Acute COPD exacerbation Acute Chest pain Acute Chronic Diseaes Mgmt/Transitional Care Acute Dyspnea Acute Hypoxemia Acute
[2017-01-12] MEDS: FUROSEMIDE 20 MG/2 ML VIAL IVP SCH (16:36)
--- NOTE | 2017-01-12 20:26 | GPN ---
[f rep st] PROCEDURE NOTE DATE OF PROCEDURE: 01/12/2017 PROCEDURE PERFORMED: Flexible fiberoptic bronchoscopy. REASON FOR PROCEDURE: Respiratory failure with retained secretions. PROCEDURE NOTE: Due to the lack of medical decision maker, the procedure was consented via consensus with Dr. Osorio Arellano. After an appropriate time-out, the bronchoscope was advanced through the patie nt's endotracheal tube into the main trachea. There were fairly extensive thick purulent secretions in the endotracheal tube and the proximal trachea, which were easily suctioned. I then proceeded to the left-sided airways were I encountered a [id number]-wuroa amount of mucopurulent secretions which were also easily suctioned. There were no occlusive plugs identified in the lobes. I then turned t o the right-sided airways and removed a moderate amount of mucopurulent secretions. A small volume l avage was performed of the right lower lobe. I then returned to the left-sided airways, where I exam ined all the airways as far as the scope could be advanced, and encountered no endobronchial lesions or occlusive plugs. I did a 20 mL lavage of the lower lobe with return of cloudy fluid. All airways were patent at the end of the procedure. There was no bleeding. A specimen will be sent for Gram s tain and culture. There were no complications apparent at the end of the procedure. /[id number]/MODL
[2017-01-12] MEDS: INSULIN GLARGINE 100 UNITS/ML SYRINGE SC SCH (21:47)
[2017-01-13] MEDS: PROPOFOL/EMULSION 100 ML IV SCH ×2 (02:00→21:02)
[2017-01-13] MEDS: fentaNYL/NACL 100 ML IV SCH ×2 (03:06→07:26)
[2017-01-13] MEDS: VANCOMYCIN 1.5 GM in D5W 250 ML IV SCH ×2 (04:21→16:14)
[2017-01-13 04:40] LABS: % IMMATURE GRANULYOCYTES 1.4 % (0.0-1.1); ABSOLUTE IMMATURE GRANULOCYTES 0.25 10^3/uL (0.00-0.10); ADD DIFF? NO; ADD MORPH? NO; ADD SCAN? NO; ATYPICAL LYMPHOCYTE FLAG 0 (0-99); FRAGMENT RBC FLAG 0 (0-99); HEMATOCRIT 25.7 % (40.0-51.0); HEMOGLOBIN 8.5 g/dL (13.7-17.5); LEFT SHIFT FLG 10 (0-99); LIPEMIA HEMOLYSIS FLAG 80 (0-99); MEAN CELL HEMOGLOBIN 30.6 pg (27.9-34.1); MEAN CELL HEMOGLOBIN CONCENTR. 33.1 g/dL (32.4-36.7); MEAN CELL VOLUME 92.4 fL (81.5-99.8); PLATELET CLUMPS FLAG 0 (0-99); PLATELET COUNT 300 10^3/uL (150-400); RED BLOOD CELL COUNT 2.78 10^6/uL (4.40-6.38); RED CELL DISTRIBUTION WIDTH 14.9 % (11.5-15.2)
[2017-01-13] MEDS: IPRATROPIUM HFA INHALER IH SCH ×4 (04:44→19:52)
[2017-01-13] MEDS: ALBUTEROL 200 PUFFS/18 GM MDI IH SCH ×6 (04:44→23:45)
[2017-01-13 04:52] LABS: CALCIUM 9.1 mg/dL (8.5-10.4); CHLORIDE 93 mEq/L (97-110); CREATININE 0.5 mg/dL (0.7-1.3); GLOMERULAR FILTRATION RATE > 60; GLUCOSE 116 mg/dL (70-100); POTASSIUM 3.9 mEq/L (3.5-5.2); SODIUM 141 mEq/L (134-144)
[2017-01-13 05:02] LABS: ANION GAP 7 mEq/L (8-16)
[2017-01-13 05:03] LABS: CARBON DIOXIDE 41 mEq/l (22-31)
[2017-01-13] MEDS: INSULIN LISPRO 100 UNIT/ML SC SCH ×4 (05:19→21:41)
[2017-01-13 05:54] LABS: BASE EXCESS 11.4 mEq/L (-2.5-2.5); BICARBONATE 38 mEq/L (22-26); MEASURED OXYGEN SATURATION 93 % (92-95); PCO2 69 mmHg (34-38); PO2 84 mmHg (65-75); TCO2 40 mEq/L (23-27)
[2017-01-13 05:55] LABS: SIMV YES
[2017-01-13 05:56] LABS: END TIDAL CO2 36; O2 CONCENTRATIION 70 % (0-100); P/F RATIO 120 RATIO; PATIENT RATE 27; PRESSURE SUPPORT 7
[2017-01-13] MEDS: CLINDAMYCIN 600 MG/DEXTROSE 50 ML IV SCH ×3 (06:13→21:01)
[2017-01-13] MEDS: ACETAMINOPHEN 650 MG/20.3 ML UDCUP PO PRN (06:47)
[2017-01-13] MEDS: POTASSIUM CL 20 MEQ/15 ML UDCUP TUBE SCH (09:06)
[2017-01-13] MEDS: FUROSEMIDE 20 MG/2 ML VIAL IVP SCH (09:06)
[2017-01-13] MEDS: ENOXAPARIN 40 MG/0.4 ML SYR SC SCH (09:07)
[2017-01-13] MEDS: methylPREDNISolone SOD SUCC 40 MG/ML VIAL IVP SCH (09:07)
[2017-01-13] MEDS: NICOTINE 14 MG/24 HR PATCH TD SCH (09:07)
[2017-01-13] MEDS: CHOLECALCIFEROL VIT D3 2,000 UNITS TAB/CAP PO SCH (09:07)
[2017-01-13] MEDS: FAMOTIDINE 20 MG TAB TUBE SCH ×2 (09:07→21:01)
[2017-01-13] MEDS: CHLORHEXIDINE GLUCONATE 15 ML UDL PO SCH ×2 (09:09→21:01)
--- NOTE | 2017-01-13 10:02 | PDINTPN ---
Human Resources Recruiter Progress Note Assessment/Plan: Assessment: 56 M who resides in [place] admitted 01/02/17 with hypoxia and pneumonia. He was initially listed as DNR but changed his mind during this admission. Initial therapy included levaquin, but his O2 requirement was growing and he was eventually treated with bipap the night of 01/03. However, at Dr. Santana's initial eval early 01/04, he was markedly tachypneic and unable to answer questions, necessitating emergent intubation. His history also includes significant ETOH, for which he was getting scheduled Vodka and Librium. He is on chronic O2 at 6 lpm, but admission labs suggests chronic hypoxemia (elevated hct); and has CHF with an EF of only 35-40% on 01/02/17. His CXR prior to ETT looked similar in distribution but more consolidated. * Acute respiratory failure with hypoxemia and hypercapnia- 2/2 Exensive PNA with elevated procalcitonin, as well as significant underlying emphysema. Scx with MRSA- was on clinda, levaquin and vanco, but reduced to vanco monotherapy with subsequent worsening so restarted clinda/levequin 01/10 and discussed with ID. Bronch wash 01/08/17 with GPR (corynebacterium). CT chest 01/10 shows dense consolidation of left lung without abscess or necrosis at this point. CXR today shows increased consolidation/infiltrate. Continue efforts to wean FiO2 as tolerated, targeting sat 90-94%. He's at risk for developing an abscess/empyema at the site of his dense consolidation. PCO2 of 55-60 is likely his baseline since he has had an elevated HCO3 for a long time and pH is normal. HCO3 elevated today, may be related to diuresis/contraction alkalosis. * Hypotension- possible volume issue, and resolved- though his BP remains "soft " * ETOH- since he was getting Vodka daily prior to intubation but has been off since, should be past the point of severe withdrawal. On propofol, fentanyl. * COPD by history- Moderate emphysema on CT. Use albuterol/atrovent QID while on vent. Dropped Solumedrol to 20/day 01/09. * CHF-Positive fluid balance last few days * Dispo: On 01/04/17 he was unable to communicate 2/2 respiratory distress. He agreed to aggressive treatment, including intubation which was required at that time. I believe his situation is potentially recoverable and would favor ongoing treatment. He may eventually need help identifying a decision maker, particularly if he ends up requiring a trach. * Anemia: Hgb down today. HD stable, no signs of active bleeding. Plan: Continue Vancomycin, Levaquin clindamycin. D/C Steroids. Will continue mechanical ventilation for now. Recheck H/H. CXR tomorrow. 01/13/17 11:15 Subjective: Intubated, sedated. Moving spontaneously Objective: Vital Signs Temp Pulse Resp BP Pulse Ox 38.1 C 100 24 H 136/64 H 94 01/13/17 07:44 01/13/17 08:59 01/13/17 08:59 01/13/17 07:44 01/13/17 08:59 Microbiology 01/12/17 12:00 - Final Sputum, Induced/Suctioned 01/08/17 15:45 Mycobacterial Smear (KATHLEEN) - Final Lung Left Lower Lobe - Bronchial Washings Laboratory Results 01/13/17 04:20 01/13/17 04:20 01/12/17 01/13/17 01/14/17 05:59 05:59 05:59 Intake Total 1939 2085.1 Output Total 2360 3600 Balance -421 -1514.9 PT 16.1 SEC (12.0-15.0) H 01/04/17 20:15 INR 1.29 (0.83-1.16) H 01/04/17 20:15 Laboratory Tests 01/13/17 05:47 pCO2 69 H pO2 84 H Total CO2 40 H ABG pH 7.37 ABG HCO3 38 H O2 Concentration % 70 SIMV YES Tidal Volume 500 CXR: Increased Left mid-lung consolidation and surrounding reticular infiltrate. Images reviewed by me. Physical Exam - Physical Exam General Appearance: alert, no apparent distress EENT: normal ENT inspection Neck: normal inspection Respiratory: lungs clear, normal breath sounds Cardiac/Chest: regular rate, rhythm, No edema Abdomen: normal bowel sounds, non-tender Skin: normal color, warm/dry Extremities: normal inspection Neuro/Psych: No alert, No motor weakness ICD10 Worksheet Patient Problems: Problems Problem Status Onset Methicillin resistant Staphylococcus aureus infection Acute ~01/04/17 Pneumonia Acute Respiratory failure Acute Severe sepsis Acute COPD (chronic obstructive pulmonary disease) Acute COPD exacerbation Acute Chest pain Acute Chronic Diseaes Mgmt/Transitional Care Acute Dyspnea Acute Hypoxemia Acute
[2017-01-13] MEDS ORDERED: acetaZOLAMIDE 500 MG in SYRINGE 0 ML IVP ONE (10:10)
[2017-01-13 11:16] LABS: PCO2 VENOUS 66 mmHg (40-44); PH VENOUS BLOOD 7.39 (7.31-7.42); PO2 VENOUS 46 mmHg (35-40); TCO2 VENOUS 41 mEq/L (23-27); VEN MEASURED OXYGEN SATURATION 74 % (65-75)
--- NOTE | 2017-01-13 11:48 | HOSPPROG ---
Hospitalist Progress Note Assessment/Plan: 56 yo male with hx of COPD and chronic resp failure on 6 L daily at baseline admitted for acute on chronic respiratory failure, sepsis, and left sided pneumonia. Still vented, seen in the ICU BP borderline low (systolic 80's) Over 4 L out since yesterday, received Lasix 20mg IV x 1 CO2 elevated #Acute on chronic Respiratory failure, etiology multifactorial, Vented #COPD exacerbation, still on Solumedrol, Ventolin, Atroven #Left sided pneumonia, on Clindamycin, Levaquin. Strep Pneumo by Uag, MMRSA ( sputum culture) and corynebacterium(sputum) #Hypotension #CHF #S/P Septic Shock #Leukocytosis, likely infection and steroids induced #Anemia, slight drop yesterday, no e/o bleed #Tobacco Abuse disorder, on nicotine replacement patch #Acute ETOH WD, resolved #DAVID, resolved #Hypernatremia, resolved #Hyperglycemia due to steroids, on Lantus Plan: -Hold Lasix for now -If needs further diuretics, consider Diamox -Cont dual abx -Appreciate ID and Pulm reccs -Cont Steroid taper -Vent per Pulm -Cont Tube feeds which he is tolerating well -Lovenox for DVT proph -Full Code (this was changed from DNR on admission per his request) Dispo: lives in [place] prior to admission, does not have family involved in his care and if continues to fail to improve will need to find proxy decision maker * Ethics following #Disp: cont inpt admission total critical care time is 35 minutes. Discussed with Pulm, pharm, nursing, during team rounds Subjective: Still vented. BP is soft. +++UOP 4 L yesterday Objective: Vital Signs Temp Pulse Resp BP Pulse Ox 37.7 C 89 17 98/56 L 96 01/13/17 10:00 01/13/17 10:00 01/13/17 10:00 01/13/17 10:00 01/13/17 10:00 Microbiology 01/12/17 12:00 - Final Sputum, Induced/Suctioned 01/08/17 15:45 Mycobacterial Smear (KATHLEEN) - Final Lung Left Lower Lobe - Bronchial Washings Laboratory Results 01/13/17 04:20 01/13/17 04:20 12/05/17 12/06/17 12/07/17 05:59 05:59 05:59 Intake Total 9 5.1 Output Total 2360 3600 475 Balance -421 -1514.9 -475 PT 16.1 SEC (12.0-15.0) H 01/04/17 20:15 INR 1.29 (0.83-1.16) H 01/04/17 20:15 - Physical Exam Constitutional: no apparent distress Eyes: PERRL Ears, Nose, Mouth, Throat: moist mucous membranes Cardiovascular: regular rate and rhythym, No edema Respiratory: reduced air movement, No respiratory distress Gastrointestinal: normoactive bowel sounds, soft, non-tender abdomen Skin: warm Psychiatric: other (sedated) ICD10 Worksheet Patient Problems: Problems Problem Status Onset Methicillin resistant Staphylococcus aureus infection Acute ~01/04/17 Pneumonia Acute Respiratory failure Acute Severe sepsis Acute COPD (chronic obstructive pulmonary disease) Acute COPD exacerbation Acute Chest pain Acute Chronic Diseaes Mgmt/Transitional Care Acute Dyspnea Acute Hypoxemia Acute
--- NOTE | 2017-01-13 13:26 | ASMTCMCOM ---
CM Note CM Note Notes: MD proxy process has been initiated due to the patient not having any family or friends that can serve in this capacity. Patient continues on mechanical ventilation for now. Bronchoscopy scheduled for today. Patient is slowly improving. D/C plan continues to be return to [place] at this time.CM will follow. Date Signed: 01/13/2017 01:25 PM Electronically Signed By:Ellen Glaser LCSW
--- NOTE | 2017-01-13 16:12 | PCMIDPN ---
Assessment/Plan: Assessment: Pneumonia with respiratory failure. Patient continues to be intubated well as having ongoing fevers. [place] that significant consolidation the upper lobe is responsible for the ongoing inflammatory cycles. It also appears with series of imaging that he may be developing a site of consolidation/abscess/necrosis in the left lung. MRSA and corynebacterium striatum should be covered with current regimen notably vancomycin. Trough level reasonable at this point. Plan: 1. Continue vancomycin, Levaquin and clindamycin. 2. Follow respiratory status and fever curve. Subjective: Patient remains intubated and sedated lying in his bed in the intensive care unit. Continues to have fevers. Hemodynamically stable. Objective: Vancomycin # 8 Levaquin # 11 Clindamycin # 10 Vital Signs Temp Pulse Resp BP Pulse Ox 37.8 C 113 H 30 H 141/61 H 93 01/13/17 14:46 01/13/17 14:46 01/13/17 14:46 01/13/17 14:46 01/13/17 14:46 Microbiology 01/12/17 12:00 - Final Sputum, Induced/Suctioned 01/08/17 15:45 Mycobacterial Smear (KATHLEEN) - Final Lung Left Lower Lobe - Bronchial Washings Laboratory Results 01/13/17 04:20 01/13/17 04:20 01/12/17 01/13/17 01/14/17 05:59 05:59 05:59 Intake Total 1939 2085.1 Output Total 2360 3600 1725 Balance -421 -1514.9 -1720 - Physical Exam General Appearance: WD/WN, no apparent distress, other (Intubated and sedated) Respiratory: crackles, coarse breath sounds (Left greater than right), No lungs clear, No normal breath sounds, No stridor, No wheezing Cardiac/Chest: tachycardia, No regular rate, rhythm Extremities: non-tender, normal inspection Skin: normal color, warm/dry, No rash ICD10 Worksheet Patient Problems: Problems Problem Status Onset Methicillin resistant Staphylococcus aureus infection Acute ~01/04/17 Pneumonia Acute Respiratory failure Acute Severe sepsis Acute COPD (chronic obstructive pulmonary disease) Acute COPD exacerbation Acute Chest pain Acute Chronic Diseaes Mgmt/Transitional Care Acute Dyspnea Acute Hypoxemia Acute
[2017-01-13] MEDS: INSULIN GLARGINE 100 UNITS/ML SYRINGE SC SCH (21:01)
[2017-01-14] MEDS: IPRATROPIUM HFA INHALER IH SCH ×4 (04:18→20:31)
[2017-01-14] MEDS: ALBUTEROL 200 PUFFS/18 GM MDI IH SCH ×6 (04:18→23:39)
[2017-01-14] MEDS: VANCOMYCIN 1.5 GM in D5W 250 ML IV SCH ×2 (04:32→17:43)
[2017-01-14] MEDS: PROPOFOL/EMULSION 100 ML IV SCH (04:40)
[2017-01-14 04:54] LABS: ABSOLUTE IMMATURE GRANULOCYTES 0.16 10^3/uL (0.00-0.10); ADD DIFF? NO; ADD MORPH? NO; ADD SCAN? NO; ATYPICAL LYMPHOCYTE FLAG 0 (0-99); FRAGMENT RBC FLAG 0 (0-99); HEMATOCRIT 25.3 % (40.0-51.0); LEFT SHIFT FLG 10 (0-99); LIPEMIA HEMOLYSIS FLAG 80 (0-99); MEAN CELL HEMOGLOBIN 29.9 pg (27.9-34.1); MEAN CELL HEMOGLOBIN CONCENTR. 31.6 g/dL (32.4-36.7); MEAN CELL VOLUME 94.4 fL (81.5-99.8); MEAN PLATELET VOLUME 9.9 fL (8.7-11.7); PLATELET CLUMPS FLAG 0 (0-99); PLATELET COUNT 303 10^3/uL (150-400); RED BLOOD CELL COUNT 2.68 10^6/uL (4.40-6.38); RED CELL DISTRIBUTION WIDTH 14.9 % (11.5-15.2)
[2017-01-14 05:11] LABS: ANION GAP 9 mEq/L (8-16); CALCIUM 9.4 mg/dL (8.5-10.4); CARBON DIOXIDE 34 mEq/l (22-31); CHLORIDE 98 mEq/L (97-110); CREATININE 0.6 mg/dL (0.7-1.3); GLOMERULAR FILTRATION RATE > 60; GLUCOSE 123 mg/dL (70-100); SODIUM 141 mEq/L (134-144)
[2017-01-14] MEDS: INSULIN LISPRO 100 UNIT/ML SC SCH ×3 (05:44→17:10)
[2017-01-14] MEDS: CLINDAMYCIN 600 MG/DEXTROSE 50 ML IV SCH ×3 (06:23→22:26)
[2017-01-14] MEDS: CHOLECALCIFEROL VIT D3 2,000 UNITS TAB/CAP PO SCH (08:05)
[2017-01-14] MEDS: FAMOTIDINE 20 MG TAB TUBE SCH ×2 (08:05→22:26)
[2017-01-14] MEDS: NICOTINE 14 MG/24 HR PATCH TD SCH (08:05)
[2017-01-14] MEDS: ENOXAPARIN 40 MG/0.4 ML SYR SC SCH (08:05)
[2017-01-14] MEDS: POTASSIUM CL 20 MEQ/15 ML UDCUP TUBE SCH (08:05)
[2017-01-14] MEDS: CHLORHEXIDINE GLUCONATE 15 ML UDL PO SCH ×2 (08:19→22:12)
--- NOTE | 2017-01-14 09:06 | PCMIDPN ---
Assessment/Plan: # Progressive dense L sided PNA due to MRSA and C. striatum underlying COPD and EtOH abuse put him at risk severe PNA with nosocomial pathogens. Suspect slow improvement and worsening CXR due to necrotizing PNA but cannot r/o evolving abscess or loculated empyema. Suspect persistent fever and leukocytosis due to severe PNA due to MRSA & corynebacterium as opposed to new process. Slight improvement in FiO2 requirements 70 to 60%. --review of literature shows corynebacterium susceptibility to B-lactams and aminoglycosides are variable, with high levels of resistance to erythromycin, tetracycline, rifampin, and ciprofloxacin and with all strains sensitive to vancomycin --continue vancomycin and check trough today, will shoot for higher levels, ~20 --DC clindamycin, MRSA is susceptible but clinda bacterial static and not clear will improve outcome. GP anaerobes still covered by vancomycin --consider dc levofloxacin soon. Not clear to me that GNR in sputum 01/12 is pathogen --if chest xray continues to progress may consider another CT scan to eval for drainable focus via IR # Fever: as above suspect due to necrotizing PNA, but monitor stool output, high risk for Cdiff # Unclear PCN allergy: tolerated cephalosporins in past meds levoflox 750mg IV daily, 01/10, #5 clindamycin 600mg IV daily 01/10, #4 vancomycin 1.5gm IV q12h, #9 micro 01/02/17 08:05 Blood Cx (2) neg 01/04 sputum : MRSA, corynebacterium 01/04/17 20:45 Blood CX (2) neg 01/08/17 15:45 Lung Left Lower Lobe - Bronchial Washings : MRSA (Vanco KATHLEEN = 1), Corynebacterium Striatum Group 01/12/17 12:00 Sputum, Induced/Suctioned Sputum Culture - Preliminary Gram Neg Leonel Lactose Charger Operator CXR 01/13: severe L sided mid lung dense consolidation, progressive Care coordinated with Dr. Lopez Subjective: patient following command, mild RUQ pain Ostomy output seems appropriate Objective: Vital Signs Temp Pulse Resp BP Pulse Ox 37.9 C 97 24 H 144/66 H 95 01/14/17 08:00 01/14/17 08:00 01/14/17 08:00 01/14/17 08:00 01/14/17 08:00 Microbiology 01/08/17 15:43 Blood Culture - Final Blood 01/12/17 12:00 - Final Sputum, Induced/Suctioned Laboratory Results 01/14/17 04:40 01/14/17 04:40 01/13/17 01/14/17 01/15/17 05:59 05:59 05:59 Intake Total 2085.1 1768.7 Output Total 3600 4050 Balance -1514.9 -2281.3 - Physical Exam General Appearance: alert, no apparent distress EENT: ET Tube, other (OGT) Respiratory: other (Remarkable decreased B L side laterally), No accessory muscle use Neck: supple Cardiac/Chest: regular rate, rhythm Abdomen: normal bowel sounds, non-tender, soft, other (Ostomy LLQ healthy appearing) Male Genitalia: jacobs Skin: diaphoresis, No rash Neuro/Psych: alert - Line/s LUE PICC Lines: No drainage, No erythema - Time Spent With Patient Time Spent with Patient: greater than 35 minutes Time Spent with Patient: Greater than 35 minutes spent on this patients care, greater than 50% of time spent counseling, educating, and coordinating care regarding the above mentioned plan. ICD10 Worksheet Patient Problems: Problems Problem Status Onset Methicillin resistant Staphylococcus aureus infection Acute ~01/04/17 Pneumonia Acute Respiratory failure Acute Severe sepsis Acute COPD (chronic obstructive pulmonary disease) Acute COPD exacerbation Acute Chest pain Acute Chronic Diseaes Mgmt/Transitional Care Acute Dyspnea Acute Hypoxemia Acute
[2017-01-14 09:59] LABS: ALBUMIN 2.4 g/dL (3.5-5.0); BILIRUBIN,TOTAL 0.4 mg/dL (0.1-1.4); BILIRUBIN-CONJUGATED 0.3 mg/dL (0.0-0.5); BILIRUBIN-UNCONJUGATED 0.1 mg/dL (0.0-1.1); TOTAL PROTEIN 5.9 g/dL (6.3-8.2)
--- NOTE | 2017-01-14 11:11 | PDINTPN ---
Summer Law Clerk Progress Note Assessment/Plan: Assessment: 56 M who resides in [place] admitted 01/02/17 with hypoxia and pneumonia. He was initially listed as DNR but changed his mind during this admission. Initial therapy included levaquin, but his O2 requirement was growing and he was eventually treated with bipap the night of 01/03. However, at Dr. Santana's initial eval early 01/04, he was markedly tachypneic and unable to answer questions, necessitating emergent intubation. His history also includes significant ETOH, for which he was getting scheduled Vodka and Librium. He is on chronic O2 at 6 lpm, but admission labs suggests chronic hypoxemia (elevated hct); and has CHF with an EF of only 35-40% on 01/02/17. His CXR prior to ETT looked similar in distribution but more consolidated. * Acute respiratory failure with hypoxemia and hypercapnia- 2/2 Exensive PNA with elevated procalcitonin, as well as significant underlying emphysema. Scx with MRSA- was on clinda, levaquin and vanco, but reduced to vanco monotherapy with subsequent worsening so restarted clinda/levequin 01/10 and discussed with ID. Bronch wash 01/08/17 with GPR (corynebacterium). CT chest 01/10 shows dense consolidation of left lung without abscess or necrosis at this point. CXR today shows increased consolidation/infiltrate. Continue efforts to wean FiO2 as tolerated, targeting sat 90-94%. He's at risk for developing an abscess/empyema at the site of his dense consolidation. PCO2 of 55-60 is likely his baseline since he has had an elevated HCO3 for a long time and pH is normal, CO2 remains slightly above that range today. * ETOH- since he was getting Vodka daily prior to intubation but has been off since, should be past the point of severe withdrawal. On propofol, fentanyl. * COPD by history- Moderate emphysema on CT. Use albuterol/atrovent QID while on vent. Dropped Solumedrol to 20/day 01/09. * CHF-Positive fluid balance last few days * Dispo: On 01/04/17 he was unable to communicate 2/2 respiratory distress. He agreed to aggressive treatment, including intubation which was required at that time. I believe his situation is potentially recoverable and would favor ongoing treatment. He may eventually need help identifying a decision maker, particularly if he ends up requiring a trach. * Anemia: Hgb down today. HD stable, no signs of active bleeding. Plan: Continue Vancomycin, Levaquin clindamycin. Will continue mechanical ventilation for now, goal saturations mid-upper 90s to help with probable necrotizing pneumonia. Follow H/H. CXR tomorrow, probably wiht check CT if CXR worse. 01/14/17 11:11 01/14/17 11:12 Subjective: Agitated with decreased sedation. C/O non-specific pain. Objective: Vital Signs Temp Pulse Resp BP Pulse Ox 37.5 C 95 28 H 131/70 H 92 01/14/17 10:00 01/14/17 10:00 01/14/17 10:00 01/14/17 10:00 01/14/17 10:00 Microbiology 01/12/17 12:00 - Final Sputum, Induced/Suctioned Sputum Culture - Final Gram Neg Leonel Lactose Vice President Of Consulting Services 01/08/17 15:43 Blood Culture - Final Blood Laboratory Results 01/14/17 04:40 01/14/17 04:40 01/13/17 01/14/17 01/15/17 05:59 05:59 05:59 Intake Total 2085.1 1768.7 Output Total 3600 4050 Balance -1514.9 -2281.3 PT 16.1 SEC (12.0-15.0) H 01/04/17 20:15 INR 1.29 (0.83-1.16) H 01/04/17 20:15 Laboratory Tests 01/13/17 11:09 VBG pH 7.39 VBG HCO3 39 H VBG Total CO2 41 H VBG O2 Saturation 74 Mixed VBG pCO2 66 H Mixed VBG pO2 46 H Physical Exam - Physical Exam General Appearance: alert, no apparent distress EENT: normal ENT inspection Neck: normal inspection Respiratory: lungs clear, normal breath sounds Cardiac/Chest: normal peripheral pulses, regular rate, rhythm, edema Abdomen: normal bowel sounds, non-tender Skin: normal color, warm/dry Extremities: normal inspection Neuro/Psych: alert, normal mood/affect, oriented x 3 ICD10 Worksheet Patient Problems: Problems Problem Status Onset Methicillin resistant Staphylococcus aureus infection Acute ~01/04/17 Pneumonia Acute Respiratory failure Acute Severe sepsis Acute COPD (chronic obstructive pulmonary disease) Acute COPD exacerbation Acute Chest pain Acute Chronic Diseaes Mgmt/Transitional Care Acute Dyspnea Acute Hypoxemia Acute
--- NOTE | 2017-01-14 12:02 | HOSPPROG ---
Hospitalist Progress Note Assessment/Plan: 56 yo male with hx of COPD and chronic resp failure on 6 L daily at baseline admitted for acute on chronic respiratory failure, sepsis, and left sided pneumonia. Still vented, seen in the ICU #Acute on chronic Respiratory failure, etiology multifactorial, Vented #COPD exacerbation, Ventolin, Atroven #Left sided pneumonia, on Clindamycin, Levaquin. Strep Pneumo by Uag, MMRSA ( sputum culture) and corynebacterium(sputum) #Hypotension, resolved by stopping diuretics #CHF #S/P Septic Shock #Leukocytosis, likely infection and steroids induced #Anemia, slight drop yesterday, no e/o bleed #Tobacco Abuse disorder, on nicotine replacement patch #Acute ETOH WD, resolved #DAVID, resolved #Hypernatremia, resolved #Hyperglycemia due to steroids, on Lantus Plan: -Abx per ID -Diuretics PRN, looks ok for now -consider CT Chest -Stop Lantus as steroids were stopped yesterday -Vent per Pulm -Cont Tube feeds which he is tolerating well -Lovenox for DVT proph -Full Code (this was changed from DNR on admission per his request) Dispo: lives in [place] prior to admission, does not have family involved in his care and if continues to fail to improve will need to find proxy decision maker * Ethics following #Disp: cont inpt admission Subjective: Seems more confused than yesterday. communicates that he is cold. Still on vent. BP is better. Denies pain Objective: Vital Signs Temp Pulse Resp BP Pulse Ox 37.5 C 100 24 H 131/70 H 94 01/14/17 10:00 01/14/17 11:20 01/14/17 11:20 01/14/17 10:00 01/14/17 11:20 Microbiology 01/12/17 12:00 - Final Sputum, Induced/Suctioned Sputum Culture - Final Gram Neg Leonel Lactose [employer] Internet Sales Manager 01/08/17 15:43 Blood Culture - Final Blood Laboratory Results 01/14/17 04:40 01/14/17 04:40 01/13/17 01/14/17 01/15/17 05:59 05:59 05:59 Intake Total 2085.1 1768.7 Output Total 3600 4050 Balance -1514.9 -2281.3 PT 16.1 SEC (12.0-15.0) H 11/27/17 20:15 INR 1.29 (0.83-1.16) H 01/04/17 20:15 - Physical Exam Constitutional: no apparent distress Eyes: PERRL Ears, Nose, Mouth, Throat: moist mucous membranes Cardiovascular: regular rate and rhythym, No JVD, No edema Respiratory: reduced air movement Gastrointestinal: normoactive bowel sounds Skin: warm Neurologic: No facial droop Psychiatric: encephalopathic ICD10 Worksheet Patient Problems: Problems Problem Status Onset Methicillin resistant Staphylococcus aureus infection Acute ~01/04/17 Pneumonia Acute Respiratory failure Acute Severe sepsis Acute COPD (chronic obstructive pulmonary disease) Acute COPD exacerbation Acute Chest pain Acute Chronic Diseaes Mgmt/Transitional Care Acute Dyspnea Acute Hypoxemia Acute
[2017-01-14] MEDS: ACETAMINOPHEN 650 MG/20.3 ML UDCUP PO PRN ×2 (16:12→22:11)
--- NOTE | 2017-01-14 16:40 | ASMTCMCOM ---
CM Note CM Note Notes: Today in rounds SWer learned that Pt. still not decisional and on day 10 of intubation and that SWer should f/u with Ethics consulters about process of establishing a proxy. Tu Arce MD on for Ethics today. Tu came to ICU to review case and make recommendations. Tu and Lindsay Garcia, of CM met. 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 well. Perhaps can coordinate meeting of interested parties from [place] here at [facility] and will be able to find a possible proxy. It seems that finding a physican proxy may prove difficult. Tu stated Ethics would be following. CM to follow. Date Signed: 01/14/2017 04:39 PM Electronically Signed By:vE Stephens LCSW
[2017-01-14] MEDS: VANCOMYCIN 1.25 GM in D5W 250 ML IV SCH (17:08)
[2017-01-14] MEDS: fentaNYL/NACL 100 ML IV SCH (17:43)
--- NOTE | 2017-01-14 20:35 | ASMTCMCOM ---
CM Note CM Note Notes: Patient is currently to his , Jasmin. They never got a divorce. Kat lives in [place] with their three children. The three kids are in their 20's with developmental disabilities of varying degrees. Jasmin let me know that the reason that Kye and she are not together is because of his alcoholism - "he just disappeared". She said that Kye started drinking heavily after the of one of their children () many years ago. Jasmin also let me know that Kye does not have any living relatives besides her. Kat Del Cid can be reached at [phone]. Date Signed: 01/14/2017 08:34 PM Electronically Signed By:Lindsay Garcia RN
[2017-01-15] MEDS: VANCOMYCIN 1.25 GM in D5W 250 ML IV SCH ×3 (01:46→16:57)
[2017-01-15] MEDS: ACETAMINOPHEN 650 MG/20.3 ML UDCUP PO PRN (04:00)
[2017-01-15] MEDS: ALBUTEROL 200 PUFFS/18 GM MDI IH SCH ×6 (04:38→23:34)
[2017-01-15] MEDS: IPRATROPIUM HFA INHALER IH SCH ×4 (04:38→20:06)
[2017-01-15 06:13] LABS: % IMMATURE GRANULYOCYTES 0.9 % (0.0-1.1); ABSOLUTE IMMATURE GRANULOCYTES 0.15 10^3/uL (0.00-0.10); ADD DIFF? NO; ADD MORPH? NO; ADD SCAN? NO; ATYPICAL LYMPHOCYTE FLAG 0 (0-99); FRAGMENT RBC FLAG 0 (0-99); HEMATOCRIT 25.3 % (40.0-51.0); HEMOGLOBIN 8.1 g/dL (13.7-17.5); LEFT SHIFT FLG 20 (0-99); LIPEMIA HEMOLYSIS FLAG 80 (0-99); MEAN CELL HEMOGLOBIN 30.5 pg (27.9-34.1); MEAN CELL VOLUME 95.1 fL (81.5-99.8); MEAN PLATELET VOLUME 9.9 fL (8.7-11.7); PLATELET CLUMPS FLAG 0 (0-99); PLATELET COUNT 259 10^3/uL (150-400); RED BLOOD CELL COUNT 2.66 10^6/uL (4.40-6.38); RED CELL DISTRIBUTION WIDTH 14.6 % (11.5-15.2)
[2017-01-15] MEDS: CLINDAMYCIN 600 MG/DEXTROSE 50 ML IV SCH (07:14)
[2017-01-15] MEDS: INSULIN LISPRO 100 UNIT/ML SC SCH ×4 (07:47→17:07)
[2017-01-15] MEDS: fentaNYL/NACL 100 ML IV SCH (07:56)
[2017-01-15] MEDS: NICOTINE 14 MG/24 HR PATCH TD SCH (08:05)
[2017-01-15] MEDS: ENOXAPARIN 40 MG/0.4 ML SYR SC SCH (08:06)
[2017-01-15] MEDS: CHLORHEXIDINE GLUCONATE 15 ML UDL PO SCH ×2 (08:06→20:54)
[2017-01-15] MEDS: FAMOTIDINE 20 MG TAB TUBE SCH ×2 (08:06→20:54)
[2017-01-15] MEDS: CHOLECALCIFEROL VIT D3 2,000 UNITS TAB/CAP PO SCH (08:06)
[2017-01-15] MEDS: POTASSIUM CL 20 MEQ/15 ML UDCUP TUBE SCH (08:06)
[2017-01-15 10:27] LABS: ANION GAP 7 mEq/L (8-16); CALCIUM 9.3 mg/dL (8.5-10.4); CARBON DIOXIDE 32 mEq/l (22-31); CHLORIDE 100 mEq/L (97-110); CREATININE 0.6 mg/dL (0.7-1.3); GLOMERULAR FILTRATION RATE > 60; GLUCOSE 174 mg/dL (70-100); MAGNESIUM 1.7 mg/dL (1.6-2.3); POTASSIUM 4.5 mEq/L (3.5-5.2); SODIUM 139 mEq/L (134-144)
--- NOTE | 2017-01-15 11:17 | PDINTPN ---
Director Patient Accounting Progress Note Assessment/Plan: Assessment: 56 M who resides in [place] admitted 01/02/17 with hypoxia and pneumonia. He was initially listed as DNR but changed his mind during this admission. Initial therapy included levaquin, but his O2 requirement was growing and he was eventually treated with bipap the night of 01/03. However, at Dr. Santana's initial eval early 01/04, he was markedly tachypneic and unable to answer questions, necessitating emergent intubation. His history also includes significant ETOH, for which he was getting scheduled Vodka and Librium. He is on chronic O2 at 6 lpm, but admission labs suggests chronic hypoxemia (elevated hct); and has CHF with an EF of only 35-40% on 01/02/17. His CXR prior to ETT looked similar in distribution but more consolidated. * Acute respiratory failure with hypoxemia and hypercapnia- 2/2 Exensive PNA with elevated procalcitonin, as well as significant underlying emphysema. Scx with MRSA- was on clinda, levaquin and vanco, but reduced to vanco monotherapy with subsequent worsening so restarted clinda/levequin 01/10 and discussed with ID. Bronch wash 01/08/17 with GPR (corynebacterium). CT chest 01/10 shows dense consolidation of left lung without abscess or necrosis at this point. Bronch 01/12 moderate-large amount of mucopurulent secretions, growing GNR. CXR today shows increased consolidation/infiltrate. Unable to wean FIO2. He's at risk for developing an abscess/empyema at the site of his dense consolidation. PCO2 of 55 -60 is likely his baseline since he has had an elevated HCO3 for a long time and pH is normal, CO2 remains slightly above that range today. * ETOH- since he was getting Vodka daily prior to intubation but has been off since, should be past the point of severe withdrawal. On propofol, fentanyl. * COPD by history- Moderate emphysema on CT. Use albuterol/atrovent QID while on vent. Dropped Solumedrol to 20/day 01/09. * CHF-Positive fluid balance last few days * Dispo: On 01/04/17 he was unable to communicate 2/2 respiratory distress. He agreed to aggressive treatment, including intubation which was required at that time. I believe his situation is potentially recoverable and would favor ongoing treatment. He may eventually need help identifying a decision maker, particularly if he ends up requiring a trach. * Anemia: Hgb down today. HD stable, no signs of active bleeding. Plan: Continue Vancomycin, Levaquin, clindamycin. Will continue mechanical ventilation for now, goal saturations mid-upper 90s to help with probable necrotizing pneumonia. Follow H/H. CT today. 01/15/17 11:14 Subjective: Intubated, sedated but awake and mildly agitated. Objective: Vital Signs Temp Pulse Resp BP Pulse Ox 37.5 C 110 H 27 H 134/67 H 90 L 01/15/17 10:00 01/15/17 10:00 01/15/17 10:00 01/15/17 10:00 01/15/17 10:00 Microbiology 01/09/17 15:15 Blood Culture - Final Blood 01/12/17 12:00 - Final Sputum, Induced/Suctioned Sputum Culture - Final Gram Neg Leonel Lactose Director Radio Laboratory Results 01/15/17 05:45 01/15/17 09:40 01/14/17 01/15/17 01/16/17 05:59 05:59 05:59 Intake Total 1768.7 2583 Output Total 4050 1650 Balance -2281.3 933 PT 16.1 SEC (12.0-15.0) H 01/04/17 20:15 INR 1.29 (0.83-1.16) H 01/04/17 20:15 CXR: Worsening right opacification c/w pneumonia.Images reviewed by me. Physical Exam - Physical Exam General Appearance: alert, mild distress EENT: normal ENT inspection Neck: normal inspection Respiratory: chest non-tender, lungs clear, normal breath sounds Cardiac/Chest: regular rate, rhythm, No edema Abdomen: normal bowel sounds, non-tender Skin: normal color, warm/dry Extremities: normal inspection Neuro/Psych: alert, No normal mood/affect, No oriented x 3, No motor weakness ICD10 Worksheet Patient Problems: Problems Problem Status Onset Methicillin resistant Staphylococcus aureus infection Acute ~01/04/17 Pneumonia Acute Respiratory failure Acute Severe sepsis Acute COPD (chronic obstructive pulmonary disease) Acute COPD exacerbation Acute Chest pain Acute Chronic Diseaes Mgmt/Transitional Care Acute Dyspnea Acute Hypoxemia Acute
--- NOTE | 2017-01-15 11:33 | HOSPPROG ---
Hospitalist Progress Note Assessment/Plan: 56 yo male with hx of COPD and chronic resp failure on 6 L daily at baseline admitted for acute on chronic respiratory failure, sepsis, and left sided pneumonia. -Still vented, seen in the ICU -foul smelling ostomy output -CXR c/w left sided opacification, worse overall -Still with intermittent fever #Acute on chronic Respiratory failure, etiology multifactorial, Vented #COPD exacerbation, Ventolin, Atroven #Left sided pneumonia, on Clindamycin, Levaquin, and Vancomycin. Strep Pneumo by Uag, MRSA (sputum culture) and corynebacterium(sputum) #Hypotension, intermittent #CHF #S/P Septic Shock #Leukocytosis, likely infection and steroids induced #Anemia, stable Hgb, no e/o bleed #Tobacco Abuse disorder, on nicotine replacement patch #Acute ETOH WD, resolved #DAVID, resolved #Hypernatremia, resolved #Hyperglycemia due to steroids, Lantus stopped 01/14 once steroids stopped. Glucose is now appropriate Plan: -Abx per ID, still on all 3 abx. -Check C-Diff -Check Chest CT, look for drainable process -Diuretics PRN, May need additional diuretics soon if BP can tolerate -Monitor glucose now that off Lantus -Vent per Pulm -Cont Tube feeds which he is tolerating well -Lovenox for DVT proph -Full Code (this was changed from DNR on admission per his request) Dispo: lives in [place] prior to admission. He is still . is out of town. CM looking into if she can act as proxy #Disp: cont inpt admission Subjective: still vented. Still with intermittent fever. Still with intermittent low BP Objective: Vital Signs Temp Pulse Resp BP Pulse Ox 37.5 C 107 H 36 H 134/67 H 89 L 01/15/17 10:00 01/15/17 11:19 01/15/17 11:19 01/15/17 10:00 01/15/17 11:19 Microbiology 01/09/17 15:15 Blood Culture - Final Blood 01/12/17 12:00 - Final Sputum, Induced/Suctioned Sputum Culture - Final Gram Neg Leonel Lactose Paedodontist Laboratory Results 01/15/17 05:45 01/15/17 09:40 01/14/17 01/15/17 01/16/17 05:59 05:59 05:59 Intake Total 1768.7 2583 Output Total 4050 1650 Balance -2281.3 933 PT 16.1 SEC (12.0-15.0) H 01/04/17 20:15 INR 1.29 (0.83-1.16) H 01/04/17 20:15 - Physical Exam Constitutional: no apparent distress Eyes: PERRL, EOMI Ears, Nose, Mouth, Throat: moist mucous membranes, No dry mucous membranes Cardiovascular: regular rate and rhythym, edema (UE-hands), No JVD Respiratory: reduced air movement, rhonchi Gastrointestinal: normoactive bowel sounds, soft, non-tender abdomen Skin: warm Neurologic: No facial droop Psychiatric: encephalopathic Lymph, Heme, Immunologic: No petechiae ICD10 Worksheet Patient Problems: Problems Problem Status Onset Methicillin resistant Staphylococcus aureus infection Acute ~01/04/17 Pneumonia Acute Respiratory failure Acute Severe sepsis Acute COPD (chronic obstructive pulmonary disease) Acute COPD exacerbation Acute Chest pain Acute Chronic Diseaes Mgmt/Transitional Care Acute Dyspnea Acute Hypoxemia Acute
--- NOTE | 2017-01-15 12:20 | PCMIDPN ---
Assessment/Plan: 1. Severe, multi lobar pneumonia secondary to MRSA and Corynebacterium striatum in 56-year-old male with history of COPD/alcoholism: Patient's x-ray looks much worse. He remains febrile, with an elevated white blood cell count. Vancomycin levels have been suboptimal in the setting of severe MRSA pneumonia, and dose recently adjusted to target a higher trough of 20. Strongly suspect that clinical and radiographic worsening is secondary to poor antibiotic penetration. Agree with repeat CT scan today for further evaluation of lung parenchyma; may need repeat bronchoscopy/antibiotic change ( ? Linazolid) Have also asked laboratory to work up the gram-negative leonel to ensure it is not an ESBL, or something else. Clearly, levofloxacin is not making a difference. He has received 6 days of this; will discontinue. As outlined by Dr. Felipe, MARYCR[facility] article from 1992 revealed that cohort of patients reviewed with Corynebacterium striatum infection, organism was universally susceptible to vancomycin. 01/15/17 12:23 Subjective: Patient remains febrile, with leukocytosis and hypoxemia. Clindamycin discontinued yesterday. Vancomycin trough the been problematic. Patient tells me he does not feel he is getting better. Is agreeable to an HIV test. Objective: Vancomycin 1.25 g IV q.8 hours day 10. 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 Laboratory Results 01/15/17 05:45 01/15/17 09:40 01/14/17 01/15/17 01/16/17 05:59 05:59 05:59 Intake Total 1768.7 2583 Output Total 4050 1650 Balance -2281.3 January 08 bronch: 4+ MRSA 4+ corynebacterium, AFB stain negative, fungal culture negative thus far Sputum January 12 with Luis gram-negative leonel lactose histologic aide - Physical Exam General Appearance: alert, other (Intubated) EENT: No scleral icterus Respiratory: coarse breath sounds Cardiac/Chest: regular rate, rhythm, No systolic murmur Abdomen: non-tender, soft, other (Colostomy bag with brown liquid stool) Skin: No rash ICD10 Worksheet Patient Problems: Problems Problem Status Onset Methicillin resistant Staphylococcus aureus infection Acute ~01/04/17 Pneumonia Acute Respiratory failure Acute Severe sepsis Acute COPD (chronic obstructive pulmonary disease) Acute COPD exacerbation Acute Chest pain Acute Chronic Diseaes [facility]/Transitional Care Acute Dyspnea Acute Hypoxemia Acute
[2017-01-15] MEDS: PROPOFOL/EMULSION 100 ML IV SCH ×2 (12:24→21:23)
--- NOTE | 2017-01-15 14:19 | ASMTCMCOM ---
CM Note CM Note Notes: Spoke with Jasmin Del Cid ([phone]) patient's and MDPOA regarding her request to have dr call her about patient being trached. Jasmin would like patient to have a trach as soon as medically possible. Dr. Lopez states patient will not be ready for this until around Wednesday or Wednesday of next week. The can call at that time. Jasmin also wants the staff to know to call her at any time we need an MDPOA involved in the decision making process. CM will follow. Date Signed: 01/15/2017 02:18 PM Electronically Signed By:Ellen Glaser LCSW
[2017-01-15] MEDS ORDERED: IOPAMIDOL (ISOVUE-300) 100 ML BTL ONE (14:34)
[2017-01-15] MEDS: ACETAMINOPHEN 650 MG/20.3 ML UDCUP TUBE PRN ×2 (15:49→21:30)
[2017-01-16] MEDS: INSULIN LISPRO 100 UNIT/ML SC SCH ×5 (00:12→23:18)
[2017-01-16] MEDS: fentaNYL/NACL 100 ML IV SCH (01:40)
[2017-01-16] MEDS: VANCOMYCIN 1.25 GM in D5W 250 ML IV SCH ×2 (02:59→09:26)
[2017-01-16] MEDS: ALBUTEROL 200 PUFFS/18 GM MDI IH SCH ×6 (04:55→23:39)
[2017-01-16] MEDS: IPRATROPIUM HFA INHALER IH SCH ×4 (05:12→20:49)
[2017-01-16 05:24] LABS: % IMMATURE GRANULYOCYTES 1.4 % (0.0-1.1); ABSOLUTE IMMATURE GRANULOCYTES 0.21 10^3/uL (0.00-0.10); ADD DIFF? NO; ADD MORPH? NO; ADD SCAN? NO; ATYPICAL LYMPHOCYTE FLAG 0 (0-99); FRAGMENT RBC FLAG 0 (0-99); HEMOGLOBIN 8.6 g/dL (13.7-17.5); LEFT SHIFT FLG 10 (0-99); LIPEMIA HEMOLYSIS FLAG 80 (0-99); MEAN CELL HEMOGLOBIN 31.3 pg (27.9-34.1); MEAN CELL HEMOGLOBIN CONCENTR. 33.1 g/dL (32.4-36.7); MEAN CELL VOLUME 94.5 fL (81.5-99.8); PLATELET CLUMPS FLAG 0 (0-99); PLATELET COUNT 251 10^3/uL (150-400); RED BLOOD CELL COUNT 2.75 10^6/uL (4.40-6.38); RED CELL DISTRIBUTION WIDTH 14.6 % (11.5-15.2)
[2017-01-16 05:38] LABS: ANION GAP 8 mEq/L (8-16); CALCIUM 9.2 mg/dL (8.5-10.4); CARBON DIOXIDE 34 mEq/l (22-31); CHLORIDE 95 mEq/L (97-110); CREATININE 0.4 mg/dL (0.7-1.3); GLOMERULAR FILTRATION RATE > 60; GLUCOSE 126 mg/dL (70-100); MAGNESIUM 1.7 mg/dL (1.6-2.3); POTASSIUM 4.2 mEq/L (3.5-5.2); SODIUM 137 mEq/L (134-144)
[2017-01-16] MEDS: CHLORHEXIDINE GLUCONATE 15 ML UDL PO SCH ×2 (08:08→19:28)
[2017-01-16] MEDS: ENOXAPARIN 40 MG/0.4 ML SYR SC SCH (08:09)
[2017-01-16] MEDS: ACETAMINOPHEN 650 MG/20.3 ML UDCUP TUBE PRN ×3 (08:09→19:27)
[2017-01-16] MEDS: NICOTINE 14 MG/24 HR PATCH TD SCH (08:09)
[2017-01-16] MEDS: PROPOFOL/EMULSION 100 ML IV SCH ×3 (08:09→19:30)
[2017-01-16] MEDS: FAMOTIDINE 20 MG TAB TUBE SCH ×2 (08:09→19:29)
[2017-01-16] MEDS: CHOLECALCIFEROL VIT D3 2,000 UNITS TAB/CAP PO SCH (08:09)
[2017-01-16] MEDS: POTASSIUM CL 20 MEQ/15 ML UDCUP TUBE SCH (10:08)
--- NOTE | 2017-01-16 11:35 | HOSPPROG ---
Hospitalist Progress Note Assessment/Plan: 56 yo male with hx of COPD and chronic resp failure on 6 L daily at baseline admitted for acute on chronic respiratory failure, sepsis, and left sided pneumonia. -Still vented, seen in the ICU -Levaquin and Clindamycin stopped -BP cont to be labile -Vanco dose increased -Weight stable -Increased FiO2 #Acute on chronic Respiratory failure, etiology multifactorial, Vented #COPD exacerbation, Ventolin, Atroven #Left sided pneumonia, Previously on Clindamycin, Levaquin which were stopped . Cont on Vancomycin. Strep Pneumo by Uag, MRSA (sputum culture) and corynebacterium(sputum) #Hypotension, intermittent #CHF, s/p diuresis #S/P Septic Shock #Leukocytosis, likely infection #Anemia, stable Hgb, no e/o bleed #Tobacco Abuse disorder, on nicotine replacement patch #Acute ETOH WD, resolved #DAVID, resolved #Hypernatremia, resolved #Hyperglycemia due to steroids, Lantus stopped 01/14 once steroids stopped. Glucose is now appropriate Plan: -Abx per ID, cont on Vancomycin -May benefit from Bronchoscopy, pulm following -Diuretics PRN, May need additional diuretics soon if BP can tolerate -Monitor glucose now that off Lantus, overall better -Vent per Pulm -Cont Tube feeds which he is tolerating well -Lovenox for DVT proph -Full Code (this was changed from DNR on admission per his request) Dispo: lives in [place] prior to admission. His who lives out of town can act as proxy if a decision regarding trach, etc is needed #Disp: cont inpt admission Cont ICU care. D/W multiple members of nursing team Subjective: Still vented. Follows commands, answers questions. No CP. FiO2 increased. Still with intermittent low bp. Still with intermittent fever. Objective: Vital Signs Temp Pulse Resp BP Pulse Ox 38 C 101 H 28 H 134/50 H 95 01/16/17 10:00 01/16/17 10:00 01/16/17 10:00 01/16/17 10:00 01/16/17 10:00 Microbiology 01/12/17 12:00 - Final Sputum, Induced/Suctioned 01/09/17 15:15 Blood Culture - Final Blood Laboratory Results 01/16/17 05:15 01/16/17 05:15 1201/16/17 01/17/17 05:59 05:59 05:59 Intake Total 2583 3045 Output Total 1650 1875 Balance 933 1170 PT 16.1 SEC (12.0-15.0) H 01/04/17 20:15 INR 1.29 (0.83-1.16) H 01/04/17 20:15 - Physical Exam Constitutional: no apparent distress Eyes: PERRL, EOMI Ears, Nose, Mouth, Throat: moist mucous membranes, hearing normal Cardiovascular: regular rate and rhythym, no murmur, rub, or gallop, No JVD Respiratory: reduced air movement Gastrointestinal: normoactive bowel sounds, soft, non-tender abdomen Skin: warm Neurologic: AAOx3 Psychiatric: not encephalopathic Lymph, Heme, Immunologic: No petechiae ICD10 Worksheet Patient Problems: Problems Problem Status Onset Methicillin resistant Staphylococcus aureus infection Acute ~01/04/17 Pneumonia Acute Respiratory failure Acute Severe sepsis Acute COPD (chronic obstructive pulmonary disease) Acute COPD exacerbation Acute Chest pain Acute Chronic Diseaes Mgmt/Transitional Care Acute Dyspnea Acute Hypoxemia Acute
--- NOTE | 2017-01-16 12:59 | PDINTPN ---
Global Chief Experience Officer Progress Note Assessment/Plan: Assessment: 56 M who resides in [place] admitted 01/02/17 with hypoxia and pneumonia. He was initially listed as DNR but changed his mind during this admission. Initial therapy included levaquin, but his O2 requirement was growing and he was eventually treated with bipap the night of 01/03. However, at Dr. Santana's initial eval early 01/04, he was markedly tachypneic and unable to answer questions, necessitating emergent intubation. His history also includes significant ETOH, for which he was getting scheduled Vodka and Librium. He is on chronic O2 at 6 lpm, but admission labs suggests chronic hypoxemia (elevated hct); and has CHF with an EF of only 35-40% on 01/02/17. His CXR prior to ETT looked similar in distribution but more consolidated. * Acute respiratory failure with hypoxemia and hypercapnia- 2/2 Exensive PNA with elevated procalcitonin, as well as significant underlying emphysema. Scx with MRSA- was on clinda, levaquin and vanco, but reduced to vanco monotherapy with subsequent worsening so restarted clinda/levequin 01/10 and discussed with ID. Bronch wash 01/08/17 with GPR (corynebacterium). CT chest 01/10 showed dense consolidation of left lung without abscess or necrosis at this point. Bronch 01/12 moderate-large amount of mucopurulent secretions, growing GNR. CT 01/15 shows increased consolidation, possible areas of abscess/necrosis. Unable to wean FIO2. PCO2 of 55-60 is likely his baseline since he has had an elevated HCO3 for a long time and pH is normal. * ETOH- since he was getting Vodka daily prior to intubation but has been off since, should be past the point of severe withdrawal. On propofol, fentanyl. * COPD by history- Moderate emphysema on CT. Use albuterol/atrovent QID while on vent. Dropped Solumedrol to 20/day 01/09. * CHF-Positive fluid balance last few days * Dispo: On 01/04/17 he was unable to communicate 2/2 respiratory distress. He agreed to aggressive treatment, including intubation which was required at that time. I believe his situation is potentially recoverable and would favor ongoing treatment. He may eventually need help identifying a decision maker, particularly if he ends up requiring a trach. * Anemia: Hgb up a bit today. * Nutrition: On TF Plan: Continue Vancomycin, Levaquin. Will continue mechanical ventilation for now, goal saturations mid-upper 90s to help with probable necrotizing pneumonia. Follow H/H. Await ID on GNR from 01/12 sputum. Will send another sputum Cx now. Discussed with Dr. Kline. 01/16/17 13:02 Subjective: Intubated, sedated Objective: Vital Signs Temp Pulse Resp BP Pulse Ox 37.5 C 83 20 101/58 L 98 01/16/17 12:00 01/16/17 12:00 01/16/17 12:00 01/16/17 12:00 01/16/17 12:00 Microbiology 01/12/17 12:00 - Final Sputum, Induced/Suctioned 01/09/17 15:15 Blood Culture - Final Blood Laboratory Results 01/16/17 05:15 01/16/17 05:15 01/15/17 01/16/17 01/17/17 05:59 05:59 05:59 Intake Total 2583 3045 Output Total 1650 1875 Balance 933 1170 PT 16.1 SEC (12.0-15.0) H 01/04/17 20:15 INR 1.29 (0.83-1.16) H 01/04/17 20:15 CT Chest: Increased left consolidation. Possible areas of necrosis/abscess. Images reviewed by me. Physical Exam - Physical Exam General Appearance: alert, no apparent distress EENT: normal ENT inspection Neck: normal inspection Respiratory: No normal breath sounds (decreased on left) Cardiac/Chest: regular rate, rhythm, No edema Abdomen: normal bowel sounds, non-tender Skin: normal color, warm/dry Extremities: normal inspection Neuro/Psych: No alert, No oriented x 3 ICD10 Worksheet Patient Problems: Problems Problem Status Onset Methicillin resistant Staphylococcus aureus infection Acute ~01/04/17 Pneumonia Acute Respiratory failure Acute Severe sepsis Acute COPD (chronic obstructive pulmonary disease) Acute COPD exacerbation Acute Chest pain Acute Chronic Diseaes Mgmt/Transitional Care Acute Dyspnea Acute Hypoxemia Acute
--- NOTE | 2017-01-16 14:13 | PCMIDPN ---
Assessment/Plan: 1. Severe, multi lobar pneumonia secondary to MRSA and Corynebacterium striatum in 56-year-old male with history of COPD/alcoholism: Patient's chest CT looks much worse, and he remains febrile with significant oxygen requirements. At this point, would favor trying an alternate anti-MRSA agent, such as linezolid. This will also cover Corynebacterium. Patient is not on an SSRI, and mitochondrial toxicity typically occurs after 2 weeks of therapy with linezolid. I ordered a repeat sputum yesterday which was not done for unclear reasons; this will be done today. Will also order repeat blood culture. C diff toxin negative. 01/16/17 14:16 Subjective: Remains febrile, with an FiO2 of 90%. Chest CT reviewed with Dr. Quinteros. The left lung is opacified, with air-fluid levels in blebs consistent with abscesses. 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 Patient tachypneic) EENT: No scleral icterus Respiratory: coarse breath sounds Cardiac/Chest: tachycardia Extremities: other (picc LUE fine) Abdomen: non-tender, soft Skin: No rash ICD10 Worksheet Patient Problems: Problems Problem Status Onset Methicillin resistant Staphylococcus aureus infection Acute ~01/04/17 Pneumonia Acute Respiratory failure Acute Severe sepsis Acute COPD (chronic obstructive pulmonary disease) Acute COPD exacerbation Acute Chest pain Acute Chronic Diseaes [facility]/Transitional Care Acute Dyspnea Acute Hypoxemia Acute
[2017-01-16] MEDS: LINEZOLID 600 MG/DEXTROSE 300 ML IV SCH ×2 (15:21→21:00)
[2017-01-16 15:23] LABS: PCO2 VENOUS 63 mmHg (40-44); PH VENOUS BLOOD 7.36 (7.31-7.42); PO2 VENOUS 47 mmHg (35-40); TCO2 VENOUS 36 mEq/L (23-27); VEN MEASURED OXYGEN SATURATION 78 % (65-75)
[2017-01-17] MEDS: ACETAMINOPHEN 650 MG/20.3 ML UDCUP TUBE PRN ×4 (02:24→20:25)
[2017-01-17] MEDS: PROPOFOL/EMULSION 100 ML IV SCH ×5 (03:20→20:26)
[2017-01-17] MEDS: ALBUTEROL 200 PUFFS/18 GM MDI IH SCH ×5 (04:26→19:55)
[2017-01-17] MEDS: IPRATROPIUM HFA INHALER IH SCH ×4 (04:26→19:54)
[2017-01-17 04:32] LABS: PCO2 VENOUS 95 mmHg (40-44); PH VENOUS BLOOD 7.24 (7.31-7.42); PO2 VENOUS 58 mmHg (35-40); TCO2 VENOUS 42 mEq/L (23-27); VEN MEASURED OXYGEN SATURATION 82 % (65-75)
[2017-01-17 04:34] LABS: % IMMATURE GRANULYOCYTES 1.1 % (0.0-1.1); ABSOLUTE IMMATURE GRANULOCYTES 0.14 10^3/uL (0.00-0.10); ADD DIFF? NO; ADD MORPH? NO; ADD SCAN? NO; ATYPICAL LYMPHOCYTE FLAG 0 (0-99); FRAGMENT RBC FLAG 0 (0-99); HEMATOCRIT 25.6 % (40.0-51.0); HEMOGLOBIN 7.6 g/dL (13.7-17.5); LEFT SHIFT FLG 20 (0-99); LIPEMIA HEMOLYSIS FLAG 70 (0-99); MEAN CELL HEMOGLOBIN CONCENTR. 29.7 g/dL (32.4-36.7); MEAN CELL VOLUME 97.7 fL (81.5-99.8); PLATELET CLUMPS FLAG 0 (0-99); PLATELET COUNT 220 10^3/uL (150-400); RED BLOOD CELL COUNT 2.62 10^6/uL (4.40-6.38); RED CELL DISTRIBUTION WIDTH 14.6 % (11.5-15.2)
[2017-01-17 04:35] LABS: ASSIST CONTROL YES
[2017-01-17 04:36] LABS: END TIDAL CO2 53; O2 CONCENTRATIION 80 % (0-100)
[2017-01-17 04:50] LABS: ANION GAP 4 mEq/L (8-16); CALCIUM 10.1 mg/dL (8.5-10.4); CARBON DIOXIDE 40 mEq/l (22-31); CHLORIDE 97 mEq/L (97-110); CREATININE 0.5 mg/dL (0.7-1.3); GLOMERULAR FILTRATION RATE > 60; GLUCOSE 159 mg/dL (70-100); SODIUM 141 mEq/L (134-144)
[2017-01-17] MEDS: INSULIN LISPRO 100 UNIT/ML SC SCH ×3 (05:39→18:14)
[2017-01-17] MEDS: FAMOTIDINE 20 MG TAB TUBE SCH ×2 (08:02→20:12)
[2017-01-17] MEDS: CHOLECALCIFEROL VIT D3 2,000 UNITS TAB/CAP PO SCH (08:02)
[2017-01-17] MEDS: NICOTINE 14 MG/24 HR PATCH TD SCH (08:02)
[2017-01-17] MEDS: ENOXAPARIN 40 MG/0.4 ML SYR SC SCH (08:03)
[2017-01-17] MEDS: CHLORHEXIDINE GLUCONATE 15 ML UDL PO SCH ×2 (08:03→20:13)
[2017-01-17] MEDS: LINEZOLID 600 MG/DEXTROSE 300 ML IV SCH ×2 (08:03→20:12)
[2017-01-17] MEDS: POTASSIUM CL 20 MEQ/15 ML UDCUP TUBE SCH (08:03)
--- NOTE | 2017-01-17 09:33 | PDINTPN ---
Solo Musician Progress Note Assessment/Plan: Assessment: 56 M who resides in [place] admitted 01/02/17 with hypoxia and pneumonia. He was initially listed as DNR but changed his mind during this admission. Initial therapy included levaquin, but his O2 requirement was growing and he was eventually treated with bipap the night of 01/03. However, at Dr. Santana's initial eval early 01/04, he was markedly tachypneic and unable to answer questions, necessitating emergent intubation. His history also includes significant ETOH, for which he was getting scheduled Vodka and Librium. He is on chronic O2 at 6 lpm, but admission labs suggests chronic hypoxemia (elevated hct); and has CHF with an EF of only 35-40% on 01/02/17. His CXR prior to ETT looked similar in distribution but more consolidated. * Acute respiratory failure with hypoxemia and hypercapnia- 2/2 Exensive PNA with elevated procalcitonin, as well as significant underlying emphysema. Scx with MRSA- was on clinda, levaquin and vanco, but reduced to vanco monotherapy with subsequent worsening so restarted clinda/levequin 01/10 and discussed with ID. Bronch wash 01/08/17 with GPR (corynebacterium). CT chest 01/10 showed dense consolidation of left lung without abscess or necrosis at this point. Bronch 01/12 moderate-large amount of mucopurulent secretions, growing GNR. CT 01/15 shows increased consolidation, possible areas of abscess/necrosis. Unable to wean FIO2. PCO2 of 55-60 is likely his baseline. His CO2 is significantly higher today. * MRSA Pneumonia: Progressing despite Vancomycin, now changed to Linezolid. I suspect there is necrosis/abscess contributing to antibiotic failure. ? significance of rare growth of K. Pneumonia, not currently covered by antibiotics (is resistant to Levaquin, which was stopped 01/15). * ETOH- since he was getting Vodka daily prior to intubation but has been off since, should be past the point of severe withdrawal. On propofol, fentanyl. * COPD by history- Moderate emphysema on CT. Use albuterol/atrovent QID while on vent. Stopped solumedrol * CHF-Positive fluid balance last few days * Dispo: On 01/04/17 he was unable to communicate 2/2 respiratory distress. He agreed to aggressive treatment, including intubation which was required at that time. * Anemia: Hgb down today * Nutrition: On TF Plan: Continue linezolid. Will continue mechanical ventilation for now, goal saturations mid-upper 90s to help with probable necrotizing pneumonia. Repeat H/ H. I think it's time to proceed with trach. His prognosis is poor, with progressive worsening of densely consolidated pneumonia/necrosis despite antibiotic therapy. Discussed with Dr. Kline, Dr. Martinez. 01/17/17 10:48 Subjective: Intubated, sedated. Objective: Vital Signs Temp Pulse Resp BP Pulse Ox 38.2 C 113 H 22 H 154/72 H 90 L 01/17/17 08:00 01/17/17 08:00 01/17/17 08:00 01/17/17 08:00 01/17/17 08:00 Microbiology 01/12/17 12:00 - Final Sputum, Induced/Suctioned Sputum Culture - Final Klebsiella Pneumoniae Ssp Pneu 01/16/17 16:40 - Final Sputum, Induced/Suctioned Laboratory Results 01/17/17 04:20 01/17/17 04:20 01/16/17 01/17/17 01/18/17 05:59 05:59 05:59 Intake Total 3045 2952 Output Total 1875 1525 Balance 1170 1427 PT 16.1 SEC (12.0-15.0) H 01/04/17 20:15 INR 1.29 (0.83-1.16) H 01/04/17 20:15 Microbiology 01/12/17 12:00 Sputum, Induced/Suctioned - Final 01/12/17 12:00 Sputum, Induced/Suctioned Sputum Culture - Final Klebsiella Pneumoniae Ssp Pneu CXR: No change. Images reviewed by me. Laboratory Tests 01/17/17 04:20 VBG pH 7.24 L VBG HCO3 39 H VBG Total CO2 42 H VBG O2 Saturation 82 H VBG Base Excess 9.6 H Mixed VBG pCO2 95 H Mixed VBG pO2 58 H O2 Concentration % 80 Physical Exam - Physical Exam General Appearance: alert, no apparent distress EENT: normal ENT inspection Neck: normal inspection Respiratory: lungs clear, normal breath sounds Cardiac/Chest: normal peripheral pulses, regular rate, rhythm Abdomen: normal bowel sounds, non-tender Skin: normal color, warm/dry Extremities: normal inspection Neuro/Psych: No alert (sedated with propofol), No oriented x 3 ICD10 Worksheet Patient Problems: Problems Problem Status Onset Methicillin resistant Staphylococcus aureus infection Acute ~01/04/17 Pneumonia Acute Respiratory failure Acute Severe sepsis Acute COPD (chronic obstructive pulmonary disease) Acute COPD exacerbation Acute Chest pain Acute Chronic Diseaes Mgmt/Transitional Care Acute Dyspnea Acute Hypoxemia Acute
--- NOTE | 2017-01-17 10:40 | HOSPPROG ---
Hospitalist Progress Note Assessment/Plan: 56 yo male with hx of COPD and chronic resp failure on 6 L daily at baseline admitted for acute on chronic respiratory failure, sepsis, and left sided pneumonia. -Still vented, seen in the ICU -Infection getting worse -Levaquin, vancomycin, and Clindamycin stopped. Now on Linezolid alone -BP better -Weight increased -Increased FiO2 #Acute on chronic Respiratory failure, etiology multifactorial, Vented #COPD exacerbation, Ventolin, Atroven, off steroids #Left sided pneumonia, Previously on Clindamycin, Levaquin, which were stopped 01/15. Vancomycin stopped 01/16. Now on Linezolid (start 01/16). Strep Pneumo by Uag, MRSA (sputum culture) and corynebacterium(sputum) #Hypotension, intermittent, improvig #CHF, s/p diuresis, did not tolerate additional diuretics due to low bp in the last few days #S/P Septic Shock #Leukocytosis, likely infection #Anemia, stable Hgb, no e/o bleed #Tobacco Abuse disorder, on nicotine replacement patch #Acute ETOH WD, resolved #DAVID, resolved #Hypernatremia, resolved #Hyperglycemia due to steroids, Lantus stopped 01/14 once steroids stopped. Glucose is now appropriate Plan: -Abx per ID, repeat sputum cultures and blood cutures pending. C-Diff negative. -will likely proceed with Trach -May benefit from additional diuretics, if does not get today, would consider tomorrow -Monitor glucose now that off Lantus, overall better -Vent per Pulm, he appears to be fighting the michelle currently -Cont Tube feeds which he is tolerating well -Lovenox for DVT proph -Full Code (this was changed from DNR on admission per his request) Dispo: lives in [place] prior to admission. His who lives out of town can act as proxy if a decision regarding trach, etc is needed #Disp: cont inpt admission Cont ICU care. D/W during ICU rounds Subjective: More agitated. BP ok. Vented. Follows minimal commands. Objective: Vital Signs Temp Pulse Resp BP Pulse Ox 37.4 C 112 H 39 H 158/78 H 90 L 01/17/17 10:00 01/17/17 10:00 01/17/17 10:00 01/17/17 10:00 01/17/17 10:00 Microbiology 01/12/17 12:00 - Final Sputum, Induced/Suctioned Sputum Culture - Final Klebsiella Pneumoniae Ssp Pneu 01/16/17 16:40 - Final Sputum, Induced/Suctioned Laboratory Results 01/17/17 04:20 01/17/17 04:20 01/16/17 01/17/17 01/18/17 05:59 05:59 05:59 Intake Total 3045 2952 Output Total 1875 1525 Balance 1170 1427 PT 16.1 SEC (12.0-15.0) H 01/04/17 20:15 INR 1.29 (0.83-1.16) H 01/04/17 20:15 - Physical Exam Constitutional: uncomfortable Eyes: PERRL, EOMI Ears, Nose, Mouth, Throat: moist mucous membranes Cardiovascular: regular rate and rhythym, edema (bilateral hands, no LE edema) Respiratory: other (coars bilaterally), No no respiratory distress Gastrointestinal: normoactive bowel sounds Skin: warm Neurologic: No facial droop Psychiatric: encephalopathic, No interacting appropriately Lymph, Heme, Immunologic: No petechiae ICD10 Worksheet Patient Problems: Problems Problem Status Onset Methicillin resistant Staphylococcus aureus infection Acute ~01/04/17 Pneumonia Acute Respiratory failure Acute Severe sepsis Acute COPD (chronic obstructive pulmonary disease) Acute COPD exacerbation Acute Chest pain Acute Chronic Diseaes Mgmt/Transitional Care Acute Dyspnea Acute Hypoxemia Acute
[2017-01-17 11:25] LABS: O2 CONCENTRATIION 70 % (0-100); PCO2 VENOUS 95 mmHg (40-44); PH VENOUS BLOOD 7.23 (7.31-7.42); PO2 VENOUS 56 mmHg (35-40); TCO2 VENOUS 41 mEq/L (23-27); VEN MEASURED OXYGEN SATURATION 82 % (65-75)
[2017-01-17 11:29] LABS: HEMATOCRIT 28.5 % (40.0-51.0); HEMOGLOBIN 8.5 g/dL (13.7-17.5)
[2017-01-17] MEDS ORDERED: CEFEPIME HCL 2 GM in D5W 100 ML IV SCH (13:30)
--- NOTE | 2017-01-17 13:33 | PCMIDPN ---
Assessment/Plan: 1. Severe, multi lobar pneumonia secondary to MRSA and Corynebacterium striatum in 56-year-old male with history of COPD/alcoholism: Agree that most likely reason for lack of improvement/clinical deterioration is the fact that his left lung is putrefying. It is unclear whether not the Klebsiella pneumoniae is contributing, but given the fact that he continues to be critically ill with no improvement, will add Meropenem 1 g IV q.8 hours pending identification of 2nd Gram-negative rajeev. Of note, the patient is listed as having a penicillin allergy; per pharmacy, the patient received a dose of ertapenem in the distant past and is not listed as having had an allergic response to this. In my clinical opinion, the benefits of carbapenem therapy outweigh the risks. When I spoke to the patient about his allergy yesterday, he shrugged his shoulders when I asked him about what happened with penicillin in the past. When I asked him if his ex or any family members would know, he shook his head. For now, will proceed with Meropenem. He will probably need a tracheostomy in short order. Case discussed with Dr. Lopez. 01/17/17 13:39 Subjective: Remains extremely ill, with high oxygen requirements and fevers. White blood cell count slightly down today. Was started on linezolid yesterday by me. Previous rare gram-negative rajeev is now speciated as Klebsiella pneumoniae, resistant to levofloxacin. I called the microbiology lab regarding the repeat sputum sent yesterday. They state that he now has more (2+ or more) probable Klebsiella pneumoniae on the plate, as well as what they feel is a different gram-negative rajeev. The patient is intubated and heavily sedated. Objective: Linezolid 600 mg IV q.12 hours day 1, antibiotics day 12 (status post vancomycin times 11 days) T-max 38degrees for 80% FiO2 Vital Signs Temp Pulse Resp BP Pulse Ox 37.2 C 108 H 18 126/64 H 95 01/17/17 12:00 01/17/17 12:00 01/17/17 12:00 01/17/17 12:00 01/17/17 12:00 Microbiology 01/12/17 12:00 - Final Sputum, Induced/Suctioned Sputum Culture - Final Klebsiella Pneumoniae Ssp Pneu 01/16/17 16:40 - Final Sputum, Induced/Suctioned Laboratory Results 01/17/17 11:16 01/17/17 04:20 01/16/17 01/17/17 01/18/17 05:59 05:59 05:59 Intake Total 3045 2952 Output Total 1875 1525 Balance 1170 1427 January 16 sputum Gram stain: 2+ PMNs, 2+ Gram-positive rods, 1+ Gram-positive cocci; culture as per micro lab with more growth of the gram-negative rajeev previously identified as Klebsiella pneumoniae. They also feel there is a 2nd gram-negative rajeev yet to be identified. - Physical Exam General Appearance: other (Intubated and sedated) Respiratory: wheezing, coarse breath sounds Cardiac/Chest: tachycardia Extremities: other (PICC line left upper extremity okay) Abdomen: non-tender, soft Skin: No rash ICD10 Worksheet Patient Problems: Problems Problem Status Onset Methicillin resistant Staphylococcus aureus infection Acute ~01/04/17 Pneumonia Acute Respiratory failure Acute Severe sepsis Acute COPD (chronic obstructive pulmonary disease) Acute COPD exacerbation Acute Chest pain Acute Chronic Diseaes Mgmt/Transitional Care Acute Dyspnea Acute Hypoxemia Acute
[2017-01-17] MEDS ORDERED: MEROPENEM 1 GM in NS 100 ML IV SCH (13:45)
[2017-01-17] MEDS: MEROPENEM 1 GM in NS 100 ML IV SCH ×2 (14:34→21:40)
[2017-01-18] MEDS: PROPOFOL/EMULSION 100 ML IV SCH ×4 (00:29→19:01)
[2017-01-18] MEDS: INSULIN LISPRO 100 UNIT/ML SC SCH ×5 (00:29→23:50)
[2017-01-18] MEDS: ALBUTEROL 200 PUFFS/18 GM MDI IH SCH ×7 (00:31→23:06)
[2017-01-18] MEDS: ACETAMINOPHEN 650 MG/20.3 ML UDCUP TUBE PRN ×2 (02:11→19:32)
[2017-01-18 04:17] LABS: % IMMATURE GRANULYOCYTES 0.7 % (0.0-1.1); ABSOLUTE IMMATURE GRANULOCYTES 0.08 10^3/uL (0.00-0.10); ABSOLUTE NRBC COUNT 0.02 10^3/uL (0-0.01); ADD DIFF? NO; ADD MORPH? NO; ADD SCAN? NO; ATYPICAL LYMPHOCYTE FLAG 0 (0-99); FRAGMENT RBC FLAG 0 (0-99); HEMATOCRIT 23.5 % (40.0-51.0); LEFT SHIFT FLG 10 (0-99); LIPEMIA HEMOLYSIS FLAG 70 (0-99); MEAN CELL HEMOGLOBIN 28.9 pg (27.9-34.1); MEAN CELL HEMOGLOBIN CONCENTR. 29.8 g/dL (32.4-36.7); MEAN CELL VOLUME 97.1 fL (81.5-99.8); MEAN PLATELET VOLUME 9.7 fL (8.7-11.7); NRBC-AUTO% 0.2 % (0.0-0.2); PCO2 VENOUS 76 mmHg (40-44); PH VENOUS BLOOD 7.36 (7.31-7.42); PLATELET CLUMPS FLAG 0 (0-99); PLATELET COUNT 200 10^3/uL (150-400); PO2 VENOUS 39 mmHg (35-40); RED BLOOD CELL COUNT 2.42 10^6/uL (4.40-6.38); RED CELL DISTRIBUTION WIDTH 14.5 % (11.5-15.2); TCO2 VENOUS 43 mEq/L (23-27); VEN MEASURED OXYGEN SATURATION 67 % (65-75)
[2017-01-18] MEDS: IPRATROPIUM HFA INHALER IH SCH ×4 (04:17→19:52)
[2017-01-18 04:19] LABS: END TIDAL CO2 30; O2 CONCENTRATIION 70 % (0-100); SIMV YES; TOTAL RATE 28
[2017-01-18 04:20] LABS: PRESSURE SUPPORT 15
[2017-01-18 04:38] LABS: CALCIUM 10.3 mg/dL (8.5-10.4); CHLORIDE 94 mEq/L (97-110); CREATININE 0.4 mg/dL (0.7-1.3); GLOMERULAR FILTRATION RATE > 60; GLUCOSE 169 mg/dL (70-100); POTASSIUM 4.2 mEq/L (3.5-5.2); SODIUM 143 mEq/L (134-144)
[2017-01-18 04:45] LABS: ANION GAP 0 mEq/L (8-16)
[2017-01-18 04:47] LABS: CARBON DIOXIDE 49 mEq/l (22-31)
[2017-01-18] MEDS: MEROPENEM 1 GM in NS 100 ML IV SCH (05:11)
[2017-01-18] MEDS: POTASSIUM CL 20 MEQ/15 ML UDCUP TUBE SCH (08:29)
[2017-01-18] MEDS: LINEZOLID 600 MG/DEXTROSE 300 ML IV SCH (08:30)
[2017-01-18] MEDS: ENOXAPARIN 40 MG/0.4 ML SYR SC SCH (08:30)
[2017-01-18] MEDS: CHOLECALCIFEROL VIT D3 2,000 UNITS TAB/CAP PO SCH (08:30)
[2017-01-18] MEDS: CHLORHEXIDINE GLUCONATE 15 ML UDL PO SCH ×2 (08:30→19:32)
[2017-01-18] MEDS: NICOTINE 14 MG/24 HR PATCH TD SCH (08:30)
[2017-01-18] MEDS: FAMOTIDINE 20 MG TAB TUBE SCH ×2 (08:34→19:34)
--- NOTE | 2017-01-18 09:34 | PDINTPN ---
Conference Planning Manager Progress Note Assessment/Plan: Assessment: 56 M who resides in [place] admitted 01/02/17 with hypoxia and pneumonia. He was initially listed as DNR but changed his mind during this admission. Initial therapy included levaquin, but his O2 requirement was growing and he was eventually treated with bipap the night of 01/03. However, at Dr. Santana's initial eval early 01/04, he was markedly tachypneic and unable to answer questions, necessitating emergent intubation. His history also includes significant ETOH, for which he was getting scheduled Vodka and Librium. He is on chronic O2 at 6 lpm, but admission labs suggests chronic hypoxemia (elevated hct); and has CHF with an EF of only 35-40% on 01/02/17. His CXR prior to ETT looked similar in distribution but more consolidated. * Acute respiratory failure with hypoxemia and hypercapnia- 2/2 Exensive PNA with elevated procalcitonin, as well as significant underlying emphysema. Scx with MRSA- was on clinda, levaquin and vanco, but reduced to vanco monotherapy with subsequent worsening so restarted clinda/levequin 01/10 and discussed with ID. Bronch wash 01/08/17 with GPR (corynebacterium). CT chest 01/10 showed dense consolidation of left lung without abscess or necrosis at this point. Bronch 01/12 moderate-large amount of mucopurulent secretions, growing GNR. CT 01/15 shows increased consolidation, possible areas of abscess/necrosis. Unable to wean FIO2. PCO2 of 55-60 is likely his baseline. His CO2 is significantly higher today. * MRSA Pneumonia: Progressing despite Vancomycin, now changed to Linezolid. I suspect there is necrosis/abscess contributing to antibiotic failure. ? significance of rare growth of K. Pneumonia, not currently covered by antibiotics (is resistant to Levaquin, which was stopped 01/15). * ETOH- since he was getting Vodka daily prior to intubation but has been off since, should be past the point of severe withdrawal. On propofol, fentanyl. * COPD by history- Moderate emphysema on CT. Use albuterol/atrovent QID while on vent. Stopped solumedrol * CHF-Positive fluid balance last few days * Dispo: On 01/04/17 he was unable to communicate 2/2 respiratory distress. He agreed to aggressive treatment, including intubation which was required at that time. * Anemia: Hgb down today * Nutrition: On TF * Decision making: He has no medical power of senior trial attorney and his /ex- is not stepping forward comma children are estranged and cannot be reached. A physician medical power of senior trial attorney will need to be appointed. We will be working with Ethics regarding this. Plan: Continue mechanical ventilation, introduc short CPAP trials today if tolerated. We need to observe spontaneous respirations. If he is unable to wean and as his pneumonia is progressive and not responsive to antibiotics we need to discuss changing to comfort care. Continue linezolid per Infectious Disease, along with meropenem. He will need a tracheostomy if we are going to continue ventilatory support. Continue care otherwise. Adjust fluids to prevent volume overload. Follow laboratory, arterial blood gas, chest x-ray. His prognosis is very poor, with progressive worsening of densely consolidated pneumonia/necrosis despite antibiotic therapy. He is very unlikely to survive this illness despite ongoing and extraordinary care. 50 min of critical care time spent directly with the patient. Discussed with nursing, respiratory therapy, hospitalist, Infectious Disease, Language Assistant, and the ICU multi disciplinary team. Addendum: 4:30 p.m.. I spoke to the patient's , Jasmin, in [place]. She has not seen him for 15 years but they are still legally . She worked as a medical social worker in a residential and understands medical issues. She does not want him to suffer. If there is no meaningful chance of survival she would wish to change to comfort care only and allowed natural to proceed. She cannot and does not want to comma out. She in the patient do have 3 children ages 17-22 who are themselves disabled Subjective: Sedated, on ventilator Objective: Vital Signs Temp Pulse Resp BP Pulse Ox 37.9 C 108 H 28 H 165/77 H 88 L 01/18/17 08:00 01/18/17 08:51 01/18/17 08:51 01/18/17 08:00 01/18/17 08:51 Microbiology 01/16/17 15:05 Blood Panel (PCR) - Final Blood Staph Coagulase Negative 01/16/17 16:40 - Final Sputum, Induced/Suctioned 01/12/17 12:00 - Final Sputum, Induced/Suctioned Sputum Culture - Final Klebsiella Pneumoniae Ssp Pneu Laboratory Results 01/18/17 04:00 01/18/17 04:00 01/17/17 01/18/17 01/19/17 05:59 05:59 05:59 Intake Total 2952 2882 Output Total 1525 1750 Balance 1427 1132 PT 16.1 SEC (12.0-15.0) H 01/04/17 20:15 INR 1.29 (0.83-1.16) H 01/04/17 20:15 Laboratory Tests 01/18/17 04:00 Puncture Site VENOUS VBG pH 7.36 VBG HCO3 41 H VBG Total CO2 43 H VBG O2 Saturation 67 O2 Concentration % 70 Set Respiration Rate 28 SIMV YES Tidal Volume 450 PEEP 15 Pressure Support 15 CXR: Diffuse consolidation of the left lung with severe emphysema and possible necrotizing abscess. Lines and tubes and appropriate positions Physical Exam - Physical Exam General Appearance: mild distress, obtunded (Sedated, on ventilator), No alert EENT: ET tube, other (Nasogastric tube in place) Neck: normal inspection (Jugular venous pressure8) Respiratory: respiratory distress (Mild, tachypneic), decreased breath sounds ( Bilaterally), rales (On left), rhonchi (Central congestion present), wheezing ( Wheezes noted, left greater than right), prolonged expiration, No lungs clear, No normal breath sounds Cardiac/Chest: tachycardia Abdomen: non-tender, soft, other (Tolerating tube feeds), No normal bowel sounds (Decreased, present) Male Genitalia: other (Cruz catheter in place. Input consistently greater than output by about a L per day.) Skin: warm/dry, pallor Extremities: pedal edema (Trace +) Neuro/Psych: no motor/sensory deficits (Appears to move all extremities equally , weakly), cognition abnormalities (Cannot assess.) ICD10 Worksheet Patient Problems: Problems Problem Status Onset Methicillin resistant Staphylococcus aureus infection Acute ~01/04/17 Dyspnea Acute Chest pain Acute Chronic Diseaes Mgmt/Transitional Care Acute COPD exacerbation Acute Pneumonia Acute Hypoxemia Acute COPD (chronic obstructive pulmonary disease) Acute Severe sepsis Acute Respiratory failure Acute
[2017-01-18] MEDS ORDERED: cefTRIAXone 2 GM in D5W 50 ML IV SCH (11:00)
--- NOTE | 2017-01-18 11:04 | PCMIDPN ---
Assessment/Plan: Assessment/Plan: * Severe sepsis due to left-sided pneumonia with underlying tobacco and alcohol abuse: Persistent severe pneumonia which is likely primarily continued to be driven by MRSA and Corynebacterium striatum. Role of Klebsiella unclear at this point in time with BAL specimen showing gram-positive itz on Gram stain but subsequently growing Klebsiella pneumoniae x2 species. Will narrow meropenem to ceftriaxone based on recent Klebsiella susceptibility pattern. Continue linezolid which is being utilized over vancomycin with goals of increased tissue penetration into hepatized lung. 01/18/17 11:01 Subjective: Intubated, sedated. Continued high FiO2 needs. Objective: Vital Signs Temp Pulse Resp BP Pulse Ox 37.7 C 114 H 28 H 157/77 H 92 01/18/17 10:00 01/18/17 10:00 01/18/17 10:00 01/18/17 10:00 01/18/17 10:00 Microbiology 01/16/17 15:05 Blood Panel (PCR) - Final Blood Staph Coagulase Negative 01/16/17 16:40 - Final Sputum, Induced/Suctioned 01/12/17 12:00 - Final Sputum, Induced/Suctioned Sputum Culture - Final Klebsiella Pneumoniae Ssp Pneu Laboratory Results 01/18/17 04:00 01/18/17 04:00 01/17/17 01/18/17 01/19/17 05:59 05:59 05:59 Intake Total 2952 2882 Output Total 1525 1750 Balance 1427 1132 Linezolid # 2 (antibiotics # 12) Meropenem # 2 - Physical Exam General Appearance: other (Intubated, sedated) EENT: ET Tube, No scleral icterus, No conjunctival petechiae Respiratory: respiratory distress (Increased respiratory effort on ventilator) Cardiac/Chest: tachycardia Extremities: No inflammation Abdomen: non-tender, No distended Skin: No rash - Line/s LUE PICC Lines: No drainage, No erythema ICD10 Worksheet Patient Problems: Problems Problem Status Onset Methicillin resistant Staphylococcus aureus infection Acute ~01/04/17 Pneumonia Acute Respiratory failure Acute Severe sepsis Acute COPD (chronic obstructive pulmonary disease) Acute COPD exacerbation Acute Chest pain Acute Chronic Diseaes Mgmt/Transitional Care Acute Dyspnea Acute Hypoxemia Acute
--- NOTE | 2017-01-18 13:07 | ASMTCMCOM ---
CM Note CM Note Notes: Contacted Ethics and asked if they could provide an MD Ethics decision maker. Patient has been in [facility] since 01/02/17, vented, necrotizing PNA and has had end stage lung dis according to [employer] [facility]. CM to follow. Date Signed: 01/18/2017 01:07 PM Electronically Signed By:Gerri Graham LCSW
--- NOTE | 2017-01-18 14:24 | HOSPPROG ---
Hospitalist Progress Note Assessment/Plan: 56 yo male with hx of COPD and chronic resp failure on 6 L daily at baseline admitted for acute on chronic respiratory failure, sepsis, and left sided pneumonia. # Acute on chronic Respiratory failure, etiology multifactorial COPD, pneumonia - remains on the ventilator- oxygen saturations 94% on 80% FiO2 Chest x-ray personally reviewed and interpreted) dense left lung consolidation - continue antibiotics per Infectious Disease- ceftriaxone and linezolid - continued inhaled beta agonists - continue ventilator support # Acute COPD exacerbation- continue Ventolin, Atrovent, off steroids # multi lobar pneumonia 2/2 MRSA (sputum culture) and corynebacterium(sputum) -Previously on Clindamycin, Levaquin, which were stopped 01/15. Vancomycin stopped 01/16. - Now on Linezolid (start 01/16) and ceftriaxone started today # Hypotension, intermittent- continue fluids with tube feeds- minimizing sedation #CHF, s/p diuresis, did not tolerate additional diuretics due to low bp - continue to monitor # Leukocytosis- WBC 10 this a.m. secondary to pneumonia Continue antibiotics as above # Hyperglycemia due to steroids, Lantus stopped 01/14 once steroids stopped - BS 150-225 - continue sliding scale insulin # S/P Septic Shock # Anemia, stable Hgb, no e/o bleed # Tobacco Abuse disorder, on nicotine replacement patch # Acute ETOH WD, resolved # DAVID, resolved # Hypernatremia, resolved # FEN - Cont Tube feeds which he is tolerating well # DVT proph Lovenox # Full Code (this was changed from DNR on admission per his request) #Disp - > 2MN as remains critically ill - working to establish guardian for ultimate goals of care I have discussed the case with Dr. Harris- improvement has been very limited - working to establish guardianship and appropriate tailor care Subjective: no events overnight Objective: Vital Signs Temp Pulse Resp BP Pulse Ox 38.1 C 109 H 28 H 124/64 H 94 01/18/17 14:00 01/18/17 14:00 01/18/17 14:00 01/18/17 14:00 01/18/17 14:00 Microbiology 01/08/17 15:45 Mycobacterial Smear (KATHLEEN) - Final Lung Left Lower Lobe - Bronchial Washings 01/16/17 15:05 Blood Panel (PCR) - Final Blood Staph Coagulase Negative 01/16/17 16:40 - Final Sputum, Induced/Suctioned 01/12/17 12:00 - Final Sputum, Induced/Suctioned Sputum Culture - Final Klebsiella Pneumoniae Ssp Pneu Laboratory Results 01/18/17 04:00 01/18/17 04:00 01/17/17 01/18/17 01/19/17 05:59 05:59 05:59 Intake Total 2952 2882 Output Total 1525 1750 Balance 1427 1132 PT 16.1 SEC (12.0-15.0) H 01/04/17 20:15 INR 1.29 (0.83-1.16) H 01/04/17 20:15 - Physical Exam Constitutional: appears nourished Eyes: anicteric sclera Ears, Nose, Mouth, Throat: dry mucous membranes Cardiovascular: regular rate and rhythym, systolic murmur Respiratory: expiratory wheeze, rhonchi Gastrointestinal: normoactive bowel sounds Genitourinary: no bladder fullness Skin: warm Musculoskeletal: No asymmetric calves Neurologic: No AAOx3 Psychiatric: other (sedated) Lymph, Heme, Immunologic: no cervical LAD ICD10 Worksheet Patient Problems: Problems Problem Status Onset Methicillin resistant Staphylococcus aureus infection Acute ~01/04/17 Pneumonia Acute Respiratory failure Acute Severe sepsis Acute COPD (chronic obstructive pulmonary disease) Acute COPD exacerbation Acute Chest pain Acute Chronic Diseaes Mgmt/Transitional Care Acute Dyspnea Acute Hypoxemia Acute
--- NOTE | 2017-01-18 15:28 | ASMTCMCOM ---
CM Note CM Note Notes: Caroline Kaur MD from Ethics returned my call and kaz be talking with other Ethics advisors and [facility] legal. Ethics to look for MD proxy. Date Signed: 01/18/2017 03:27 PM Electronically Signed By:Gerri Graham LCSW
--- NOTE | 2017-01-18 18:02 | ASMTCMCOM ---
CM Note CM Note Notes: After an extensive background search, I was able to find one relative: , Stefan Del Cid, aka [employer]. According to Stefan (Kat), they have three children in their 20's, but no other living relatives. There are family members related to Kat in [place], but all estranged from [facility]. Kat Del Cid will gladly act as proxy to Mr. Del Cid, stating that she knows him well and still loves him. Her phone is . Date Signed: 01/18/2017 06:02 PM Electronically Signed By:Lindsay Garcia RN
[2017-01-19] MEDS: ALBUTEROL 200 PUFFS/18 GM MDI IH SCH ×3 (04:11→11:52)
[2017-01-19] MEDS: ACETAMINOPHEN 650 MG/20.3 ML UDCUP TUBE PRN ×2 (04:30→10:18)
[2017-01-19] MEDS: INSULIN LISPRO 100 UNIT/ML SC SCH ×2 (05:37→13:52)
[2017-01-19 05:52] LABS: CALCIUM 10.1 mg/dL (8.5-10.4); CHLORIDE 96 mEq/L (97-110); CREATININE 0.4 mg/dL (0.7-1.3); GLOMERULAR FILTRATION RATE > 60; GLUCOSE 115 mg/dL (70-100); POTASSIUM 4.6 mEq/L (3.5-5.2); SODIUM 144 mEq/L (134-144)
[2017-01-19 05:56] LABS: HEMATOCRIT 24.7 % (40.0-51.0); HEMOGLOBIN 7.7 g/dL (13.7-17.5); MEAN CELL HEMOGLOBIN 29.7 pg (27.9-34.1); MEAN CELL HEMOGLOBIN CONCENTR. 31.2 g/dL (32.4-36.7); MEAN CELL VOLUME 95.4 fL (81.5-99.8); RED BLOOD CELL COUNT 2.59 10^6/uL (4.40-6.38); RED CELL DISTRIBUTION WIDTH 14.7 % (11.5-15.2)
[2017-01-19 06:14] LABS: ANION GAP 5 mEq/L (8-16)
[2017-01-19 06:15] LABS: CARBON DIOXIDE 43 mEq/l (22-31)
[2017-01-19] MEDS: IPRATROPIUM HFA INHALER IH SCH ×2 (06:20→11:52)
--- NOTE | 2017-01-19 09:04 | PCMIDPN ---
Assessment/Plan: Assessment/Plan: 1. Sepsis secondary to AUREA pneumonia: - Mrsa and Corynebacterium in cultures. New cultures from recent bronch last week showing Klebsiella. -currently on ceftriaxone, was on linezolid up untill yesterday. see below -Still high o2 requirements -wbc trending up -still with intermittent fevers, -recent CT chest reviewed with worsening AUREA/LLL consolidation with possible abscesses. -discussed care with ob gyn physician assistant and RN. -Possibly to go to comfort measures. 2. HX etoh use: - drinks 6 oz of vodka daily 3. HCV - s/p treatment, -cleared. Meds ceftriaxone 2g daily- 01/18/17 zyvox 01/17-01/18----apparently stopped due to patient being put on morphine. s/p vanco 1.5gm q12- levaquin 750mg daily clinda 600mg q8- solumedrol 20mg daily Subjective: intermittent low grade temps. remains in ICu, intubated, sedated. remains on high FIO2 at 80%. Was apparently restless yesterday, and morphine was given. Objective: Vital Signs Temp Pulse Resp BP Pulse Ox 37.6 C 90 28 H 98/61 L 91 L 01/19/17 06:00 01/19/17 06:00 01/19/17 06:00 01/19/17 06:00 01/19/17 06:00 Microbiology 01/16/17 15:05 Blood Panel (PCR) - Final Blood Staph Coagulase Negative 01/16/17 16:40 - Final Sputum, Induced/Suctioned 01/08/17 15:45 Mycobacterial Smear (KATHLEEN) - Final Lung Left Lower Lobe - Bronchial Washings Laboratory Results 01/19/17 04:15 01/19/17 04:15 01/18/17 01/19/17 01/20/17 05:59 05:59 05:59 Intake Total 4072 2069 Output Total 9060 5445 Balance 1132 594 - Physical Exam General Appearance: other (intubated, sedated) Respiratory: coarse breath sounds Cardiac/Chest: regular rate, rhythm Extremities: No swelling Abdomen: normal bowel sounds, non-tender, soft, other (colostomy), No distended Skin: No erythema ICD10 Worksheet Patient Problems: Problems Problem Status Onset Methicillin resistant Staphylococcus aureus infection Acute ~01/04/17 Pneumonia Acute Respiratory failure Acute Severe sepsis Acute COPD (chronic obstructive pulmonary disease) Acute COPD exacerbation Acute Chest pain Acute Chronic Diseaes Mgmt/Transitional Care Acute Dyspnea Acute Hypoxemia Acute
[2017-01-19] MEDS: PROPOFOL/EMULSION 100 ML IV SCH (10:17)
[2017-01-19] MEDS: NICOTINE 14 MG/24 HR PATCH TD SCH (10:18)
[2017-01-19] MEDS: POTASSIUM CL 20 MEQ/15 ML UDCUP TUBE SCH (10:18)
[2017-01-19] MEDS: FAMOTIDINE 20 MG TAB TUBE SCH (10:19)
[2017-01-19] MEDS: ENOXAPARIN 40 MG/0.4 ML SYR SC SCH (10:19)
[2017-01-19] MEDS: CHOLECALCIFEROL VIT D3 2,000 UNITS TAB/CAP PO SCH (10:19)
[2017-01-19] MEDS: CHLORHEXIDINE GLUCONATE 15 ML UDL PO SCH (10:19)
[2017-01-19 12:04] VITALS: BP 86/55
[2017-01-19] MEDS ORDERED: GLYCOPYRROLATE 0.2 MG/1 ML VIAL IVP PRN (13:47)
[2017-01-19] MEDS ORDERED: LORazepam 2 MG/ML INJ IVP PRN (13:47)
[2017-01-19 13:54] VITALS: PULSE 92; RESP 7; TEMP 99.7; O2SAT 97
--- NOTE | 2017-01-19 13:57 | PDINTPN ---
Communication Clerk Progress Note Assessment/Plan: Assessment/Plan: Please see extensive notes from myself and others over the last several days. The patient had end-stage lung disease prior to this hospitalization, requested intubation and mechanical ventilation, but has had progressive respiratory failure and necrotizing pneumonia. There is no meaningful chance of survival. In light of his poor prognosis and inability to come off the ventilator secondary to severe underlying lung disease we will proceed with comfort care only, extubation, and thus allowed natural . and others have spoken to the patient's in [place]. She requests the extubation and comfort care. She does not want to see the patient suffer any longer. A number of his caregivers from [facility] are at his bedside. Subjective: Sedated, unresponsive, on the ventilator. Tachypneic. Objective: Vital Signs Temp Pulse Resp BP Pulse Ox 37.6 C 92 7 L 86/55 L 97 01/19/17 13:53 01/19/17 13:53 01/19/17 13:53 01/19/17 13:53 01/19/17 13:53 Microbiology 01/16/17 15:05 Blood Panel (PCR) - Final Blood Staph Coagulase Negative 01/16/17 16:40 - Final Sputum, Induced/Suctioned 01/08/17 15:45 Mycobacterial Smear (KATHLEEN) - Final Lung Left Lower Lobe - Bronchial Washings Laboratory Results 01/19/17 04:15 01/19/17 04:15 01/18/17 01/19/17 01/20/17 05:59 05:59 05:59 Intake Total 2882 2069 Output Total 1750 1475 Balance 1132 594 PT 16.1 SEC (12.0-15.0) H 01/04/17 20:15 INR 1.29 (0.83-1.16) H 01/04/17 20:15 Physical Exam - Physical Exam General Appearance: mild distress, obtunded EENT: ET tube Respiratory: decreased breath sounds Cardiac/Chest: regular rate, rhythm Abdomen: soft ICD10 Worksheet Patient Problems: Problems Problem Status Onset Methicillin resistant Staphylococcus aureus infection Acute ~01/04/17 Pneumonia Acute Respiratory failure Acute Severe sepsis Acute COPD (chronic obstructive pulmonary disease) Acute COPD exacerbation Acute Chest pain Acute Chronic Diseaes Mgmt/Transitional Care Acute Dyspnea Acute Hypoxemia Acute
--- NOTE | 2017-01-19 16:34 | ASDISCHSUM ---
Discharge Information Plan Status: Medically Cleared to Leave:01/18/2017 Discharge Date:01/19/2017 02:22 PM CM D/C Disposition: ADT D/C Disposition: Projected Discharge Date:01/19/2017 12:00 AM Transportation at D/C: Discharge Delay Reason: Follow-Up Date:01/19/2017 12:00 AM Discharge Slot: Final Diagnosis:PNA Respiratory Failure, COPD Placement Information Patient Contact Information Contact Name:ZACHARIAH Relationship:Other Address:[address] Work Phone: City:[facility] Phone: State/Zip Code:[place] [address] Email: Financial Information Financial Class: Primary Plan Desc:MEDICARE INPATIENT Primary Plan Number:[id number] Secondary Plan Desc:MEDICA[place] Secondary Plan Number:[id number] Assessment Information [facility] Progress Note CM Note CM Note Notes: Pt is a resident of [facility], per RN he is "up and about in wheelchair" , "can take care of self" History of etoh dependence, get 6oz alcohol 2 times a day. DC needs unclear, LUISA w/f Date Signed: 01/02/2017 12:40 PM Electronically Signed By:Laura Colon RN [facility] CM Progress Note CM Note CM Note Notes: [facility] contacted to locate possible family members. Reeves kacie reports that he is his own decision maker and that no family members were listed in his record. Patient's MOST form states that he wanted "limited interventions" when asked he wanted to be intubated he reported that he did, so patient now on the vent. Date Signed: 01/04/2017 04:01 PM Electronically Signed By:Gerri Graham LCSW [facility] Progress Note CM Note CM Note Notes: Spoke with spiritual care re: the Most form and updating it with patient's current wishes. The current MOST form on file was completed in 2014 and is DNR. Patient is now requesting full code. Spiritual care will f/u with patient to clarify. Still awaiting therapy recommendations to determine d/c needs. CM will follow. Date Signed: 01/07/2017 12:08 PM Electronically Signed By:Ellen Glaser LCSW [facility] CM Progress Note CM Note CM Note Notes: Spoke with Tanisha, the nurse mutual fund manager for [facility] who was unable to find any other names than what she gave Joselito from our ethics team. She did fax patients "[employer]" information which has been placed in patient's medical record. Tanisha did ask if an employee of [employer] could serve as an MDPOA and her corporate office said no. We do not have any contact information for the children other than [facility] thinks they might be in [place]. Patient states he does not know where his children are. Tanisha did talk to patient's therapist as well and he did not know where the children are and he did not know of any names of people who could possibly serve as MDPOA. CM will follow. Date Signed: 01/08/2017 05:05 PM Electronically Signed By:Ellen Glaser LCSW [facility] CM Progress Note CM Note CM Note Notes: Ethics contacted an asked to come in Wednesday to determine decision making. Date Signed: 01/10/2017 05:12 PM Electronically Signed By:Gerri Graham LCSW [facility] CM Progress Note CM Note CM Note Notes: MD proxy process has been initiated due to the patient not having any family or friends that can serve in this capacity. Patient continues on mechanical ventilation for now. Bronchoscopy scheduled for today. Patient is slowly improving. D/C plan continues to be return to [facility] at this time.CM will follow. Date Signed: 01/13/2017 01:25 PM Electronically Signed By:Ellen Glaser LCSW [facility] CM Progress Note CM Note CM Note Notes: Today in rounds SWer learned that Pt. still not decisional and on day 10 of intubation and that SWer should f/u with Ethics consulters about process of establishing a proxy. Tu Arce MD on for Ethics today. Tu came to ICU to review case and make recommendations. Tu and Lindsay Garcia, of CM met. Tu and Lindsay think [facility] might be able to find appropriate Proxy decision maker through [facility] - perhaps a friend there or the former Rn Office "Rashid" who knew Pt. well. Perhaps can coordinate meeting of interested parties from [facility] here at [facility] and will be able to find a possible proxy. It seems that finding a physican proxy may prove difficult. Tu stated Ethics would be following. CM to follow. Date Signed: 01/14/2017 04:39 PM Electronically Signed By:Ev Stephens LCSW [facility] Progress Note CM Note CM Note Notes: Patient is currently to his , Jasmin. They never got a divorce. Kat lives in [place] with their three children. The three kids are in their 20's with developmental disabilities of varying degrees. Jasmin let me know that the reason that Kye and she are not together is because of his alcoholism - "he just disappeared". She said that Kye started drinking heavily after the of one of their children (infant) many years ago. Jasmin also let me know that Kye does not have any living relatives besides her. Kat Nehemias can be reached at [phone]. Date Signed: 01/14/2017 08:34 PM Electronically Signed By:Lindsay Garcia RN [facility] CM Progress Note CM Note LUISA Note Notes: Spoke with Jasmin Del Cid ([phone]) patient's and MDPOA regarding her request to have dr call her about patient being trached. Jasmin would like patient to have a trach as soon as medically possible. Dr. Lopez states patient will not be ready for this until around Wednesday or Wednesday of next week. The can call at that time. Jasmin also wants the staff to know to call her at any time we need an MDPOA involved in the decision making process. CM will follow. Date Signed: 01/15/2017 02:18 PM Electronically Signed By:Ellen Glaser LCSW [facility] CM Progress Note CM Note CM Note Notes: Contacted Ethics and asked if they could provide an MD Ethics decision maker. Patient has been in [facility] since 01/02/17, vented, necrotizing PNA and has had end stage lung dis according to Transit Planning Director. CM to follow. Date Signed: 01/18/2017 01:07 PM Electronically Signed By:Gerri Graham LCSW [facility] CM Progress Note CM Note CM Note Notes: Caroline Kaur MD from Ethics returned my call and kaz be talking with other Ethics advisors and [facility] legal. Ethics to look for MD proxy. Date Signed: 01/18/2017 03:27 PM Electronically Signed By:Gerri Graham LCSW [facility] Progress Note CM Note CM Note Notes: After an extensive background search, I was able to find one relative: , Stefan Del Cid, aka [employer]. According to Stefan (Kat), they have three children in their 20's, but no other living relatives. There are family members related to Kat in [place], but all estranged from [facility]. Kat Del Cid will gladly act as proxy to Mr. Del Cid, stating that she knows him well and still loves him. Her phone is . Date Signed: 01/18/2017 06:02 PM Electronically Signed By:Lindsay Garcia RN Case Management Discharge Plan Note Case Management Discharge Discharge Order Complete? Answers: No Family Notified Answers: Yes Notes: ceci Rose notified Discharge Comments Notes: [facility] alerted that patient would be W/D from care Wednesday so they could pay their respects Wednesday. Patient W/D from care. contacted regarding cremation needs by . Date Signed: 01/19/2017 04:34 PM Electronically Signed By:Gerri Graham LCSW Intervention Information
--- NOTE | 2017-01-19 20:47 | GDS ---
[f rep st] DISCHARGE SUMMARY DATE OF : 01/19/2017. HISTORY OF PRESENT ILLNESS: This is a 56-year-old male with a history of COPD and chronic respirator y failure, baseline oxygen requirements of about 6 L, who was admitted on 01/02/2017 with left-sided pneumonia and sepsis. For details of the patient's initial presentation, please see the history and physical dated 01/02/2017. HOSPITAL COURSE: By issue: 1. Acute on chronic respiratory failure secondary to COPD and progressive pneumonia. The patient thacker d a multilobar pneumonia. He was initially treated for community-acquired pneumonia and then found t o have MRSA in his sputum cultures as well as corynebacterium. The patient was transitioned from cli ndamycin, Levaquin and vancomycin to linezolid and ceftriaxone. The patient continued to progress ev en on appropriate pathogen directed therapy. It was felt in the last 48 hours of his care that the p atient was not responding appropriately to treatment and likely his medical comorbidities would keep him from successful recovery. Family was contacted. His , although estranged from him secondary to alcohol abuse for 15 years, knew confidently that he would not want prolongation of extensive car e. The patient was made comfort care on 01/19/2017 and quickly after extubation. He was jaylon rounded by friends from [facility], his most recent living facility. 2. Sepsis. The patient was treated and hemodynamically stabilized after his initial diagnosis of se psis but as outlined above had progression of his pulmonary infection leading ultimately to his demis e. /[id number]/MODL
== END 2017-01-19 14:22 | disposition expired | DRG 870 ==
LOC: EDUNIT# → F2N 09:40
PROVIDERS: ADMIT Family Medicine; ATTEND Family Medicine
PROC: 5A1955Z Respiratory Ventilation, Greater than 96 Consecutive Hours (ICD-10-PCS; principal; 2017-01-04)
PROC: 0BH17EZ Insertion of Endotracheal Airway into Trachea, Via Natural or Artificial Opening (ICD-10-PCS; principal; 2017-01-04)
PROC: 02HV33Z Insertion of Infusion Device into Superior Vena Cava, Percutaneous Approach (ICD-10-PCS; 2017-01-04)
PROC: 0B9B8ZX Drainage of Left Lower Lobe Bronchus, Via Natural or Artificial Opening Endoscopic, Diagnostic (ICD-10-PCS; 2017-01-12)
PROC: 0B968ZX Drainage of Right Lower Lobe Bronchus, Via Natural or Artificial Opening Endoscopic, Diagnostic (ICD-10-PCS; 2017-01-12)
PROC: 0BC18ZZ Extirpation of Matter from Trachea, Via Natural or Artificial Opening Endoscopic (ICD-10-PCS; 2017-01-12)
DX: A41.02 Sepsis due to Methicillin resistant Staphylococcus aureus (principal); J18.8 Other pneumonia, unspecified organism; J96.20 Acute and chronic respiratory failure, unspecified whether with hypoxia or hypercapnia; J44.9 Chronic obstructive pulmonary disease, unspecified; R65.20 Severe sepsis without septic shock; F10.10 Alcohol abuse, uncomplicated; I50.9 Heart failure, unspecified; Z85.038 Personal history of other malignant neoplasm of large intestine; Z87.820 Personal history of traumatic brain injury; Z99.3 Dependence on wheelchair; Z72.0 Tobacco use; Z88.0 Allergy status to penicillin
CPT/HCPCS: 82947-QW; 84481-90; 87449-90; 96365; 97166-GO; C1751; G8987-GO-CL; G8988-GO-CI; J0696; J1120; J1650; J1815; J1940; J1956; J2020; J2060; J2185; J2250; J2405; J2704; J2920; J2930; J3010; J3370; J3475; J3490; P9047; Q9967